=== PATIENT | female | born 1950 | race Caucasian/White ===

== ENCOUNTER 2019-04-14 12:19 | Outpatient (CLI) | payer MEDICARE, OTHER, SELFPAY ==
--- NOTE | 2019-04-14 12:49 | US_ITS ---
WS: [id number] ULTRASOUND-GUIDED LEFT BREAST BIOPSY HISTORY: ABNORMAL MAMMOGRAM LT BREAST COMPARISON: 03/17/2019 and 02/15/2019 Procedure, risks and complications are explained to the patient. Medications are reviewed. Consent is obtained. The mass in the LEFT breast is localized with ultrasound. Mass localized at 9:00, 3 cm from the nippl e. Skin is cleansed with ChloraPrep and anesthetized with 1% buffered lidocaine. Small dermatome is m katja. Under sterile conditions mass is biopsied with a 14-gauge Achieve needle. Multiple core biopsies are performed. Material placed in formalin and sent to pathology for review. No complications encoun tered. Breast tissue marker (Bard ultrasound enhanced ribbon): Yes, single. Patient left the radiology suite with no complications. Patient is instructed to return to [facility] or [facility] with any concerns. 1. Uncomplicated core needle biopsy LEFT breast mass at 9:00, 3 cm from the nipple. US/[place] [id number] IMPRESSION: PATHOLOGY: Invasive ductal carcinoma with mucinous features. Maximum diameter 7 mm. Breast tumor markers are pending. RECOMMENDATION: Follow-up with Dr. Morrell, oncology and breast surgeon.
[2019-04-25 11:55] LABS: Miscellaneous Test See Scanned Lab Rpt
== END 2019-04-14 12:20 | disposition home or self-care (01) ==
LOC: RAD 12:26
PROVIDERS: Radiology Diagnostic Radiology; Family Provider Family Medicine; PCP Family Medicine; Visit Provider Family Medicine
DX: R92.8 Other abnormal and inconclusive findings on diagnostic imaging of breast (principal)
CPT/HCPCS: 19083; 76942; 88305; 88361; 88367; 88374; J2001

== ENCOUNTER 2019-05-19 08:00 | Outpatient (CLI) | payer MEDICARE, OTHER, SELFPAY ==
--- NOTE | 2019-05-19 12:04 | ONC CON_ITS ---
Dr. Cyr New Patient Note Patient: Josephine Barriga Unit #: [id number]: 1950 Dicatated By: El Cyr M.D.Date of Visit: May 19, 2019 Onc MED New Patient/Consult Referring Physician: Dr. Dave Holland M.D. Chief Complaint: Breast cancer. 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 She has been in good general health. She had presented with an abnormal yearly screening mammogram. That study, from 02/15/2019, was BI-RADS 0, incomplete. Findings included a new 7 mm nodular density in the lower inner quadrant of the left breast. Her additional mammographic views and left breast ultrasound on 03/17/2019 was BI-RADS 4B, suspicious. There was again noted to be a 6 mm lesion along the posterior nipple line of the inner lower quadrant left breast. By ultrasound the lesion measured 7.5 x 5.3 x 4.4 mm. It was noted to have a thick-walled rim and a hypoechoic center. Biopsy was recommended. Ultrasound-guided core needle biopsy on 04/14/2019 showed invasive ductal carcinoma with mucinous features, favoring grade 1/3. The tumor was noted to measure 7 mm in greatest dimension. The breast prognostic profile showed ER positive at 94% and MA positive at 93%. HER-2/brandee was negative by IHC (0) and by FISH, amplification ratio 1.1 with 2.8 HER-2 copies per cell. The Ki-67 was slightly elevated at 20%. She was referred to Dr. Holland in [place]. On 05/04/2019 she underwent left breast lumpectomy with axillary sentinel lymph node biopsy. Pathology on the lumpectomy showed residual invasive mucinous carcinoma measuring 9 mm in maximum diameter, grade 2. There was a minor component of DCIS, less than 1 mm. The margins were free. The closest margin to invasive carcinoma was the superior margin at 1.5 mm. There was DCIS within 4 mm of the inferior and medial margins. There was no involvement in 2 sentinel lymph nodes. She is seen for further management of the breast cancer. She has been feeling good generally. She has good energy and activity tolerance. ECOG score is 0. Her appetite is good. She has no fever, night sweats, or hot flashes. She has no shortness of breath, cough, or chest pain. Her acid reflux is adequately managed with Nexium. She currently has no GI or complaints. She has no significant joint or bone pain. She has no focal neurologic symptoms. She underwent natural menopause at age 57. She had only 2 months of hormone replacement therapy. She did have a 25-year history of oral contraceptive use. A sister has been treated for breast cancer and a maternal aunt also had breast cancer. Past Medical History: Her only other medical illness is gastroesophageal reflux disease. Past Surgical History: She underwent ultrasound-guided core needle biopsy of the left breast on 04/14/2019. She underwent left breast lumpectomy with axillary sentinel lymph node biopsy on 05/04/2019. Her other surgical/procedural history includes vein stripping on the right leg in 2018 and bunionectomy on the right foot in 2011. Medications: NexIUM 1 (20 mg) Capsule Delayed Release Oral daily, Tums 1 (500 mg) Tablet, chewable Oral PRN Allergies: No Known Allergies. Social History: Ms. Barriga is and she is an unknown. Ms. Barriga has never smoked. She has no history of drinking. She had smoked in the past but she had quit by her early 20s. She has occasional alcohol use. Family History: Ms. Barriga's father is alive. Ms. Barriga has 1 sister who is alive: breast cancer. Father still living at age 97. Mother at age 78 with complications of dementia. A sister has been treated for breast cancer, and a maternal aunt had breast cancer. Another maternal aunt had lung cancer and another had kidney cancer. Review Of Symptoms: Constitutional - Her energy is good. She has normal activity. Her appetite is good and her weight is stable. No fever, chills, hot flashes, or night sweats. ECOG score is 0, Eyes - No recent change in vision, ENMT - No hearing loss or tinnitus. No sinus congestion/drainage. No mouth sores. No sore throat or difficulty swallowing, Hematologic/Lymphatic - No abnormal bruising or bleeding, Respiratory - No shortness of breath. No cough. No pleuritic pain or hemoptysis, Cardiovascular - No angina pain. No palpitations, Gastrointestinal - No nausea or vomiting. Her heartburn and acid reflux is under control with the Nexium. No diarrhea or constipation. No blood in the stool or black stools. She had a screening colonoscopy 3 years ago, Genitourinary (F) - No dysuria or hematuria. No urinary frequency. No urgency or incontinence, Musculoskeletal - She has occasional aches and pains attirbutable to age. She has no other joint or bone pain, Integumentary - No skin complications, Neurologic - No headache or dizziness. No numbness/paresthesias or other focal neurologic symptoms, Psychiatric - No anxiety or depression. No insomnia. Vital Signs: Performed on May 19, 2019 10:24: 65.00 in, 173.8 lbs, 98.2 F, 71, 22, 153/86 mm(hg) (HIGH), 98 %, 0, 0, Performed on May 19, 2019 10:24: 28.922 kg/m2 (HIGH), and Performed on May 19, 2019 08:40: 1.86 sq.m. Physical Examination: Constitutional - She appears to be in good general health, Eyes - Sclerae nonicteric. Conjunctivae clear, ENMT - No lesions noted in the oral cavity, Neck - No mass or thyromegaly, Hematologic/Lymphatic - No cervical or clavicular axillary adenopathy, Respiratory - Lungs are clear with good air movement bilaterally, Cardiovascular - Heart rhythm is regular. There is no no murmur, gallop, or rub noted, Breasts - The right breast shows no mass. There is induration/nodularity superior to the lumpectomy site in the medial aspect of the left breast. The incision appears well-healed. There is no axillary adenopathy noted, Abdomen - Soft and non-tender. Liver and spleen are not enlarged. There is no abdominal mass or ascites noted and there is no inguinal adenopathy, Back/Spine - No spine or CVA tenderness noted, Extremities - No edema. Dorsalis pedis pulses are palpable bilaterally, Integumentary - No rashes. No suspicious skin lesions noted, Neurologic - No focal neurologic deficits noted. Impression: 1. 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 2. She underwent left breast lumpectomy with axillary sentinel lymph node biopsy on 05/04/2019. Pathology showed uninvolved surgical margins. 3. She has a positive family history for breast cancer, including a sister and a maternal aunt. 4. She has GERD which is well controlled with Nexium. Plan: The pathology results, including the breast prognostic profile, were reviewed with the patient and her . We discussed the clinical implications. She has early stage breast cancer which is hormone receptor positive and HER-2/brandee negative. She is aware that she will need to complete radiation to the left breast, and she is scheduled to see Dr. Richards today for further discussion about the radiation. She is also recommended to take adjuvant hormonal therapy for 5 years, preferably with an aromatase inhibitor. I would ordinarily not be inclined to recommend adjuvant chemotherapy in this situation, but she indicated an interest in having further evaluation with Oncotype DX. As such, that study will be requested on the initial biopsy. Assuming her disease is low risk, she will proceed with radiation and she will begin her adjuvant hormonal therapy when her treatment is completed. If Oncotype DX comes back high risk, I will have further discussion regarding adjuvant chemotherapy. We also discussed the issue of genetic testing. Her sister apparently has already been tested, and if she is confirmed to be BRCA negative I do not feel that any additional genetic testing is indicated. Signed By: El Cyr M.D. <<Signature on File>>
--- NOTE | 2019-05-20 11:29 | N.ONRAD NP_ITS ---
Radiation Oncology New Patient Visit Patient: Josephine Barriga MR#: [id number] : 1950> Age: 69> Sex: Female> Dictated by: Dr. Vito Richards Date of Service: 05/19/2019 Referring Physician(s): El Cyr M.D. Primary Diagnosis: Z17.0 - estrogen receptor positive status [er+], Diagnosed 05/19/2019 (active) and C50.312 - malignant neoplasm of lower-inner quadrant of left female breast, Diagnosed 05/19/2019 (active), stage ia, t1b, pn0, m0, g2, her2 neg, er pos, pr p. Previous Treatment: left breast lumpectomy with sentinel lymph node dissection on 05/04/2019 Radiotherapy to date: Summary > No prior radiation therapy. History of Present Illness: This is a 69 y/o female who had an abnormal mammogram, BI-RADS 4B, which showed a 6 mm lesion along the posterior nipple line of the inner lower quadrant left breast. Ultrasound revealed a 7.5 x 5.3 x 4.4 mm hypoechoic nodule. She underwent an Ultrasound-guided core needle biopsy of this lesion which revealed infiltrating ductal carcinoma, favoring grade 1, ER+, AK+, Her 2-, Ki-67 at 20%. She denies any symptoms associated with the diagnosis. Specifically, she denies feeling a nodule/mass, skin changes, and nipple retraction/discharge. The patient underwent left breast lumpectomy with sentinel lymph node dissection on 05/04/2019. Surgical pathology showed invasive mucinous carcinoma measuring 9 mm in maximum diameter, grade 2. There was a minor component of DCIS < 1 mm. Surgical margins were negative. The closest margin to invasive carcinoma was the superior margin at 1.5 mm. There was DCIS within 4 mm of the inferior and medial margins. Two sentinel lymph nodes were negative for cancer. She has recovered well from the surgery with no complications. Oncotype Dx test was ordered and the result is pending. She comes in today to discuss about adjuvant radiation therapy. Current Medications: NexIUM, tums. Allergies: No Known Allergies Medical History: - Gastroesophageal reflux disease. No history of collagen vascular disease. No previous radiation therapy. Surgical History: Bunionectomy on the right foot in 2011, left breast lumpectomy with axillary sentinel lymph node biopsy on 05/04/2019, ultrasound-guided core needle biopsy of the left breast on 04/14/2019 and vein stripping on the right leg in 2019. Family History: Father still living at age 97. Mother at age 78 with complications of dementia. A sister has been treated for breast cancer, and a maternal aunt had breast cancer. Another maternal aunt had lung cancer and another had kidney cancer. Social History: Last screened on 05/19/2019 - Never smoked. - Never drank. Obstetrics/Gynecology History: G3, P2. Age of menarche at 13 years old. Went through natural menopause around age 56. H/O using BCP intermittently for about 25 years. Received HRT for about 2 months. Current Complaints / Review of Systems: Constitutional - Denies lack of appetite, fatigue, fever, night sweats and change in weight. Eyes - Denies blurred vision. ENMT - Denies dysphagia, ear pain, problems with hearing, mouth dryness, stomatitis, altered taste and tinnitus. Neck - Denies neck pain. Integumentary - Denies rash. Breasts - Denies pain. Cardiovascular - Denies arrhythmias and chest pain. Respiratory - Denies cough, dyspnea and wheezing. Gastrointestinal - Complains of heartburn / dyspepsia. Denies abdominal pain, constipation, diarrhea, melena / GI bleeding, nausea and vomiting. Genitourinary (F) - Complains of nocturia 1-3 time/night. Denies dysuria, frequency, urgency, vaginal discharge / bleeding and vaginal spotting. Musculoskeletal - Denies bone pain, joint pain and muscle weakness. Neurologic - Denies dizziness, abnormal gait and headaches. Endocrine - Denies diabetes, hot flashes and thyroid disease. Hematologic/Lymphatic - Denies tender or enlarged lymph nodes. Vital Signs: Performed on 05/19/2019 10:24 AM BMI - 28.922 kg/m2 (high), Height - 65.00 in, Weight - 173.8 lbs, Temperature - 98.2 f, Pulse - 71, Respiration - 22, O2 Sat - 98 %, Pain - 0, Fatigue - 0 and BP - 153/ 86 mm(hg)(high/). Physical Exam: General: Alert and oriented x 3. No acute distress. HEENT: Normocephalic, atraumatic. Extraocular Movements Intact: Pupils Equal, Round, Reactive to Light and Accommodation: Sclerae anicteric. Oral cavity is clear without lesions, masses or ulcers. NECK: Supple without supraclavicular or jugular lymphadenopathy. LUNGS: Clear to auscultation bilaterally without rales, rhonchi or wheeze. HEART: Regular rate and rhythm, normal S1 and S2 without murmur, gallop or rub. BREASTS: There is no mass/nodule palpated of the left breast except a seroma at the incision site. No skin change, nipple discharge or retraction. The surgical incision is healing well with no signs of bleeding or infection. No enlarged lymph nodes in the axilla. Exam of the contralateral breast is unremarkable. MUSCULOSKELETAL: No tenderness or percussion pain over the axial skeleton, scapulae or pelvis. ABDOMEN: Soft, nontender, nondistended without masses or organomegaly. Bowel sounds are present. EXTREMITIES: No peripheral edema is identified. Limited motor and sensory examination are grossly intact and symmetric bilaterally. NEUROLOGIC: Cranial nerves II ???XII are grossly intact. Normal sensation, strength 5/5 in all extremities, normal gait, no ataxia. Performance Status: 0 - Fully active, able to carry on all predisease activities without restrictions. (ECOG) Pathology: invasive mucinous carcinoma grade 2, her2 -, er +, pr + Lab: none pending Imaging: See HPI Impression: The patient is a 69 year old female recently diagnosed with pT1b, pN0, M0 infiltrating mucinous carcinoma of the left breast, grade 2, ER+, AK+, Her2-, s/p left breast lumpectomy with SLN dissection. Surgical margins are negative but close at 1.5mm of the superior margin. Plan: I recommend adjuvant whole breast irradiation to 42.5Gy in 16 fractions followed by a boost of 10Gy to the tumor bed. The procedure, benefit, risks and potential side effects of radiation therapy were explained to the patient and her family in detail. The potential side effects include but are not limited to fatigue, skin reaction, breast swelling/tenderness, fibrosis, slightly increased risk of rib fracture, damage to the lung and heart, lymphedema and secondary malignancy. Ms Barriga has expressed good understanding and decided to proceed with the radiotherapy. We will wait for the result of Oncotype Dx test. If chemotherapy is not indicated, she will come back for CT simulation on 06/05/2019. Signed by: 05/20/2019 11:28:09 AM <<Signature on File>> CPT Code: CPT Code: Signed By: Dr. Vito Richards, 05/20/2019 11:28:10 AM <<Signature on File>>
== END 2019-05-19 08:01 | disposition home or self-care (01) ==
PROVIDERS: Family Provider Family Medicine; PCP Family Medicine; Referring Provider Surgery; Visit Provider Internal Medicine Medical Oncology
DX: C50.312 Malignant neoplasm of lower-inner quadrant of left female breast (principal); Z17.0 Estrogen receptor positive status [ER+]; K21.9 Gastro-esophageal reflux disease without esophagitis; Z98.890 Other specified postprocedural states; Z78.0 Asymptomatic menopausal state; Z80.3 Family history of malignant neoplasm of breast; Z80.51 Family history of malignant neoplasm of kidney; Z80.1 Family history of malignant neoplasm of trachea, bronchus and lung
CPT/HCPCS: 99205

== ENCOUNTER 2019-06-20 06:45 | Outpatient (RCR) | payer MEDICARE, OTHER, SELFPAY ==
--- NOTE | 2019-06-05 | CT_ITS ---
Radiation Therapy Planning CT images; total exam DLP: 919.43 mGy-cm MTDD
--- NOTE | 2019-06-13 09:24 | ONCRAD TMN_ITS ---
Radiation Oncology Weekly Treatment Management Patient: Josephine Barriga MR#: [id number] : 1950> Age: 69> Sex: Female Dictated by: Dr. Ervin Schroeder Date of Service: 06/13/2019 Referring Physician(s) : El Cyr M.D. Primary Diagnosis: Z17.0 - Estrogen receptor positive status [ER+], Diagnosed 05/19/2019 (Active) C50.312 - Malignant neoplasm of lower-inner quadrant of left female breast, Diagnosed 05/19/2019 (Active) Stage IA, T1b, pN0, M0, G2, HER2 Neg, ER Pos, [place] P Radiotherapy to date: Course: LT ProneBreast, Treatment Site: LT Prone Brst, Ref. ID: LT ProneBreast, Energy: 15X/6X, Dose/Fx (cGy): 266, #Fx: , Dose Correction (cGy): 0, Total Dose (cGy): 532, Start Date: 06/12/2019, Elapsed Days: 1 Current Complaints/Interval History: Mrs. Barriga had her second treatment today. She is tolerating the set up well. She has no complaints at this time related to her breast. No questions about the treatment process. I discussed the timing of side effects. She was encouraged to speak up if problems develop. Continue treatment according to plan. Current Medications: NexIUM, tums. Allergies: No Known Allergies Vital Signs: Physical Exam: Appears stable, no skin erythema or desquamation. Performance Status: 0 - Fully active, able to carry on all predisease activities without restrictions. (ECOG) Lab: None pending in Radiation Oncology. Imaging: No new diagnostic imaging was performed since the last weekly treatment visit. All radiation therapy related imaging (including but not limited to kV, MV, and CBCT generated images) was reviewed. Appropriate changes, if any, were made to assure accurate target localization. Impression/Plan: Tolerating treatment well with expected side effects. Continue treatment as planned. CPT: 84985 Signed by: Dr. Ervin Schroeder>06/13/2019 9:22:42 AM <<Signature on File>>
== END 2019-06-20 23:59 | disposition home or self-care (01) ==
LOC: ONCMED 06:45
PROVIDERS: Family Provider Family Medicine; PCP Family Medicine
DX: Z51.0 Encounter for antineoplastic radiation therapy (principal); C50.312 Malignant neoplasm of lower-inner quadrant of left female breast; Z17.0 Estrogen receptor positive status [ER+]
CPT/HCPCS: 77280; 77290; 77295; 77300; 77307; 77332; 77334; 77412; 77417

== ENCOUNTER 2019-06-21 07:43 | Outpatient (RCR) | payer MEDICARE, OTHER, SELFPAY | END 2019-07-20 23:59 | disposition home or self-care (01) | LOC: SPT 07:43 | PROVIDERS: Family Provider Family Medicine; PCP Family Medicine; Referring Provider Specialist; Visit Provider Specialist | DX: I89.0 Lymphedema, not elsewhere classified (principal) | CPT/HCPCS: 97161 ==

== ENCOUNTER 2019-07-07 06:51 | Outpatient (RCR) | payer MEDICARE, OTHER, SELFPAY ==
--- NOTE | 2019-06-27 10:09 | ONCRAD TMN_ITS ---
Radiation Oncology Weekly Treatment Management Patient: Josephine Barriga MR#: [id number] : 1950> Age: 69> Sex: Female Dictated by: Dr. Armani Quesada Date of Service: 06/27/2019 Referring Physician(s) : El Cyr M.D. Primary Diagnosis: Z17.0 - Estrogen receptor positive status [ER+], Diagnosed 05/19/2019 (Active) C50.312 - Malignant neoplasm of lower-inner quadrant of left female breast, Diagnosed 05/19/2019 (Active) Stage IA, T1b, pN0, M0, G2, HER2 Neg, ER Pos, [place] P Radiotherapy to date: Course: LT ProneBreast, Treatment Site: LT Prone Brst, Ref. ID: LT ProneBreast, Energy: 15X/6X, Dose/Fx (cGy): 266, #Fx: , Dose Correction (cGy): 0, Total Dose (cGy): 3,192, Start Date: 06/12/2019, Elapsed Days: 15 Current Complaints/Interval History: Asymptomatic Current Medications: NexIUM, tums. Allergies: No Known Allergies Vital Signs: Physical Exam: Appears stable, no skin erythema or desquamation. Performance Status: 0 - Fully active, able to carry on all predisease activities without restrictions. (ECOG) Lab: None pending in Radiation Oncology. Imaging: No new diagnostic imaging was performed since the last weekly treatment visit. All radiation therapy related imaging (including but not limited to kV, MV, and CBCT generated images) was reviewed. Appropriate changes, if any, were made to assure accurate target localization. Impression/Plan: Tolerating treatment well with expected side effects. Continue treatment as planned. CPT: 52323 Signed by: Dr. Armani Quesada>06/27/2019 10:07:37 AM <<Signature on File>>
== END 2019-07-20 23:59 | disposition home or self-care (01) ==
LOC: ONCMED 06:51
PROVIDERS: Family Provider Family Medicine; PCP Family Medicine; Visit Provider Radiology Radiation Oncology
DX: Z51.0 Encounter for antineoplastic radiation therapy (principal); C50.312 Malignant neoplasm of lower-inner quadrant of left female breast; Z17.0 Estrogen receptor positive status [ER+]
CPT/HCPCS: 77336; 77412; 77417

== ENCOUNTER 2019-08-11 06:46 | Outpatient (RCR) | payer MEDICARE, OTHER, SELFPAY ==
--- NOTE | 2019-08-03 13:01 | ONCRAD EPV_ITS ---
Radiation Oncology Established Patient Visit Patient: Amy MR#: [id number] : 1950> Age: 69> Sex: Female> Account #: Dictated by: Ilda Wilson Date of Service: 08/03/2019 Referring Physician(s) : El Cyr M.D. Diagnosis: Z17.0 - Estrogen receptor positive status [ER+], Diagnosed 05/19/2019 (Active) C50.312 - Malignant neoplasm of lower-inner quadrant of left female breast, Diagnosed 05/19/2019 (Active) Stage IA, T1b, pN0, M0, G2, HER2 Neg, ER Pos, [place] P Radiotherapy to Date: Course: LT ProneBreast, Treatment Site: Boost 10Gy, Ref. ID: LT ProneBreast, Energy: 15X/6X, Dose/Fx (cGy): 250, #Fx: 4 / 4, Dose Correction (cGy): 0, Total Dose (cGy): 1,000, Start Date: 07/04/2019, End Date: 07/07/2019, Elapsed Days: 3 Treatment Site: LT Prone Brst, Ref. ID: LT ProneBreast, Energy: 15X/6X, Dose/Fx (cGy): 266, , Fx: 16 / 16, Dose Correction (cGy): 0, Total Dose (cGy): 4,256, Start Date: 06/12/2019, End Date: 07/03/2019, Elapsed Days: 21 Chief Complaint / History of Present Illness: She completed adjuvant breast radiation therapy 1 month ago. She is doing well following treatment she notes improved erythema and itch over the breast. She has no significant complaints and feels well. She is scheduled to see Dr. Cyr on August 10, 2000 he to address antiestrogen therapy. She is scheduled to have follow-up mammography in October 2019. Current Medications: NexIUM, tums. Allergies: No Known Allergies Current Complaints / Review of Systems: Constitutional - Denies fatigue, fever, night sweats and change in weight. Cardiovascular - Denies chest pain and palpitations. Respiratory - Denies cough and dyspnea. Gastrointestinal - Denies constipation, diarrhea, heartburn / dyspepsia, nausea and vomiting. Genitourinary (F) - Denies dysuria, frequency and hematuria. Musculoskeletal - Denies bone pain and joint pain. Neurologic - Denies headaches and insomnia. Psychiatric - Denies depression.. Vital Signs: Performed on 08/03/2019 10:26 AM Weight - 174.4 lbs, Temperature - 98.1 f, Pulse - 67, Respiration - 17, O2 Sat - 97 %, Pain - 0 and BP - 139/ 69 mm(hg). Physical Exam: Examination revealed minimal erythema over the left breast subtle fullness in the lateral aspect of the left breast into the axilla consistent with post surgical change she had no palpable cervical supraclavicular axillary adenopathy. Arm had full range of motion with no arm edema. Performance Status: 100 Lab: None pending. Pathology: Primary, z17.0 - estrogen receptor positive status [er+], Diagnosed 05/19/2019 (active) and Primary, c50.312 - malignant neoplasm of lower-inner quadrant of left female breast, Diagnosed 05/19/2019 (active) stage IA, t1b, pn0, m0, g2, her2 neg, er pos, pr pos. Imaging: See HPI Impression: Favorable stage I adenocarcinoma of the left breast she has done well following surgery and adjuvant radiation treatment. Her acute skin toxicities have nearly resolved. She has scheduled follow-up with Dr. Cyr in mammography as summarized above. She will return here in 1 year. Signed by: 08/03/2019 1:00:08 PM <<Signature on File>> Time spent with patient: CPT Code: CPT Code:
[2019-08-11 11:51] LABS: Basophils # 0.1 10^3/uL (0.0-0.1); Basophils % 1.6 %; Eosinophils # 0.3 10^3/uL (0.0-0.8); Eosinophils % 6.2 %; Hematocrit 43.3 % (37.0-47.0); Hemoglobin 13.8 g/dL (11.5-15.3); Lymphocytes # 1.5 10^3/uL (0.8-4.8); Lymphocytes % 29.2 %; Mean Corpuscular HGB Conc 31.9 g/dL (30.0-36.0); Mean Corpuscular Hemoglobin 30.2 pg (28.0-34.0); Mean Corpuscular Volume 94.7 fL (81-99); Mean Platelet Volume 9.7 fL (7.4-10.4); Monocytes # 0.3 10^3/uL (0.2-0.9); Monocytes % 6.4 %; Neutrophils # 2.8 10^3/uL (1.8-7.7); Neutrophils % 56.6 %; Nucleated Red Blood Cells % 0 %; Platelet Count 286 10^3/cmm (130-400); Red Blood Count 4.57 10^6/uL (4.1-5.3); Red Cell Distribution Width 12.3 % (12.1-15.1)
[2019-08-11 12:32] LABS: 25 Hydroxy Vitamin D 11 ng/mL (30-100); Alanine Aminotransferase 14 U/L (0-33); Albumin Level 4.2 g/dL (3.5-5.2); Alkaline Phosphatase 86 IU/L (35-105); Anion Gap 15.9 (5-19); Aspartate Amino Transferase 16 U/L (0-32); Blood Urea Nitrogen 12 mg/dL (8-23); Calcium 9.7 mg/dL (8.5-10.5); Carbon Dioxide 24 mmol/L (22-29); Chloride 102 mmol/L (98-107); Glomerular Filtration Rate 99.4 mL/min (90-130); Glucose 100 mg/dL (65-115); Osmolality Calculated 282 mOsm/kg (285-295); Potassium 3.9 mmol/L (3.5-5.1); Sodium 138 mmol/L (136-145); Total Bilirubin 0.4 mg/dL (0.15-1.2); Total Protein 7.2 g/dL (6.6-8.7)
--- NOTE | 2019-08-14 18:30 | ONC FU_ITS ---
Dr. Cyr Patient Follow-Up Note Patient: Josephine Barriga Unit #: [id number]: 1950 Dicatated By: El Cyr M.D.Date of Visit:August 11, 2019 Onc Med Follow-up/Prog Note Chief Complaint: Breast cancer. 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 She had presented with an abnormal yearly screening mammogram. That study, from 02/15/2019, was BI-RADS 0, incomplete. Findings included a new 7 mm nodular density in the lower inner quadrant of the left breast. Her additional mammographic views and left breast ultrasound on 03/17/2019 was BI-RADS 4B, suspicious. There was again noted to be a 6 mm lesion along the posterior nipple line of the inner lower quadrant left breast. By ultrasound the lesion measured 7.5 x 5.3 x 4.4 mm. It was noted to have a thick-walled rim and a hypoechoic center. Biopsy was recommended. Ultrasound-guided core needle biopsy on 04/14/2019 showed invasive ductal carcinoma with mucinous features, favoring grade 1/3. The tumor was noted to measure 7 mm in greatest dimension. The breast prognostic profile showed ER positive at 94% and SC positive at 93%. HER-2/brandee was negative by IHC (0) and by FISH, amplification ratio 1.1 with 2.8 HER-2 copies per cell. The Ki-67 was slightly elevated at 20%. She was referred to Dr. Holland in [place]. On 05/04/2019 she underwent left breast lumpectomy with axillary sentinel lymph node biopsy. Pathology on the lumpectomy showed residual invasive mucinous carcinoma measuring 9 mm in maximum diameter, grade 2. There was a minor component of DCIS, less than 1 mm. The margins were free. The closest margin to invasive carcinoma was the superior margin at 1.5 mm. There was DCIS within 4 mm of the inferior and medial margins. There was no involvement in 2 sentinel lymph nodes. I had seen her initially on 05/19/2019. Based on the clinical findings, I felt that it was unlikely that she would require adjuvant chemotherapy. However, as a precaution, I did request an Oncotype DX study. It showed a recurrence score of 3, corresponding to a 3% risk of distant recurrence at 9 years with adjuvant hormonal therapy. The predictive benefit of adjuvant chemotherapy was less than 1%. As such, adjuvant chemotherapy was not recommended. She then underwent radiation to the left breast. She completed treatment on 07/07/2019, total dose 5256 cGy. She tolerated the treatment well. She has been in very good general health. Her medical history is otherwise significant for GERD. She has had no other ongoing medical illnesses. She has a very minimal smoking history in the past. She had quit by her early 20s. A baseline bone density study on 04/08/2017 showed evidence of osteopenia with T score -2.4 in the lumbar spine. She is seen for a follow-up visit. She has been feeling good generally. She has good energy and she has normal activity. ECOG score is 0. Her appetite is good. She has no fever, night sweats, or hot flashes. She has no shortness of breath, cough, or chest pain. Her acid reflux symptoms have been controlled very well with Nexium. She currently has no GI or complaints. She has no significant joint or bone pain. She has no focal neurologic symptoms. Medications: NexIUM 1 (20 mg) Capsule Delayed Release Oral daily, Tums 1 (500 mg) Tablet, chewable Oral PRN Allergies: No Known Allergies. Review of Systems: Constitutional - Her energy is good. She has normal activity. Her appetite is good and her weight is stable. No fever, chills, hot flashes, or night sweats. ECOG score is 0, ENMT - No sinus congestion/drainage. No mouth sores. No sore throat or difficulty swallowing, Hematologic/Lymphatic - No abnormal bruising or bleeding, Respiratory - No shortness of breath. No cough. No pleuritic pain or hemoptysis, Cardiovascular - No angina pain. No palpitations, Gastrointestinal - No nausea or vomiting. Her acid reflux is managed adequately with Nexium. No diarrhea or constipation. No blood in the stool or black stools, Genitourinary (F) - No dysuria or hematuria. No urinary frequency. No urgency or incontinence, Musculoskeletal - She has no significant joint or bone pain, Neurologic - No headache or dizziness. No numbness/paresthesias or other focal neurologic symptoms, Psychiatric - No anxiety or depression. No insomnia. Vital Signs: Performed on August 11, 2019 10:33 Height - 65.00 in Weight - 175.8 lbs (HIGH) BSA - 1.87 sq.m BMI - 29.25 Temperature - 99.0 F (HIGH) Pulse - 72 /min Respiration - 18 /min BP - 141/71 mm(hg) (HIGH) O2 Sat - 95 % (LOW) Pain - 0 Physical Examination: Constitutional - She looks good generally, Eyes - Sclerae nonicteric. Conjunctivae clear, ENMT - No lesions noted in the oral cavity, Hematologic/Lymphatic - No cervical or clavicular adenopathy, Respiratory - Lungs are clear with good air movement bilaterally, Cardiovascular - Heart rhythm is regular. There is no murmur, gallop, or rub noted, Breasts - There is residual induration at the lumpectomy site in the medial aspect of the left breast. There are no breast masses noted. There is no axillary adenopathy noted, Abdomen - Soft. Liver and spleen are not enlarged. There is no abdominal mass or ascites noted and there is no inguinal adenopathy, Extremities - No edema. Dorsalis pedis pulses are palpable bilaterally, Neurologic - No focal neurologic deficits noted. Impression: 1. 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 Her Oncotype DX was low risk, recurrence score 3. 2. She underwent left breast lumpectomy with axillary sentinel lymph node biopsy on 05/04/2019. Pathology showed uninvolved surgical margins. 3. She underwent radiation to the left breast, completed on 07/07/2019 to a total dose of 5256 cGy. 4. She has a positive family history for breast cancer, including a sister and a maternal aunt. Her other medical illnesses include: 5. She has GERD which is well controlled with Nexium. 6. She had evidence of osteopenia by DEXA scan in March 2017, T score -2.4 in the lumbar spine. Plan: She has now completed radiation to the left breast. She will now begin adjuvant hormonal therapy with anastrozole 1 mg daily. The recommended duration of treatment will be 5 years. She is advised that this may cause/worsen the osteopenia, and she will need to start treatment for bone health, either with a bisphosphonate or with Prolia. She has advised that it also may cause joint pain as a side effect. She will have baseline laboratory studies today to include CBC, comprehensive metabolic profile, and a 25-hydroxy vitamin D level. She will be scheduled for an updated DEXA scan, as it has been more than 2 years since her last study. She will then start treatment for bone health. She will be scheduled for a follow-up visit in 3 months. Signed By: El Cyr M.D. <<Signature on File>>
== END 2019-08-20 23:59 | disposition home or self-care (01) ==
LOC: ONCMED 06:46
PROVIDERS: PCP Family Medicine; Visit Provider Internal Medicine Medical Oncology
DX: C50.312 Malignant neoplasm of lower-inner quadrant of left female breast (principal); Z17.0 Estrogen receptor positive status [ER+]; E55.9 Vitamin D deficiency, unspecified; M85.80 Other specified disorders of bone density and structure, unspecified site
CPT/HCPCS: 80053; 82306; 85025; 99214

== ENCOUNTER 2019-09-21 13:55 | Outpatient (RCR) | payer MEDICARE, OTHER, SELFPAY ==
--- NOTE | 2019-09-21 14:15 | XR_ITS ---
WS: [id number] DEXA (DUAL ENERGY X-RAY ABSORPTIOMETRY) Bone mineral density was performed using a [employer] machine. HISTORY: ESTROGEN receptor POSITIVE STATUS COMPARISON: 04/08/2017 Lumbar spine BMD (L1-L4): 0.878 g/cm2 T score: -2.5 Z score: -1.3 Total hip BMD: Left: 0.948 g/cm2. T score: -0.5 Z score: 0.6 Right: 0.974 g/cm2. T score: -0.3 Z score: 0.8 10 year probability of a major osteoporotic fracture is 9%. Compared to the prior study from 04/08/2017. Lumbar spine bone mineral density has decrease by 1.2%. Bilateral hips bone mineral density has decreased by 1.6%. XR/XR DEXA axial skeleton* [id number] IMPRESSION: OSTEOPOROSIS based upon the WHO classification for females. Slight decrease but no significant change in bone mineral density since the camila or study.
== END 2019-10-20 23:59 | disposition home or self-care (01) ==
LOC: RADWPI 13:55
PROVIDERS: Family Provider Family Medicine; PCP Family Medicine; Visit Provider Internal Medicine Medical Oncology
DX: M81.0 Age-related osteoporosis without current pathological fracture (principal)
CPT/HCPCS: 77080

== ENCOUNTER 2019-12-06 15:18 | Outpatient (CLI) | payer MEDICARE, OTHER, SELFPAY ==
[2019-12-06] MEDS: denosumab 60 mg SDV SUBCUT (15:55)
--- NOTE | 2019-12-09 14:22 | ONC FU_ITS ---
Dr. Cyr Patient Follow-Up Note Patient: Josephine Barriga Unit #: [id number]: 1950 Dicatated By: El Cyr M.D.Date of Visit:Dec 06, 2019 Onc Med Follow-up/Prog Note Chief Complaint: Breast cancer. 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 She had presented with an abnormal yearly screening mammogram. That study, from 02/15/2019, was BI-RADS 0, incomplete. Findings included a new 7 mm nodular density in the lower inner quadrant of the left breast. Her additional mammographic views and left breast ultrasound on 03/17/2019 was BI-RADS 4B, suspicious. There was again noted to be a 6 mm lesion along the posterior nipple line of the inner lower quadrant left breast. By ultrasound the lesion measured 7.5 x 5.3 x 4.4 mm. It was noted to have a thick-walled rim and a hypoechoic center. Biopsy was recommended. Ultrasound-guided core needle biopsy on 04/14/2019 showed invasive ductal carcinoma with mucinous features, favoring grade 1/3. The tumor was noted to measure 7 mm in greatest dimension. The breast prognostic profile showed ER positive at 94% and W[place] positive at 93%. HER-2/brandee was negative by IHC (0) and by FISH, amplification ratio 1.1 with 2.8 HER-2 copies per cell. The Ki-67 was slightly elevated at 20%. She was referred to Dr. Holland in [place]. On 05/04/2019 she underwent left breast lumpectomy with axillary sentinel lymph node biopsy. Pathology on the lumpectomy showed residual invasive mucinous carcinoma measuring 9 mm in maximum diameter, grade 2. There was a minor component of DCIS, less than 1 mm. The margins were free. The closest margin to invasive carcinoma was the superior margin at 1.5 mm. There was DCIS within 4 mm of the inferior and medial margins. There was no involvement in 2 sentinel lymph nodes. I had seen her initially on 05/19/2019. Based on the clinical findings, I felt that it was unlikely that she would require adjuvant chemotherapy. However, as a precaution, I did request an Oncotype DX study. It showed a recurrence score of 3, corresponding to a 3% risk of distant recurrence at 9 years with adjuvant hormonal therapy. The predictive benefit of adjuvant chemotherapy was less than 1%. As such, adjuvant chemotherapy was not recommended. She then underwent radiation to the left breast. She completed treatment on 07/07/2019, total dose 5256 cGy. She tolerated the treatment well. She began adjuvant hormonal therapy with anastrozole 1 mg daily on 08/11/2019. She has been in very good general health. Her medical history is otherwise significant for GERD. She has had no other ongoing medical illnesses. She has a very minimal smoking history in the past. She had quit by her early 20s. A baseline bone density study on 04/08/2017 showed evidence of osteopenia with T score -2.4 in the lumbar spine. She is seen for a follow-up visit. She has been feeling good generally. She has had some mild nausea with the anastrozole, but it has been tolerable taking the medication in the evening. She has good energy and activity tolerance. ECOG score is 0. Her appetite is good. She has no fever, night sweats, or hot flashes. She has no shortness of breath, cough, or chest pain. She has no other GI or complaints. She has her normal joint soreness. She does not complain of headache or dizziness. She has no focal neurologic symptoms. Medications: Anastrozole 1 Tablet (of 1 mg) Oral daily, NexIUM 1 (20 mg) Capsule Delayed Release Oral daily, Tums 1 (500 mg) Tablet, chewable Oral PRN Allergies: No Known Allergies. Review of Systems: Constitutional - She has good energy and activity tolerance. Appetite is good and weight is stable. No fever, night sweats, or hot flashes. ECOG score is 0, ENMT - No sinus congestion/drainage. No mouth sores. No sore throat or difficulty swallowing, Hematologic/Lymphatic - No abnormal bruising or bleeding, Respiratory - No shortness of breath. No cough. No pleuritic pain or hemoptysis, Cardiovascular - No angina pain. No palpitations, Gastrointestinal - She has had mild nausea with the anastrozole. Her acid reflux is adequately managed with Nexium. No diarrhea or constipation. No blood in the stool or black stools, Genitourinary (F) - No dysuria or hematuria. No urinary frequency. No urgency or incontinence, Musculoskeletal - She has normal joint soreness, Integumentary - No skin rash, Neurologic - No headache or dizziness. No numbness or tingling. No other focal neurologic symptoms, Psychiatric - No anxiety or depression. No insomnia. Vital Signs: Performed on Dec 06, 2019 15:25 Height - 65.00 in Weight - 175.4 lbs (LOW) BSA - 1.87 sq.m BMI - 29.19 Temperature - 99.2 F (HIGH) Pulse - 77 /min Respiration - 16 /min BP - 151/64 mm(hg) (HIGH) O2 Sat - 96 % Pain - 0 Physical Examination: Constitutional - She looks good generally, Eyes - Sclerae nonicteric. Conjunctivae clear, ENMT - No lesions noted in the oral cavity, Hematologic/Lymphatic - No cervical, clavicular, or axillary adenopathy, Respiratory - Lungs are clear with good air movement bilaterally, Cardiovascular - Heart rhythm is regular. There is no murmur, gallop, or rub noted, Abdomen - Soft. Liver and spleen are not enlarged. There is no abdominal mass or ascites noted and there is no inguinal adenopathy, Extremities - No edema. Dorsalis pedis pulses are palpable bilaterally, Neurologic - No focal neurologic deficits noted. Impression: 1. 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 Her Oncotype DX was low risk, recurrence score 3. 2. She underwent left breast lumpectomy with axillary sentinel lymph node biopsy on 05/04/2019. Pathology showed uninvolved surgical margins. 3. She underwent radiation to the left breast, completed on 07/07/2019 to a total dose of 5256 cGy. 4. She has a positive family history for breast cancer, including a sister and a maternal aunt. Her other medical illnesses include: 5. She has GERD which is well controlled with Nexium. 6. She had evidence of osteopenia by DEXA scan in March 2017, T score -2.4 in the lumbar spine. 7. She was found to have vitamin D deficiency. She began adjuvant hormonal therapy with anastrozole 1 mg daily on 08/11/2019. She has had some mild nausea with it, but it has been tolerable taking it in the evening. She has had no other adverse effects. Overall, she is doing well clinically. Plan: She continues adjuvant hormonal therapy with anastrozole 1 mg daily. Given the results of her bone density study, I have recommended that she start taking Prolia for bone health. She will start today with 60 mg of Prolia by subcutaneous injection, and she also will start vitamin D3 supplementation. She returns in 6 months. Signed By: El Cyr M.D. <<Signature on File>>
== END 2019-12-06 15:19 | disposition home or self-care (01) ==
LOC: ONCMED 15:22
PROVIDERS: PCP Family Medicine; Visit Provider Internal Medicine Medical Oncology
DX: C50.312 Malignant neoplasm of lower-inner quadrant of left female breast (principal); Z17.0 Estrogen receptor positive status [ER+]; M81.0 Age-related osteoporosis without current pathological fracture; K21.9 Gastro-esophageal reflux disease without esophagitis; E55.9 Vitamin D deficiency, unspecified; Z79.818 Long term (current) use of other agents affecting estrogen receptors and estrogen levels
CPT/HCPCS: 96372; 99214; J0897

== ENCOUNTER 2020-06-03 10:00 | Outpatient (CLI) | payer MEDICARE, OTHER, SELFPAY ==
[2020-06-03 10:36] LABS: Basophils # 0.1 10^3/uL (0.0-0.1); Basophils % 1.5 %; Eosinophils # 0.3 10^3/uL (0.0-0.8); Eosinophils % 6.6 %; Hematocrit 42.9 % (37.0-47.0); Hemoglobin 13.5 g/dL (11.5-15.3); Lymphocytes # 1.6 10^3/uL (0.8-4.8); Lymphocytes % 30.3 %; Mean Corpuscular HGB Conc 31.5 g/dL (30.0-36.0); Mean Corpuscular Hemoglobin 29.5 pg (28.0-34.0); Mean Corpuscular Volume 93.9 fL (81-99); Mean Platelet Volume 9.7 fL (7.4-10.4); Monocytes # 0.4 10^3/uL (0.2-0.9); Monocytes % 6.7 %; Neutrophils # 2.84 10^3/uL (1.8-7.7); Neutrophils % 54.7 %; Nucleated Red Blood Cells % 0 %; Platelet Count 305 10^3/cmm (130-400); Red Blood Count 4.57 10^6/uL (4.1-5.3); Red Cell Distribution Width 12.5 % (12.1-15.1); White Blood Count 5.2 10^3/uL (4.0-10.0)
[2020-06-03 11:29] LABS: 25 Hydroxy Vitamin D 32 ng/mL (30-100); Alanine Aminotransferase 13 U/L (0-33); Alkaline Phosphatase 73 IU/L (35-105); Anion Gap 9.9 (5-19); Aspartate Amino Transferase 14 U/L (0-32); Blood Urea Nitrogen 11 mg/dL (8-23); Calcium 9.1 mg/dL (8.5-10.5); Carbon Dioxide 29 mmol/L (22-29); Chloride 101 mmol/L (98-107); Globulin 2.8 g/dL (1.3-4.6); Glucose 102 mg/dL (65-115); Osmolality Calculated 282 mOsm/kg (285-295); Potassium 3.9 mmol/L (3.5-5.1); Sodium 136 mmol/L (136-145); Total Bilirubin 0.3 mg/dL (0.15-1.2); Total Protein 6.8 g/dL (6.6-8.7)
== END 2020-06-03 10:01 | disposition home or self-care (01) ==
PROVIDERS: PCP Family Medicine; Visit Provider Internal Medicine Medical Oncology
DX: C50.312 Malignant neoplasm of lower-inner quadrant of left female breast (principal); Z17.0 Estrogen receptor positive status [ER+]; M81.0 Age-related osteoporosis without current pathological fracture; E55.9 Vitamin D deficiency, unspecified
CPT/HCPCS: 80053; 82306; 85025

== ENCOUNTER 2020-06-05 14:25 | Outpatient (CLI) | payer MEDICARE, OTHER, SELFPAY ==
[2020-06-05] MEDS: denosumab 60 mg SDV SUBCUT (15:07)
--- NOTE | 2020-06-05 15:36 | ONC FU_ITS ---
Dr. Cyr Patient Follow-Up Note Patient: Josephine Barriga Unit #: [id number]: 1950 Dicatated By: El Cyr M.D.Date of Visit:Jun 05, 2020 Onc Med Follow-up/Prog Note Chief Complaint: Breast cancer. 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 She had presented with an abnormal yearly screening mammogram. That study, from 02/15/2019, was BI-RADS 0, incomplete. Findings included a new 7 mm nodular density in the lower inner quadrant of the left breast. Her additional mammographic views and left breast ultrasound on 03/17/2019 was BI-RADS 4B, suspicious. There was again noted to be a 6 mm lesion along the posterior nipple line of the inner lower quadrant left breast. By ultrasound the lesion measured 7.5 x 5.3 x 4.4 mm. It was noted to have a thick-walled rim and a hypoechoic center. Biopsy was recommended. Ultrasound-guided core needle biopsy on 04/14/2019 showed invasive ductal carcinoma with mucinous features, favoring grade 1/3. The tumor was noted to measure 7 mm in greatest dimension. The breast prognostic profile showed ER positive at 94% and [place] positive at 93%. HER-2/brandee was negative by IHC (0) and by FISH, amplification ratio 1.1 with 2.8 HER-2 copies per cell. The Ki-67 was slightly elevated at 20%. She was referred to Dr. Holland in [place]. On 05/04/2019 she underwent left breast lumpectomy with axillary sentinel lymph node biopsy. Pathology on the lumpectomy showed residual invasive mucinous carcinoma measuring 9 mm in maximum diameter, grade 2. There was a minor component of DCIS, less than 1 mm. The margins were free. The closest margin to invasive carcinoma was the superior margin at 1.5 mm. There was DCIS within 4 mm of the inferior and medial margins. There was no involvement in 2 sentinel lymph nodes. I had seen her initially on 05/19/2019. Based on the clinical findings, I felt that it was unlikely that she would require adjuvant chemotherapy. However, as a precaution, I did request an Oncotype DX study. It showed a recurrence score of 3, corresponding to a 3% risk of distant recurrence at 9 years with adjuvant hormonal therapy. The predictive benefit of adjuvant chemotherapy was less than 1%. As such, adjuvant chemotherapy was not recommended. She then underwent radiation to the left breast. She completed treatment on 07/07/2019, total dose 5256 cGy. She tolerated the treatment well. She began adjuvant hormonal therapy with anastrozole 1 mg daily on 08/11/2019. Her baseline bone density study on 09/21/2019 showed T score -2.5 in the lumbar spine, consistent with osteoporosis. She began treatment with Prolia in November 2019. She has been in very good general health. Her medical history is otherwise significant for GERD. She has had no other ongoing medical illnesses. She has a very minimal smoking history in the past. She had quit by her early 20s. She is seen for a follow-up visit. She has been feeling good generally. She says she does get tired, but she remains very active. Her ECOG score is 0. She has good appetite. She has no fever, night sweats, or hot flashes. She has no shortness of breath, cough, or chest pain. Her acid reflux is adequately managed with Nexium. She has no other GI or complaints. She currently is not having any significant joint or bone pain. She does not complain of headache or dizziness. She has no focal neurologic symptoms. Medications: Anastrozole 1 Tablet (of 1 mg) Oral daily, NexIUM 1 (20 mg) Capsule Delayed Release Oral daily, Tums 1 (500 mg) Tablet, chewable Oral PRN Allergies: No Known Allergies. Vital Signs: Performed on Jun 05, 2020 14:36 Height - 65.00 in Weight - 174.6 lbs (LOW) BSA - 1.87 sq.m BMI - 29.06 Temperature - 97.2 F (LOW) Pulse - 80 /min Respiration - 18 /min BP - 155/80 mm(hg) (HIGH) O2 Sat - 98 % Pain - 0 Fatigue - 0 Physical Examination: Constitutional - She looks good generally, Eyes - Sclerae nonicteric. Conjunctivae clear, ENMT - No lesions noted in the oral cavity, Hematologic/Lymphatic - No cervical, clavicular, or axillary adenopathy, Respiratory - Lungs are clear with good air movement bilaterally, Cardiovascular - Heart rhythm is regular. There is no murmur, gallop, or rub noted, Abdomen - Soft. Liver and spleen are not enlarged. There is no abdominal mass or ascites noted and there is no inguinal adenopathy, Extremities - No edema, Neurologic - No focal neurologic deficits noted. Lab/Imaging: CBC shows hemoglobin 13.5 g, white blood cell count 5200, and platelet count 305,000. Comprehensive metabolic profile shows normal renal function with BUN 11 and creatinine 0.7 mg/dL. The bilirubin and liver enzymes are normal. The 25-hydroxy vitamin D level is low normal at 32 ng/mL. Problem List: 1. Grade 2 invasive mucinous carcinoma of the left breast, stage IA (pT1b, pN0, M0), ER/OK positive and HER-2/brandee negative. Her Oncotype DX was low risk, recurrence score 3. 2. She has a positive family history for breast cancer, including a sister and a maternal aunt. 3. GERD. 4. Osteoporosis with T score -2.5 in the lumbar spine on her baseline Dexa scan in September 2019. 5. She was found to have vitamin D deficiency. Problems Addressed with this Encounter and Plan: 1. 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 Her Oncotype DX was low risk, recurrence score 3. She underwent left breast lumpectomy with axillary sentinel lymph node biopsy on 05/04/2019. Pathology showed uninvolved surgical margins. She underwent radiation to the left breast, completed on 07/07/2019 to a total dose of 5256 cGy. She began adjuvant hormonal therapy with anastrozole 1 mg daily on 08/11/2019. During follow-up she has tolerated it with no significant adverse effects. Overall, she appears to be doing well clinically with no evidence of recurrence of the breast cancer. She continues adjuvant hormonal therapy with anastrozole 1 mg daily. She will be scheduled for a follow-up visit in 6 months. 2. She has osteoporosis with T score -2.5 in the lumbar spine on her baseline DEXA scan in September 2019. She also was found to have vitamin D deficiency. She began vitamin D supplementation and she started treatment with Prolia in November 2019. She tolerated the initial injection with no adverse effects. She will continue the Prolia 60 mg by subcutaneous injection every 6 months and she continues her vitamin D supplement. Signed By: El Cyr M.D. <<Signature on File>>
== END 2020-06-05 14:26 | disposition home or self-care (01) ==
PROVIDERS: PCP Family Medicine; Visit Provider Internal Medicine Medical Oncology
DX: C50.312 Malignant neoplasm of lower-inner quadrant of left female breast (principal); M81.0 Age-related osteoporosis without current pathological fracture; K21.9 Gastro-esophageal reflux disease without esophagitis; Z79.811 Long term (current) use of aromatase inhibitors; Z80.3 Family history of malignant neoplasm of breast; Z92.3 Personal history of irradiation; Z79.899 Other long term (current) drug therapy; Z17.0 Estrogen receptor positive status [ER+]
CPT/HCPCS: 96372; 99214; J0897

== ENCOUNTER 2020-12-09 09:14 | Outpatient (CLI) | payer MEDICARE, OTHER, SELFPAY ==
[2020-12-09 09:53] LABS: Basophils # 0.1 10^3/uL (0.0-0.1); Basophils % 1.4 %; Eosinophils # 0.3 10^3/uL (0.0-0.8); Hematocrit 44.3 % (37.0-47.0); Lymphocytes # 1.5 10^3/uL (0.8-4.8); Lymphocytes % 27.2 %; Mean Corpuscular HGB Conc 31.6 g/dL (30.0-36.0); Mean Corpuscular Hemoglobin 29.9 pg (28.0-34.0); Mean Corpuscular Volume 94.7 fl (81-99); Mean Platelet Volume 9.6 fL (7.4-10.4); Monocytes # 0.4 10^3/uL (0.2-0.9); Monocytes % 7.2 %; Neutrophils # 3.27 10^3/uL (1.8-7.7); Neutrophils % 58.8 %; Nucleated Red Blood Cells % 0 %; Platelet Count 322 10^3/cmm (130-400); Red Blood Count 4.68 10^6/uL (4.1-5.3); Red Cell Distribution Width 12.8 % (12.1-15.1); White Blood Count 5.6 10^3/uL (4.0-10.0)
[2020-12-09 10:10] LABS: Alanine Aminotransferase 13 U/L (0-33); Alkaline Phosphatase 85 IU/L (35-105); Anion Gap 12.1 (5-19); Aspartate Amino Transferase 14 U/L (0-32); Blood Urea Nitrogen 8 mg/dL (8-23); Calcium 9.1 mg/dL (8.5-10.5); Carbon Dioxide 27 mmol/L (22-29); Chloride 101 mmol/L (98-107); Glucose 102 mg/dL (65-115); Osmolality Calculated 281 mOsm/kg (285-295); Potassium 4.1 mmol/L (3.5-5.1); Sodium 136 mmol/L (136-145); Total Bilirubin 0.3 mg/dL (0.15-1.2)
[2020-12-09] MEDS: denosumab 60 mg SDV SUBCUT (11:23)
--- NOTE | 2020-12-09 19:23 | ONC FU_ITS ---
Dr. Cyr Patient Follow-Up Note Patient: Josephine Barriga Unit #: [id number]: 1950 Dicatated By: El Cyr M.D.Date of Visit:Dec 09, 2020 Onc Med Follow-up/Prog Note Chief Complaint: Breast cancer. 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 She had presented with an abnormal yearly screening mammogram. That study, from 02/15/2019, was BI-RADS 0, incomplete. Findings included a new 7 mm nodular density in the lower inner quadrant of the left breast. Her additional mammographic views and left breast ultrasound on 03/17/2019 was BI-RADS 4B, suspicious. There was again noted to be a 6 mm lesion along the posterior nipple line of the inner lower quadrant left breast. By ultrasound the lesion measured 7.5 x 5.3 x 4.4 mm. It was noted to have a thick-walled rim and a hypoechoic center. Biopsy was recommended. Ultrasound-guided core needle biopsy on 04/14/2019 showed invasive ductal carcinoma with mucinous features, favoring grade 1/3. The tumor was noted to measure 7 mm in greatest dimension. The breast prognostic profile showed ER positive at 94% and OH positive at 93%. HER-2/brandee was negative by IHC (0) and by FISH, amplification ratio 1.1 with 2.8 HER-2 copies per cell. The Ki-67 was slightly elevated at 20%. She was referred to Dr. Holland in [place]. On 05/04/2019 she underwent left breast lumpectomy with axillary sentinel lymph node biopsy. Pathology on the lumpectomy showed residual invasive mucinous carcinoma measuring 9 mm in maximum diameter, grade 2. There was a minor component of DCIS, less than 1 mm. The margins were free. The closest margin to invasive carcinoma was the superior margin at 1.5 mm. There was DCIS within 4 mm of the inferior and medial margins. There was no involvement in 2 sentinel lymph nodes. I had seen her initially on 05/19/2019. Based on the clinical findings, I felt that it was unlikely that she would require adjuvant chemotherapy. However, as a precaution, I did request an Oncotype DX study. It showed a recurrence score of 3, corresponding to a 3% risk of distant recurrence at 9 years with adjuvant hormonal therapy. The predictive benefit of adjuvant chemotherapy was less than 1%. As such, adjuvant chemotherapy was not recommended. She then underwent radiation to the left breast. She completed treatment on 07/07/2019, total a dose 5256 cGy. She tolerated the treatment well. She began adjuvant hormonal therapy with anastrozole 1 mg daily on 08/11/2019. Her baseline bone density study on 09/21/2019 showed T score -2.5 in the lumbar spine, consistent with osteoporosis. She began treatment with Prolia in November 2019. She has been in very good general health. Her medical history is otherwise significant for GERD. She has had no other ongoing medical illnesses. She has a very minimal smoking history in the past. She had quit by her early 20s. She is seen for a follow-up visit. She has been continuing her regular follow-up with Dr. Holland every 6 months. Her genetic screening from May 2020 was negative for a BRCA mutation. 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 She has been feeling good generally. She has good energy and activity tolerance. ECOG score is 0. Her appetite is good. She has no fever, night sweats, or hot flashes. She has no shortness of breath, cough, or chest pain. Her acid reflux symptoms have been adequately managed with Nexium. She has no other GI or complaints. She has no significant joint or bone pain. She does not complain of headache or dizziness, and she has no focal neurologic symptoms. Medications: Anastrozole 1 Tablet (of 1 mg) Oral daily, NexIUM 1 (20 mg) Capsule Delayed Release Oral daily, Tums 1 (500 mg) Tablet, chewable Oral PRN Allergies: No Known Allergies. Vital Signs: Performed on Dec 09, 2020 11:24 Height - 65.00 in Weight - 174 lbs (LOW) BSA - 1.86 sq.m BMI - 28.96 Temperature - 97.9 F (LOW) Pulse - 69 /min Respiration - 18 /min BP - 146/80 mm(hg) (HIGH) O2 Sat - 98 % Pain - 0 Fatigue - 0 Physical Examination: Constitutional - She looks good generally, Eyes - Sclerae nonicteric. Conjunctivae clear, ENMT - No lesions noted in the oral cavity, Hematologic/Lymphatic - No cervical, clavicular, or axillary adenopathy, Respiratory - Lungs are clear with good air movement bilaterally, Cardiovascular - Heart rhythm is regular. There is no murmur, gallop, or rub noted, Abdomen - Soft. Liver and spleen are not enlarged. There is no abdominal mass or ascites noted and there is no inguinal adenopathy, Extremities - No edema, Neurologic - No focal neurologic deficits noted. Lab/Imaging: Test performed on Dec 09, 2020 09:30 Sodium 136 mmol/L Potassium 4.1 mmol/L Chloride 101 mmol/L CO2 27 mmol/L Anion Gap 12.1 BUN 8 mg/dL Creatinine 0.7 mg/dL Cr Clearance (Est) 94.51 mL/min eGFR 83.0 mL/min Glucose 102 mg/dL Osmolality - Calculated 281 mOsm/kg Calcium 9.1 mg/dL Protein, Total 7.0 g/dL Albumin 4.0 g/dL Globulin 3.0 g/dL Bilirubin, Total 0.3 mg/dL ALT (SGPT) 13 U/L AST (SGOT) 14 U/L Alkaline Phosphatase 85 IU/L WBC 5.6 10 3/uL RBC 4.68 10 6/uL HGB 14.0 g/dL HCT 44.3 % MCV 94.7 fl MCH 29.9 pg MCHC 31.6 g/dL RDW 12.8 % Platelet Count 322 10 3/cmm MPV 9.6 fL Neutrophils 3.27 10 3/uL Lymphocytes 1.5 10 3/uL Monocytes 0.4 10 3/uL Eosinophils 0.3 10 3/uL Basophils 0.1 10 3/uL Neutrophil % 58.8 % Lymphocyte % 27.2 % Monocyte % 7.2 % Eosinophil % 5.0 % Basophils % 1.4 % NRBC % 0 % Problem List: 1. Grade 2 invasive mucinous carcinoma of the left breast, stage IA (pT1b, pN0, M0), ER/OH positive and HER-2/brandee negative. Her Oncotype DX was low risk, recurrence score 3. 2. She has a positive family history for breast cancer, including a sister and a maternal aunt. 3. GERD. 4. Osteoporosis with T score -2.5 in the lumbar spine on her baseline Dexa scan in September 2019. 5. She was found to have vitamin D deficiency. Problems Addressed with this Encounter and Plan: 1. 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 Her Oncotype DX was low risk, recurrence score 3. She underwent left breast lumpectomy with axillary sentinel lymph node biopsy on 05/04/2019. Pathology showed uninvolved surgical margins. She underwent radiation to the left breast, completed on 07/07/2019 to a total dose of 5256 cGy. She began adjuvant hormonal therapy with anastrozole 1 mg daily on 08/11/2019. During follow-up she has tolerated it with no significant adverse effects. Overall, she appears to be doing well clinically with no evidence of recurrence of the breast cancer. She continues adjuvant hormonal therapy with anastrozole 1 mg daily. She will be scheduled for a follow-up visit in 6 months. 2. On her her genetic screening she was found to be heterozygous for a mutation involving the HERB gene. This does put her at increased risk for some cancers, and also would potentially confer some risk to her children, each of whom would have a 50% chance of harboring the mutation. For her daughter, it would potentially have implications for her breast cancer screening and for her sons, it would be an indication to have screening for prostate cancer. 3. She has osteoporosis with T score -2.5 in the lumbar spine on her baseline DEXA scan in September 2019. She also was found to have vitamin D deficiency. She began vitamin D supplementation and she started treatment with Prolia in November 2019. She tolerated the initial injection with no adverse effects. She will continue the Prolia 60 mg by subcutaneous injection every 6 months and she continues her vitamin D supplement. Signed By: El Cyr M.D. <<Signature on File>>
== END 2020-12-09 09:15 | disposition home or self-care (01) ==
LOC: ONCMED 09:18
PROVIDERS: PCP Family Medicine; Visit Provider Internal Medicine Medical Oncology
DX: C50.812 Malignant neoplasm of overlapping sites of left female breast (principal); Z17.0 Estrogen receptor positive status [ER+]; Z80.3 Family history of malignant neoplasm of breast; K21.9 Gastro-esophageal reflux disease without esophagitis; M81.0 Age-related osteoporosis without current pathological fracture; E55.9 Vitamin D deficiency, unspecified; Z79.811 Long term (current) use of aromatase inhibitors; Z79.899 Other long term (current) drug therapy; Z92.21 Personal history of antineoplastic chemotherapy
CPT/HCPCS: 36415; 80053; 85025; 96372; 99215; J0897

== ENCOUNTER 2021-06-10 10:54 | Outpatient (CLI) | payer MEDICARE, OTHER, SELFPAY ==
[2021-06-10 11:24] LABS: Basophils # 0.1 10^3/uL (0.0-0.1); Eosinophils # 0.3 10^3/uL (0.0-0.8); Eosinophils % 4.6 %; Hematocrit 41.8 % (37.0-47.0); Hemoglobin 13.7 g/dL (11.5-15.3); Lymphocytes # 1.9 10^3/uL (0.8-4.8); Lymphocytes % 27.9 %; Mean Corpuscular HGB Conc 32.8 g/dL (30.0-36.0); Mean Corpuscular Hemoglobin 29.8 pg (28.0-34.0); Mean Corpuscular Volume 90.9 fl (81-99); Mean Platelet Volume 9.4 fL (7.4-10.4); Monocytes # 0.5 10^3/uL (0.2-0.9); Monocytes % 6.7 %; Neutrophils # 4.01 10^3/uL (1.8-7.7); Neutrophils % 59.7 %; Nucleated Red Blood Cells % 0 %; Platelet Count 294 10^3/cmm (130-400); Red Cell Distribution Width 12.6 % (12.1-15.1); White Blood Count 6.7 10^3/uL (4.0-10.0)
[2021-06-10 11:56] LABS: Alanine Aminotransferase 14 U/L (0-33); Albumin Level 4.3 g/dL (3.5-5.2); Alkaline Phosphatase 87 IU/L (35-105); Aspartate Amino Transferase 13 U/L (0-32); Blood Urea Nitrogen 15 mg/dL (8-23); Calcium 9.8 mg/dL (8.5-10.5); Carbon Dioxide 26 mmol/L (22-29); Chloride 102 mmol/L (98-107); Globulin 2.6 g/dL (1.3-4.6); Glomerular Filtration Rate 82.7 mL/min (90-130); Glucose 91 mg/dL (65-115); Osmolality Calculated 290 mOsm/kg (285-295); Sodium 140 mmol/L (136-145); Total Bilirubin 0.3 mg/dL (0.15-1.2); Total Protein 6.9 g/dL (6.6-8.7)
[2021-06-10] MEDS: denosumab 60 mg SDV SUBCUT (12:55)
[2021-06-10 12:58] LABS: 25 Hydroxy Vitamin D 31 ng/mL (30-100)
--- NOTE | 2021-06-14 09:32 | ONC FU_ITS ---
Dr. Cyr Patient Follow-Up Note Patient: Josephine Barriga Unit #: [id number]: 1950 Dicatated By: El Cyr M.D.Date of Visit:Jun 10, 2021 Onc Med Follow-up/Prog Note Chief Complaint: Breast cancer. 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 She had presented with an abnormal yearly screening mammogram. That study, from 02/15/2019, was BI-RADS 0, incomplete. Findings included a new 7 mm nodular density in the lower inner quadrant of the left breast. Her additional mammographic views and left breast ultrasound on 03/17/2019 was BI-RADS 4B, suspicious. There was again noted to be a 6 mm lesion along the posterior nipple line of the inner lower quadrant left breast. By ultrasound the lesion measured 7.5 x 5.3 x 4.4 mm. It was noted to have a thick-walled rim and a hypoechoic center. Biopsy was recommended. Ultrasound-guided core needle biopsy on 04/14/2019 showed invasive ductal carcinoma with mucinous features, favoring grade 1/3. The tumor was noted to measure 7 mm in greatest dimension. The breast prognostic profile showed ER positive at 94% and CT positive at 93%. HER-2/brandee was negative by IHC (0) and by FISH, amplification ratio 1.1 with 2.8 HER-2 copies per cell. The Ki-67 was slightly elevated at 20%. She was referred to Dr. Holland in [place]. On 05/04/2019 she underwent left breast lumpectomy with axillary sentinel lymph node biopsy. Pathology on the lumpectomy showed residual invasive mucinous carcinoma measuring 9 mm in maximum diameter, grade 2. There was a minor component of DCIS, less than 1 mm. The margins were free. The closest margin to invasive carcinoma was the superior margin at 1.5 mm. There was DCIS within 4 mm of the inferior and medial margins. There was no involvement in 2 sentinel lymph nodes. I had seen her initially on 05/19/2019. Based on the clinical findings, I felt that it was unlikely that she would require adjuvant chemotherapy. However, as a precaution, I did request an Oncotype DX study. It showed a recurrence score of 3, corresponding to a 3% risk of distant recurrence at 9 years with adjuvant hormonal therapy. The predictive benefit of adjuvant chemotherapy was less than 1%. As such, adjuvant chemotherapy was not recommended. She then underwent radiation to the left breast. She completed treatment on 07/07/2019, total a dose 5256 cGy. She tolerated the treatment well. She began adjuvant hormonal therapy with anastrozole 1 mg daily on 08/11/2019. Her baseline bone density study on 09/21/2019 showed T score -2.5 in the lumbar spine, consistent with osteoporosis. She began treatment with Prolia in November 2019. She has been in very good general health. Her medical history is otherwise significant for GERD. She has had no other ongoing medical illnesses. She has a very minimal smoking history in the past. She had quit by her early 20s. She is seen for a follow-up visit. She has been feeling good generally. She has good energy and activity tolerance. ECOG score 0. Her appetite is good. She has no fever, night sweats, or hot flashes. She has not had sore mouth or throat. She does not complain of cough, and she has not been having shortness of breath or chest pain. Her acid reflux is adequately managed with Nexium. She has no other GI or complaints. She does have some joint pain, but it is tolerable. She does not complain of headache or dizziness, and she has no focal neurologic symptoms. Medications: Anastrozole 1 Tablet (of 1 mg) Oral daily, NexIUM 1 (20 mg) Capsule Delayed Release Oral daily, Tums 1 (500 mg) Tablet, chewable Oral PRN, Vitamin D3 1 Tablet (of 10 mcg ) Oral daily Allergies: No Known Allergies. Vital Signs: Performed on Jun 10, 2021 12:34 Height - 65.00 in Weight - 175.2 lbs (HIGH) BSA - 1.87 sq.m BMI - 29.15 Temperature - 98.0 F (LOW) Pulse - 76 /min Respiration - 16 /min BP - 147/70 mm(hg) (HIGH) O2 Sat - 96 % Pain - 0 Fatigue - 0 Physical Examination: Constitutional - She looks good generally, Eyes - Sclerae nonicteric. Conjunctivae clear, ENMT - No lesions noted in the oral cavity, Hematologic/Lymphatic - No cervical or clavicular adenopathy, Respiratory - Lungs are clear with good air movement bilaterally, Cardiovascular - Heart rhythm is regular. There is a II/ systolic murmur. There is no gallop or rub noted, Breasts - There are no breast masses noted. There is no axillary adenopathy noted, Abdomen - Soft. Liver and spleen are not enlarged. There is no abdominal mass or ascites noted and there is no inguinal adenopathy, Extremities - No edema, Neurologic - No focal neurologic deficits noted. Lab/Imaging: Test performed on Jun 10, 2021 11:16 Sodium 140 mmol/L Vitamin D (25-Hydroxy), Total 31 ng/mL Potassium 4.0 mmol/L Chloride 102 mmol/L CO2 26 mmol/L Anion Gap 16.0 BUN 15 mg/dL Creatinine 0.7 mg/dL Cr Clearance (Est) 93.82 mL/min eGFR 82.7 mL/min Glucose 91 mg/dL Osmolality - Calculated 290 mOsm/kg Calcium 9.8 mg/dL Protein, Total 6.9 g/dL Albumin 4.3 g/dL Globulin 2.6 g/dL Bilirubin, Total 0.3 mg/dL ALT (SGPT) 14 U/L AST (SGOT) 13 U/L Alkaline Phosphatase 87 IU/L WBC 6.7 10 3/uL RBC 4.60 10 6/uL HGB 13.7 g/dL HCT 41.8 % MCV 90.9 fl MCH 29.8 pg MCHC 32.8 g/dL RDW 12.6 % Platelet Count 294 10 3/cmm MPV 9.4 fL Neutrophils 4.01 10 3/uL Lymphocytes 1.9 10 3/uL Monocytes 0.5 10 3/uL Eosinophils 0.3 10 3/uL Basophils 0.1 10 3/uL Neutrophil % 59.7 % Lymphocyte % 27.9 % Monocyte % 6.7 % Eosinophil % 4.6 % Basophils % 1.0 % NRBC % 0 % Problem List: 1. Grade 2 invasive mucinous carcinoma of the left breast, stage IA (pT1b, pN0, M0), ER/CT positive and HER-2/brandee negative. Her Oncotype DX was low risk, recurrence score 3. 2. GERD. 3. Osteoporosis with T score -2.5 in the lumbar spine on her baseline Dexa scan in September 2019. 4. She was found to have vitamin D deficiency. 5. She has a positive family history for breast cancer, including a sister and a maternal aunt. On her her genetic screening she was found to be heterozygous for a mutation involving the HERB gene. Problems Addressed with this Encounter and Plan: 1. 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 Her Oncotype DX was low risk, recurrence score 3. She underwent left breast lumpectomy with axillary sentinel lymph node biopsy on 05/04/2019. Pathology showed uninvolved surgical margins. She underwent radiation to the left breast, completed on 07/07/2019 to a total dose of 5256 cGy. She began adjuvant hormonal therapy with anastrozole 1 mg daily on 08/11/2019. During follow-up she has tolerated it with no significant adverse effects. Overall, she has been doing well clinically. She has been tolerating her the anastrozole with no significant adverse effects, and thus far there has been no evidence of recurrence of the breast cancer. She continues adjuvant hormonal therapy with anastrozole 1 mg daily. She will be scheduled for a follow-up visit in 6 months. 2. She has osteoporosis with T score -2.5 in the lumbar spine on her baseline DEXA scan in September 2019. She also was found to have vitamin D deficiency. She began vitamin D supplementation and she started treatment with Prolia in November 2019. She tolerated the initial injection with no adverse effects. She will continue the Prolia 60 mg by subcutaneous injection every 6 months and she continues her vitamin D supplement. Signed By: El Cyr M.D. <<Signature on File>>
== END 2021-06-10 10:55 | disposition home or self-care (01) ==
PROVIDERS: PCP Family Medicine; Visit Provider Internal Medicine Medical Oncology
DX: M81.0 Age-related osteoporosis without current pathological fracture (principal); C50.812 Malignant neoplasm of overlapping sites of left female breast; K21.9 Gastro-esophageal reflux disease without esophagitis; E55.9 Vitamin D deficiency, unspecified; Z79.899 Other long term (current) drug therapy; Z92.21 Personal history of antineoplastic chemotherapy; Z80.3 Family history of malignant neoplasm of breast
CPT/HCPCS: 36415; 80053; 82306; 85025; 96372; 99214; J0897

== ENCOUNTER 2021-12-09 15:06 | Outpatient (CLI) | payer MEDICARE, OTHER, SELFPAY ==
--- NOTE | 2021-12-09 15:00 | XR_ITS ---
WS: [id number] DEXA (DUAL ENERGY X-RAY ABSORPTIOMETRY) Bone mineral density was performed using a [employer] machine. HISTORY: breast cancer ERPR positive COMPARISON: 09/21/2019 Lumbar spine BMD (L1-L4): 0.996 g/cm2 T score: -1.5 Z score: -0.3 Total hip BMD: Left: 1.000 g/cm2. T score: -0.1 Z score: 1.1 Right: 0.995 g/cm2. T score: -0.1 Z score: 1.1 10 year probability of a major osteoporotic fracture is 8.4%. Compared to the prior study from 09/21/2019. Lumbar spine bone mineral density has increased by 13.4%. Bilateral hips bone mineral density has increased by 3.7%. XR/XR DEXA axial skeleton* [id number] IMPRESSION: OSTEOPENIA based upon the WHO classification for females. Significant increase in bone mineral density within the lumbar spine and since the prior study.
== END 2021-12-09 15:07 | disposition home or self-care (01) ==
LOC: RAD 15:07
PROVIDERS: PCP Family Medicine; Visit Provider Internal Medicine Medical Oncology
DX: C50.912 Malignant neoplasm of unspecified site of left female breast (principal); E28.39 Other primary ovarian failure; M85.80 Other specified disorders of bone density and structure, unspecified site
CPT/HCPCS: 77080

== ENCOUNTER 2021-12-10 10:08 | Oncology outpatient (recurring) (ONCR) | payer MEDICARE, OTHER, SELFPAY ==
[2021-12-10] MEDS: denosumab 60 mg SDV SUBCUT (12:12)
== END 2021-12-19 23:59 | disposition home or self-care (01) ==
PROVIDERS: PCP Family Medicine; Visit Provider Internal Medicine Medical Oncology
DX: C50.812 Malignant neoplasm of overlapping sites of left female breast (principal); Z17.0 Estrogen receptor positive status [ER+]; M81.0 Age-related osteoporosis without current pathological fracture; Z79.818 Long term (current) use of other agents affecting estrogen receptors and estrogen levels; Z79.899 Other long term (current) drug therapy; Z92.21 Personal history of antineoplastic chemotherapy; Z92.3 Personal history of irradiation; Z87.891 Personal history of nicotine dependence
CPT/HCPCS: 96372; 99214; J0897

== ENCOUNTER 2022-05-07 10:30 | Outpatient (CLI) | payer OTHER, MEDICARE, SELFPAY ==
--- NOTE | 2022-05-07 10:47 | MM_ITS ---
WS: [email or web address] BILATERAL 3D TOMOSYNTHESIS DIGITAL DIAGNOSTIC MAMMOGRAPHY WITH CAD CLINICAL INFORMATION: HX OF BREAST CA HISTORY: LEFT breast lumpectomy. COMPARISON: April 21, 2021 TECHNIQUE: Bilateral CC, MLO, and ML views. FINDINGS: Scattered fibroglandular densities bilaterally. Postoperative changes LEFT breast lumpectomy with anderson gical clips. Surgical clip LEFT axilla. Nodularity upper outer RIGHT breast is unchanged since 2020. No suspicious focal mass, asymmetry, calcifications, or architectural distortion. No evidence of cale gnancy. MM/[place] [id number] IMPRESSION: BI-RADS: 2-Benign FOLLOW UP: 1 Year Follow-up Recommend return to annual diagnostic mammography.
== END 2022-05-07 10:31 | disposition home or self-care (01) ==
PROVIDERS: PCP Family Medicine; Visit Provider Internal Medicine Medical Oncology
DX: Z85.3 Personal history of malignant neoplasm of breast (principal)
CPT/HCPCS: 77062; G0279

== ENCOUNTER 2022-06-11 11:18 | Oncology outpatient (recurring) (ONCR) | payer MEDICARE, SELFPAY ==
[2022-06-11 11:52] LABS: Basophils # 0.1 10^3/uL (0.0-0.1); Basophils % 0.8 %; Eosinophils # 0.3 10^3/uL (0.0-0.8); Eosinophils % 4.5 %; Hematocrit 40.5 % (37.0-47.0); Hemoglobin 12.9 g/dL (11.5-15.3); Lymphocytes % 32.5 %; Mean Corpuscular HGB Conc 31.9 g/dL (30.0-36.0); Mean Corpuscular Hemoglobin 29.4 pg (28.0-34.0); Mean Corpuscular Volume 92.3 fl (81-99); Mean Platelet Volume 9.4 fL (7.4-10.4); Monocytes # 0.4 10^3/uL (0.2-0.9); Neutrophils # 3.45 10^3/uL (1.8-7.7); Nucleated Red Blood Cells % 0 %; Platelet Count 273 10^3/cmm (130-400); Red Blood Count 4.39 10^6/uL (4.1-5.3); Red Cell Distribution Width 12.3 % (12.1-15.1); White Blood Count 6.3 10^3/uL (4.0-10.0)
[2022-06-11 12:36] LABS: 25 Hydroxy Vitamin D 35 ng/mL (30-100); Alanine Aminotransferase 11 U/L (0-33); Albumin Level 4.1 g/dL (3.5-5.2); Alkaline Phosphatase 67 U/L (35-105); Aspartate Amino Transferase 14 U/L (0-32); Blood Urea Nitrogen 18 mg/dL (8-23); Calcium 8.8 mg/dL (8.5-10.5); Carbon Dioxide 24 mmol/L (22-29); Chloride 105 mmol/L (98-107); Globulin 2.6 g/dL (1.3-4.6); Glucose 82 mg/dL (65-115); Osmolality Calculated 289 mOsm/kg (285-295); Sodium 139 mmol/L (136-145); Total Bilirubin 0.4 mg/dL (0.15-1.2); Total Protein 6.7 g/dL (6.6-8.7)
[2022-06-11] MEDS: denosumab 60 mg SDV SUBCUT (13:56)
== END 2022-06-19 23:59 | disposition home or self-care (01) ==
PROVIDERS: Nurse Practitioner Family; PCP Family Medicine; Visit Provider Internal Medicine Medical Oncology
DX: C50.812 Malignant neoplasm of overlapping sites of left female breast (principal); Z17.0 Estrogen receptor positive status [ER+]; M81.0 Age-related osteoporosis without current pathological fracture; Z79.818 Long term (current) use of other agents affecting estrogen receptors and estrogen levels; Z79.899 Other long term (current) drug therapy; Z92.21 Personal history of antineoplastic chemotherapy; Z92.3 Personal history of irradiation; Z87.891 Personal history of nicotine dependence
CPT/HCPCS: 80053; 82306; 85025; 96372; 99214; J0897

== ENCOUNTER 2022-12-15 11:45 | Oncology outpatient (recurring) (ONCR) | payer MEDICARE, SELFPAY ==
[2022-12-15 11:51] VITALS: BP 136/77; PULSE 67; RESP 16; TEMP 36.7; O2SAT 98
[2022-12-15 12:08] LABS: Basophils # 0.1 10^3/uL (0.0-0.1); Basophils % 1.1 %; Eosinophils # 0.2 10^3/uL (0.0-0.8); Eosinophils % 2.7 %; Hematocrit 42.1 % (36-47); Lymphocytes # 2.6 10^3/uL (0.8-4.8); Lymphocytes % 45.4 %; Mean Corpuscular HGB Conc 31.6 g/dL (30-55); Mean Corpuscular Hemoglobin 26.9 pg (27-33); Mean Corpuscular Volume 85.2 fl (85-98); Mean Platelet Volume 8.8 fL (7.4-10.4); Monocytes # 0.5 10^3/uL (0.2-0.9); Neutrophils # 2.42 10^3/uL (1.8-7.7); Neutrophils % 42.6 %; Nucleated Red Blood Cells % 0 %; Platelet Count 292 10^3/cmm (157-399); Red Blood Count 4.94 10^6/uL (3.85-5.65); White Blood Count 5.66 10^3/uL (3.29-11.43)
[2022-12-15 12:22] LABS: Alanine Aminotransferase 14 U/L (0-33); Albumin Level 4.2 g/dL (3.5-5.2); Alkaline Phosphatase 102 U/L (35-105); Anion Gap 14.2 (5-19); Aspartate Amino Transferase 17 U/L (0-32); Blood Urea Nitrogen 14 mg/dL (8-23); Calcium 9.2 mg/dL (8.5-10.5); Carbon Dioxide 27 mmol/L (22-29); Chloride 103 mmol/L (98-107); Glucose 84 mg/dL (65-115); Osmolality Calculated 290 mOsm/kg (285-295); Potassium 4.2 mmol/L (3.5-5.1); Sodium 140 mmol/L (136-145); Total Bilirubin 0.2 mg/dL (0.15-1.2); Total Protein 7.2 g/dL (6.6-8.7)
[2022-12-15] MEDS: denosumab 60 mg SDV SUBCUT (13:52)
[2022-12-15 13:55] VITALS: BP 127/78; PULSE 74; RESP 18; TEMP 36.9; O2SAT 98
== END 2022-12-19 23:59 | disposition home or self-care (01) ==
PROVIDERS: Nurse Practitioner Family; PCP Family Medicine; Visit Provider Internal Medicine Medical Oncology
DX: Z17.0 Estrogen receptor positive status [ER+]; M81.0 Age-related osteoporosis without current pathological fracture; C50.312 Malignant neoplasm of lower-inner quadrant of left female breast; E55.9 Vitamin D deficiency, unspecified
CPT/HCPCS: 36415; 80053; 85025; 96372; 96401; 99213; J0897

== ENCOUNTER 2023-05-20 09:14 | Outpatient (CLI) | payer MEDICARE, SELFPAY ==
--- NOTE | 2023-05-20 09:21 | MM_ITS ---
WS: [id number] DIAGNOSTIC BILATERAL DIGITAL BREAST TOMOSYNTHESIS MAMMOGRAPHY WITH CAD HISTORY: history of breast cancer COMPARISON: 05/07/2022, 04/21/2021, 04/16/2020, 10/31/2019 and 02/15/2019 TECHNIQUE: Bilateral craniocaudad, mediolateral oblique, and mediolateral views are submitted with to mosbillie and MADHAV. Computer aided detection utilized. Breast composition: There are scattered areas of fibroglandular density. Post biopsy and radiation th erapy changes noted in the LEFT breast at the site of the lumpectomy. Coalescence of the markers at t he lumpectomy site. There has been no adverse change in appearance of the lumpectomy site. No new mas s is identified. There is mild trabecular thickening throughout the LEFT breast from prior radiation therapy treatment. RIGHT breast is negative. Additional biopsy clip in the LEFT axilla. IMPRESSION: MM/[place] [id number] BI-RADS: 2-Benign FOLLOW UP: 1 Year Follow-up
== END 2023-05-20 09:15 | disposition home or self-care (01) ==
LOC: RAD 09:15
PROVIDERS: PCP Family Medicine; Visit Provider Internal Medicine Medical Oncology
DX: C50.312 Malignant neoplasm of lower-inner quadrant of left female breast (principal)
CPT/HCPCS: 77062; G0279

== ENCOUNTER 2023-06-17 12:52 | Oncology outpatient (recurring) (ONCR) | payer MEDICARE, SELFPAY ==
[2023-06-17 13:13] LABS: Basophils # 0.1 10^3/uL (0.0-0.1); Basophils % 1.3 %; Eosinophils # 0.2 10^3/uL (0.0-0.8); Eosinophils % 3.3 %; Hematocrit 44.5 % (36-47); Lymphocytes # 2.6 10^3/uL (0.8-4.8); Lymphocytes % 39.2 %; Mean Corpuscular HGB Conc 31.7 g/dL (30-55); Mean Corpuscular Hemoglobin 28.8 pg (27-33); Mean Corpuscular Volume 90.8 fl (85-98); Mean Platelet Volume 9.2 fL (7.4-10.4); Monocytes # 0.4 10^3/uL (0.2-0.9); Monocytes % 6.2 %; Neutrophils # 3.36 10^3/uL (1.8-7.7); Neutrophils % 49.9 %; Nucleated Red Blood Cells % 0 %; Platelet Count 293 10^3/cmm (157-399); Red Cell Distribution Width 13.4 % (12.1-15.1); White Blood Count 6.74 10^3/uL (3.29-11.43)
[2023-06-17 13:29] LABS: Alanine Aminotransferase 14 U/L (0-33); Albumin Level 4.1 g/dL (3.5-5.2); Alkaline Phosphatase 102 U/L (35-105); Anion Gap 14.1 (5-19); Aspartate Amino Transferase 16 U/L (0-32); Blood Urea Nitrogen 15 mg/dL (8-23); Calcium 9.3 mg/dL (8.5-10.5); Carbon Dioxide 26 mmol/L (22-29); Chloride 105 mmol/L (98-107); Globulin 3.2 g/dL (1.3-4.6); Glucose 92 mg/dL (65-115); Osmolality Calculated 292 mOsm/kg (285-295); Potassium 4.1 mmol/L (3.5-5.1); Sodium 141 mmol/L (136-145); Total Bilirubin 0.3 mg/dL (0.15-1.2); Total Protein 7.3 g/dL (6.6-8.7)
== END 2023-06-20 23:59 | disposition home or self-care (01) ==
PROVIDERS: Nurse Practitioner Family; PCP Family Medicine; Visit Provider Internal Medicine Medical Oncology
DX: C50.312 Malignant neoplasm of lower-inner quadrant of left female breast; M85.80 Other specified disorders of bone density and structure, unspecified site
CPT/HCPCS: 36415; 80053; 85025

== ENCOUNTER 2023-06-23 13:39 | Oncology outpatient (recurring) (ONCR) | payer MEDICARE, SELFPAY ==
[2023-06-23] MEDS: denosumab 60 mg SDV SUBCUT (14:29)
== END 2023-07-20 23:59 | disposition home or self-care (01) ==
PROVIDERS: PCP Family Medicine; Visit Provider Internal Medicine Medical Oncology
DX: C50.812 Malignant neoplasm of overlapping sites of left female breast (principal); Z17.0 Estrogen receptor positive status [ER+]; M81.0 Age-related osteoporosis without current pathological fracture; Z79.818 Long term (current) use of other agents affecting estrogen receptors and estrogen levels; Z79.899 Other long term (current) drug therapy; Z92.21 Personal history of antineoplastic chemotherapy; Z92.3 Personal history of irradiation; Z87.891 Personal history of nicotine dependence; C50.312 Malignant neoplasm of lower-inner quadrant of left female breast
CPT/HCPCS: 96401; 99214; J0897

== ENCOUNTER 2023-12-13 13:09 | Oncology outpatient (recurring) (ONCR) | payer MEDICARE, SELFPAY ==
--- NOTE | 2023-12-13 13:30 | XR_ITS ---
WS: [email or web address] DEXA (DUAL ENERGY X-RAY ABSORPTIOMETRY) Bone mineral density was performed using a [employer] machine. HISTORY: history of osteoporosis COMPARISON: 12/09/2021 Lumbar spine BMD (L1-L4): 1.033 g/cm2 T score: -1.2 Z score: 0.1 Total hip BMD: Left: 1.011 g/cm2. T score: 0.0 Z score: 1.4 Right: 1.013 g/cm2. T score: 0.0 Z score: 1.4 10 year probability of a major osteoporotic fracture is 8.9%. Compared to the prior study from 12/09/2021. Lumbar spine bone mineral density has increased by 3.7%. Bilateral hips bone mineral density has increased by 1.5%. XR/XR DEXA axial skeleton* [id number] IMPRESSION: OSTEOPENIA based upon the WHO classification for females. Significant increase in bone mineral density within the lumbar spine since the prior study. No significant increase in bone mineral density within the hips since the prior study.
== END 2023-12-20 23:59 | disposition home or self-care (01) ==
LOC: RAD 13:09 → ONCMED 12-16 09:36
PROVIDERS: PCP Family Medicine; Visit Provider Nurse Practitioner Family
DX: M81.0 Age-related osteoporosis without current pathological fracture; M85.9 Disorder of bone density and structure, unspecified
CPT/HCPCS: 77080

== ENCOUNTER 2023-12-31 10:10 | Outpatient (CLI) | payer MEDICARE, SELFPAY ==
--- NOTE | 2023-12-31 10:30 | CT_ITS ---
WS: [email or web address] CT CHEST, ABDOMEN, AND PELVIS TECHNIQUE: Contrast-enhanced CT of the chest, abdomen, and pelvis with coronal and sagittal reformatt ed images. CLINICAL INFORMATION: Abnormal chest X-ray COMPARISON: Chest radiograph 12/30/2023 DLP: 774.[address] scans at [facility] use at least one of these dose optimization techniques: automated e xposure control; mA and/or kV adjustment per patient size (includes targeted exams where dose is matc hed to clinical indication); or iterative reconstruction. CT CHEST: Innumerable metastatic pulmonary nodules throughout both lungs. This corresponds to the recent radiog raph findings. Small LEFT pleural effusion. Dominant LEFT upper lobe nodule near the LEFT lung apex m easuring 3.1 x 2.1 cm. Tree-in-bud type opacities in the RIGHT upper lobe posteriorly. No focal consolidation. Normal calibe r thoracic aorta. Aortic calcification. Proximal main pulmonary arteries appear normal. Enlarged ante rior mediastinal lymph nodes. RIGHT hilar lymphadenopathy. Mild thoracic curve. Surgical clips LEFT a xilla. Postoperative changes LEFT breast. CT ABDOMEN AND PELVIS: Mild diffuse fatty infiltration of the liver. Tiny low-attenuation lesion in the RIGHT hepatic lobe m easuring 10 mm too small to characterize but suspicious for metastatic disease. Normal portal vein an d splenic vein. Normal spleen. Large esophageal hiatal hernia. Hydropic fluid distended gallbladder. No gallbladder wall thickening or pericholecystic fluid. Adrenal glands are normal. Normal renal pare nchymal enhancement. No hydronephrosis. Small bilateral renal cysts. Normal caliber abdominal aorta. Aortic calcification. Small fat-containing umbilical hernia. Nodular lesions in the ventral abdominal mesentery in the midline and eccentric to the LEFT suspiciou s for peritoneal carcinomatosis. No significant periaortic or retroperitoneal lymphadenopathy. No pel og or inguinal lymphadenopathy. Sigmoid diverticulosis. CT/CT chest abdpel w/*[id number] IMPRESSION: 1. Innumerable metastatic nodules throughout both lungs. 2. Dominant nodule LEFT upper lobe measuring 3.1 x 2.1 cm. 3. Small LEFT pleural effusion. 4. Anteromediastinal and RIGHT hilar lymphadenopathy. 5. Nodular soft tissue implants in the ventral abdominal mesentery most compat ible with peritoneal carcinomatosis. 6. Tiny low-attenuation lesion in the RIGHT hepatic lobe too small to characte rimarlen but considering other findings suspicious for metastatic disease. 7. Large esophageal hiatal hernia.
[2023-12-31] MEDS: iohexol 350 mg/mL 500 mL Btl (per mL) PO (10:52)
[2023-12-31] MEDS: iohexol 350 mg/mL 500 mL Btl (per mL) IV (10:52)
== END 2023-12-31 10:11 | disposition home or self-care (01) ==
LOC: RAD 10:10
PROVIDERS: PCP Family Medicine; Visit Provider Internal Medicine Hematology & Oncology
DX: C50.312 Malignant neoplasm of lower-inner quadrant of left female breast (principal); R91.8 Other nonspecific abnormal finding of lung field; Z17.0 Estrogen receptor positive status [ER+]; R59.0 Localized enlarged lymph nodes; R93.89 Abnormal findings on diagnostic imaging of other specified body structures; K76.89 Other specified diseases of liver; K44.9 Diaphragmatic hernia without obstruction or gangrene; R05.3 Chronic cough
CPT/HCPCS: 71260; 74177

== ENCOUNTER 2024-01-06 13:48 | Oncology outpatient (recurring) (ONCR) | payer MEDICARE, SELFPAY ==
[2023-12-30 13:03] LABS: Basophils # 0.1 10^3/uL (0.0-0.1); Basophils % 0.9 %; Eosinophils # 0.1 10^3/uL (0.0-0.8); Eosinophils % 2.4 %; Hematocrit 42.8 % (36-47); Lymphocytes # 1.4 10^3/uL (0.8-4.8); Lymphocytes % 26.2 %; Mean Corpuscular HGB Conc 31.1 g/dL (30-55); Mean Corpuscular Hemoglobin 27.9 pg (27-33); Mean Corpuscular Volume 89.9 fl (85-98); Mean Platelet Volume 9.4 fL (7.4-10.4); Monocytes # 0.4 10^3/uL (0.2-0.9); Monocytes % 6.8 %; Neutrophils # 3.46 10^3/uL (1.8-7.7); Neutrophils % 63.5 %; Nucleated Red Blood Cells % 0 %; Platelet Count 312 10^3/cmm (157-399); Red Blood Count 4.76 10^6/uL (3.85-5.65); White Blood Count 5.45 10^3/uL (3.29-11.43)
[2023-12-30 13:27] LABS: Alanine Aminotransferase 19 U/L (0-33); Albumin Level 3.6 g/dL (3.5-5.2); Alkaline Phosphatase 110 U/L (35-105); Aspartate Amino Transferase 22 U/L (0-32); Blood Urea Nitrogen 11 mg/dL (8-23); Calcium 8.6 mg/dL (8.5-10.5); Carbon Dioxide 24 mmol/L (22-29); Chloride 104 mmol/L (98-107); Creatinine Clr Calc Pharmacy 63.9958; Globulin 3.3 g/dL (1.3-4.6); Glucose 136 mg/dL (65-115); Osmolality Calculated 287 mOsm/kg (285-295); Sodium 138 mmol/L (136-145); Total Bilirubin 0.3 mg/dL (0.15-1.2); Total Protein 6.9 g/dL (6.6-8.7)
[2023-12-30 13:29] LABS: Anion Gap 13.9 (5-19); Potassium 3.9 mmol/L (3.5-5.1)
[2023-12-30] MEDS: denosumab 60 mg SDV SUBCUT (15:13)
== END 2024-01-20 23:59 | disposition home or self-care (01) ==
PROVIDERS: Internal Medicine Hematology & Oncology; PCP Family Medicine; Visit Provider Nurse Practitioner Family
DX: C50.312 Malignant neoplasm of lower-inner quadrant of left female breast (principal); Z17.0 Estrogen receptor positive status [ER+]; M81.0 Age-related osteoporosis without current pathological fracture; M85.80 Other specified disorders of bone density and structure, unspecified site; R91.8 Other nonspecific abnormal finding of lung field; Z79.811 Long term (current) use of aromatase inhibitors; Z92.3 Personal history of irradiation; Z79.891 Long term (current) use of opiate analgesic
CPT/HCPCS: 36415; 71046; 80053; 85025; 96372; 99214; J0897

== ENCOUNTER 2024-02-04 14:39 | Outpatient (CLI) | payer MEDICARE, SELFPAY ==
--- NOTE | 2024-02-04 16:06 | PETR_ITS ---
PROCEDURE INFORMATION: Exam: PET/CT Skull Base to Mid-thigh Exam date and time: 02/04/2024 3:46 PM Age: 73 years old Clinical indication: Pain; Pain: Malignant neoplasm of lung jeff LABS AND CLINICAL REPORTS: Glucose: 96 mg/dl Treatment strategy for malignancy (PET staging): Initial Staging (PI) TECHNIQUE: Imaging protocol: Following at least four-hour fasting and following the injection of radiopharmaceutical, low dose CT images were obtained. Then, PET images were obtained. Attenuation corrected images were constructed using the CT scan. Fused images of PET and CT were reviewed. The standardized uptake values (SUV) reported below are maximum values within a region of interest, expressed in gm/ml. Exam includes orbital meatal line to mid-thigh. Radiopharmaceutical: 11.51 mCi F-18 FDG (Fluorodeoxyglucose), IV. Time of imaging post radiopharmaceutical administration: 1 hour Injection site: RIGHT WRIST COMPARISON: CT chest abd pel 12/31/2023 FINDINGS: Brain: Normal physiologic uptake. Pharynx: No abnormal uptake. Larynx: No abnormal uptake. Lungs, pleura and trachea: 3.5 x 2.5 cm left upper lobe mass with maximum uptake of 16.8 SUV is compatible with primary malignancy. Innumerable bilateral lung nodules with the highest uptake of 17.4 SUV are compatible with metastases. Individual lung metastases measure up to 1.5 cm with larger elongated confluent lesions in the lower lobes particularly on the right side. There is mild left pleural effusion. No right pleural effusion. Heart: Unremarkable. There is no cardiomegaly. Mild coronary artery calcification is present. There is no pericardial effusion. Mediastinal space: No abnormal uptake. Moderate size hiatal hernia. Liver: About 1 cm subcapsular focus in the right lobe between segments 5 and 6 measures 16.4 SUV compatible with metastasis. Maximum uptake within normal liver parenchyma is 3.5 SUV. Gallbladder and biliary ducts: No abnormal uptake. No calcified gallstones. pancreas: No abnormal uptake. Spleen: No abnormal uptake. No splenomegaly. Punctate calcified granulomas. adrenal glands: No abnormal uptake. No nodules. Kidneys and ureters: Normal physiologic uptake. No hydronephrosis. Stomach and bowel: No abnormal uptake. Mild diverticulosis of the sigmoid colon. Intraperitoneal and retroperitoneal spaces: Multiple omental metastasis confluent into the omental cake with maximal thickness of 2 cm with the highest uptake of 17.9 SUV. No ascites. Bladder: Normal physiologic uptake. Reproductive: No abnormal uptake. Vasculature: No abnormal uptake. No aortic aneurysm. Lymph nodes: There is abnormal intense uptake within multiple normal size lymph nodes suggestive of malignancy including a couple of left supraclavicular lymph nodes with uptake of 15 SUV, a few left axillary lymph nodes with uptake of 12.6 SUV, and multiple mediastinal lymph node with the highest uptake of 12 SUV within right paratracheal lymph nodes, 12 SUV in the right hilum, 8.8 SUV in the aortopulmonary window lymph node,, 8.6 SUV in the subcarinal lymph node. A few subcentimeter retroperitoneal lymph nodes in the left para-aortic location between L2 and L5 levels measure up to 10.8 SUV. No FDG avid lymphadenopathy in the pelvis, and extremities. Skeleton: No abnormal uptake in the visualized axial and appendicular skeleton. Soft tissues: No abnormal uptake in the visualized head, neck, chest, abdomen, pelvis, and extremities. There are surgical clips in the left axilla. A couple of coarse calcifications in the medial aspect of the left breast possibly representing postsurgical findings for correlation with patient's history. PET/PET skull to thigh INIT [id number] IMPRESSION: There is disseminated malignancy with dominant 3.5 cm left upper lobe mass suggestive of primary malignancy, innumerable bilateral lung metastases, multiple omental metastases with omental cake and no ascites, a single small metastasis in the right lobe of the liver, small volume metastatic lymphadenopathy in the left supraclavicular area, left axilla, mediastinum and the retroperitoneum. There is mild nonspecific left pleural effusion without abnormal uptake in the pleura.
== END 2024-02-04 14:40 | disposition home or self-care (01) ==
PROVIDERS: PCP Family Medicine; Visit Provider Internal Medicine Gastroenterology
DX: C34.92 Malignant neoplasm of unspecified part of left bronchus or lung (principal); C34.12 Malignant neoplasm of upper lobe, left bronchus or lung; K44.9 Diaphragmatic hernia without obstruction or gangrene; R16.0 Hepatomegaly, not elsewhere classified; D73.89 Other diseases of spleen; C78.6 Secondary malignant neoplasm of retroperitoneum and peritoneum; R93.89 Abnormal findings on diagnostic imaging of other specified body structures
CPT/HCPCS: 78815; A9552

== ENCOUNTER 2024-02-16 12:45 | Oncology outpatient (recurring) (ONCR) | payer MEDICARE, SELFPAY ==
--- NOTE | 2024-01-31 08:45 | MR_ITS ---
WS: [email or web address] MRI HEAD WITH CONTRAST TECHNIQUE: Sagittal T1, T2 axial, T2 axial FLAIR, axial susceptibility weighted imaging, axial diffus ion weighted images, and coronal T2 images were obtained. Pre and post-T1 axial and post T1 coronal i mages. ADC and FSPGR images. CLINICAL INFORMATION: Evaluate for brain lesions COMPARISON: None. FINDINGS: No evidence of restricted diffusion to suggest acute ischemia. Ventricular system and basal cisterns are patent. Mild small vessel changes. Moderate parenchymal volume loss worse in the parietal lobes. No hemosiderin on susceptibility-weighted images. Normal optic chiasm and pituitary infundibulum. Tem poral lobes and hippocampal formations are normal in appearance. Tiny chronic lacunar infarct RIGHT c erebellum. No abnormal gadolinium enhancement. No evidence of enhancing intracranial metastatic disease. Dural v enous sinuses appear normal. No other acute findings. MR/MR head wo/w con [id number] IMPRESSION: 1. No evidence of enhancing intracranial metastatic disease. 2. No evidence of restricted diffusion to suggest acute ischemia. 3. Mild small vessel changes with moderate parenchymal volume loss worse in th e parietal lobes. 4. Small amount of fluid in the maxillary sinuses. Mastoid air cells well aera tahira. 5. No other acute findings.
[2024-01-31] MEDS: gadobenate dimeglumine 20 mL vial IV (09:01)
[2024-02-03 13:32] LABS: Basophils # 0.1 10^3/uL (0.0-0.1); Basophils % 1.2 %; Eosinophils # 0.1 10^3/uL (0.0-0.8); Eosinophils % 2.2 %; Hematocrit 42.3 % (36-47); Lymphocytes # 1.6 10^3/uL (0.8-4.8); Lymphocytes % 31.3 %; Mean Corpuscular HGB Conc 31.7 g/dL (30-55); Mean Corpuscular Hemoglobin 27.9 pg (27-33); Mean Corpuscular Volume 88.1 fl (85-98); Monocytes # 0.4 10^3/uL (0.2-0.9); Monocytes % 8.1 %; Neutrophils # 2.87 10^3/uL (1.8-7.7); Neutrophils % 56.8 %; Nucleated Red Blood Cells % 0 %; Platelet Count 302 10^3/cmm (157-399); Red Cell Distribution Width 13.2 % (12.1-15.1); White Blood Count 5.05 10^3/uL (3.29-11.43)
[2024-02-03 13:58] LABS: Alanine Aminotransferase 15 U/L (0-33); Albumin Level 3.6 g/dL (3.5-5.2); Alkaline Phosphatase 102 U/L (35-105); Aspartate Amino Transferase 20 U/L (0-32); Blood Urea Nitrogen 12 mg/dL (8-23); Calcium 8.3 mg/dL (8.5-10.5); Carbon Dioxide 24 mmol/L (22-29); Chloride 104 mmol/L (98-107); Glucose 95 mg/dL (65-115); Osmolality Calculated 286 mOsm/kg (285-295); Sodium 138 mmol/L (136-145); Total Bilirubin 0.3 mg/dL (0.15-1.2); Total Protein 6.6 g/dL (6.6-8.7)
[2024-02-03 14:03] LABS: Anion Gap 14.2 (5-19); Lactate Dehydrogenase 339 U/L (135-214); Potassium 4.2 mmol/L (3.5-5.1)
[2024-02-16 13:13] LABS: Basophils % 0.6 %; Eosinophils # 0.1 10^3/uL (0.0-0.8); Eosinophils % 2.9 %; Hematocrit 42.9 % (36-47); Lymphocytes # 1.3 10^3/uL (0.8-4.8); Lymphocytes % 27.6 %; Mean Corpuscular HGB Conc 31.2 g/dL (30-55); Mean Corpuscular Hemoglobin 27.6 pg (27-33); Mean Corpuscular Volume 88.5 fl (85-98); Mean Platelet Volume 9.3 fL (7.4-10.4); Monocytes # 0.4 10^3/uL (0.2-0.9); Monocytes % 7.5 %; Neutrophils # 2.95 10^3/uL (1.8-7.7); Neutrophils % 61.2 %; Nucleated Red Blood Cells % 0 %; Platelet Count 325 10^3/cmm (157-399); Red Blood Count 4.85 10^6/uL (3.85-5.65); Red Cell Distribution Width 13.4 % (12.1-15.1); White Blood Count 4.82 10^3/uL (3.29-11.43)
[2024-02-16 13:25] LABS: Alanine Aminotransferase 13 U/L (0-33); Albumin Level 3.6 g/dL (3.5-5.2); Alkaline Phosphatase 98 U/L (35-105); Anion Gap 16.1 (5-19); Aspartate Amino Transferase 20 U/L (0-32); Blood Urea Nitrogen 19 mg/dL (8-23); Calcium 8.9 mg/dL (8.5-10.5); Carbon Dioxide 24 mmol/L (22-29); Chloride 103 mmol/L (98-107); Globulin 3.4 g/dL (1.3-4.6); Glucose 125 mg/dL (65-115); Lactate Dehydrogenase 345 U/L (135-214); Osmolality Calculated 292 mOsm/kg (285-295); Potassium 4.1 mmol/L (3.5-5.1); Sodium 139 mmol/L (136-145); Total Bilirubin 0.4 mg/dL (0.15-1.2)
[2024-02-16 14:19] LABS: CA 15-3 43.9 U/mL (0-25)
== END 2024-02-19 23:59 | disposition home or self-care (01) ==
PROVIDERS: Internal Medicine; PCP Family Medicine; Visit Provider Internal Medicine Hematology & Oncology
DX: C50.312 Malignant neoplasm of lower-inner quadrant of left female breast (principal); Z53.9 Procedure and treatment not carried out, unspecified reason; C34.92 Malignant neoplasm of unspecified part of left bronchus or lung; M85.80 Other specified disorders of bone density and structure, unspecified site; R05.3 Chronic cough; Z17.0 Estrogen receptor positive status [ER+]
CPT/HCPCS: 36415; 70553; 80053; 83615; 85025; 86300; 99214

== ENCOUNTER 2024-03-20 10:00 | Oncology outpatient (recurring) (ONCR) | payer MEDICARE, SELFPAY ==
[2024-02-22 11:40] LABS: Basophils % 0.3 %; Hematocrit 43.3 % (36-47); Lymphocytes # 0.5 10^3/uL (0.8-4.8); Lymphocytes % 5.7 %; Mean Corpuscular HGB Conc 31.4 g/dL (30-55); Mean Corpuscular Hemoglobin 27.3 pg (27-33); Mean Corpuscular Volume 86.8 fl (85-98); Mean Platelet Volume 9.1 fL (7.4-10.4); Monocytes # 0.1 10^3/uL (0.2-0.9); Monocytes % 1.1 %; Neutrophils # 7.37 10^3/uL (1.8-7.7); Neutrophils % 92.6 %; Nucleated Red Blood Cells % 0 %; Platelet Count 343 10^3/cmm (157-399); Red Blood Count 4.99 10^6/uL (3.85-5.65); Red Cell Distribution Width 13.2 % (12.1-15.1); White Blood Count 7.95 10^3/uL (3.29-11.43)
[2024-02-22 12:11] LABS: Alanine Aminotransferase 17 U/L (0-33); Albumin Level 4.1 g/dL (3.5-5.2); Alkaline Phosphatase 98 U/L (35-105); Anion Gap 18.3 (5-19); Aspartate Amino Transferase 18 U/L (0-32); Blood Urea Nitrogen 17 mg/dL (8-23); Calcium 9.3 mg/dL (8.5-10.5); Carbon Dioxide 20 mmol/L (22-29); Chloride 103 mmol/L (98-107); Cortisol Random 1.04 ug/dL (2.47-19.5); Creatinine Clr Calc Pharmacy 62.5392; Globulin 3.7 g/dL (1.3-4.6); Glucose 135 mg/dL (65-115); Osmolality Calculated 288 mOsm/kg (285-295); Potassium 4.3 mmol/L (3.5-5.1); Sodium 137 mmol/L (136-145); Thyroid Stimulating Hormone 0.46 uIU/mL (0.27-4.20); Total Bilirubin 0.3 mg/dL (0.15-1.2); Total Protein 7.8 g/dL (6.6-8.7)
[2024-02-22] MEDS: sodium chloride 0.9% 250 ML 75 ML IV (14:47)
[2024-02-22] MEDS: acetaminophen 325 mg Tablet 650 MG PO (14:47)
[2024-02-22] MEDS: OLANZapine 5 mg TABLET PO (14:48)
[2024-02-22] MEDS: aprepitant 130 mg/18 ml SDV IVP (14:49)
[2024-02-22] MEDS: famotidine 20 mg/2 mL INJ IVP (14:53)
[2024-02-22] MEDS: palonosetron 0.25 mg/5 mL SDV IVP (14:57)
[2024-02-22] MEDS: dexamethasone 4 mg/mL INJ 12 MG IVP (15:01)
[2024-02-22] MEDS: diphenhydrAMINE 50 mg/mL SDV 1mL 25 MG IVP (15:04)
[2024-02-22] MEDS: cyanocobalamin 1,000 mcg/mL SDV 1000 MCG IM (15:09)
[2024-02-22] MEDS: PEMETREXED DISODIUM IV (15:38)
[2024-02-22] MEDS: SODIUM CHLORIDE 0.9% IV (15:38)
[2024-02-22 17:11] VITALS: BP 135/72; PULSE 73; RESP 16; TEMP 36.3; O2SAT 94
[2024-02-28 10:37] LABS: Basophils % 0.2 %; Eosinophils % 0.4 %; Hematocrit 42.6 % (36-47); Lymphocytes # 1.6 10^3/uL (0.8-4.8); Lymphocytes % 34.4 %; Mean Corpuscular Hemoglobin 27.1 pg (27-33); Mean Corpuscular Volume 87.5 fl (85-98); Mean Platelet Volume 9.4 fL (7.4-10.4); Monocytes % 0.4 %; Neutrophils # 3.06 10^3/uL (1.8-7.7); Neutrophils % 64.2 %; Nucleated Red Blood Cells % 0 %; Platelet Count 230 10^3/cmm (157-399); Red Blood Count 4.87 10^6/uL (3.85-5.65); Red Cell Distribution Width 13.2 % (12.1-15.1); White Blood Count 4.77 10^3/uL (3.29-11.43)
[2024-02-28 10:54] LABS: Alanine Aminotransferase 35 U/L (0-33); Albumin Level 3.8 g/dL (3.5-5.2); Alkaline Phosphatase 83 U/L (35-105); Anion Gap 13.8 (5-19); Aspartate Amino Transferase 23 U/L (0-32); Blood Urea Nitrogen 26 mg/dL (8-23); Calcium 9.3 mg/dL (8.5-10.5); Carbon Dioxide 25 mmol/L (22-29); Chloride 100 mmol/L (98-107); Creatinine Clr Calc Pharmacy 62.5392; Globulin 3.5 g/dL (1.3-4.6); Glucose 118 mg/dL (65-115); Osmolality Calculated 286 mOsm/kg (285-295); Potassium 3.8 mmol/L (3.5-5.1); Sodium 135 mmol/L (136-145); Total Bilirubin 0.4 mg/dL (0.15-1.2); Total Protein 7.3 g/dL (6.6-8.7)
[2024-03-13 13:12] LABS: Basophils % 0.4 %; Eosinophils # 0.1 10^3/uL (0.0-0.8); Eosinophils % 2.2 %; Hematocrit 36.9 % (36-47); Lymphocytes # 0.9 10^3/uL (0.8-4.8); Lymphocytes % 32.1 %; Mean Corpuscular HGB Conc 30.4 g/dL (30-55); Mean Corpuscular Hemoglobin 27.3 pg (27-33); Mean Corpuscular Volume 89.8 fl (85-98); Mean Platelet Volume 8.8 fL (7.4-10.4); Monocytes # 0.3 10^3/uL (0.2-0.9); Neutrophils # 1.49 10^3/uL (1.8-7.7); Neutrophils % 54.9 %; Nucleated Red Blood Cells % 0 %; Platelet Count 351 10^3/cmm (157-399); Red Blood Count 4.11 10^6/uL (3.85-5.65); Red Cell Distribution Width 13.5 % (12.1-15.1); White Blood Count 2.71 10^3/uL (3.29-11.43)
[2024-03-13 13:34] LABS: Alanine Aminotransferase 13 U/L (0-33); Albumin Level 2.8 g/dL (3.5-5.2); Alkaline Phosphatase 81 U/L (35-105); Anion Gap 11.2 (5-19); Aspartate Amino Transferase 12 U/L (0-32); Blood Urea Nitrogen 17 mg/dL (8-23); Calcium 7.4 mg/dL (8.5-10.5); Carbon Dioxide 19 mmol/L (22-29); Chloride 112 mmol/L (98-107); Creatinine Clr Calc Pharmacy 60.9017; Globulin 3.1 g/dL (1.3-4.6); Glucose 113 mg/dL (65-115); Osmolality Calculated 290 mOsm/kg (285-295); Potassium 3.2 mmol/L (3.5-5.1); Sodium 139 mmol/L (136-145); Total Bilirubin 0.2 mg/dL (0.15-1.2); Total Protein 5.9 g/dL (6.6-8.7)
[2024-03-20 13:50] LABS: Basophils % 0.3 %; Lymphocytes # 1.6 10^3/uL (0.8-4.8); Lymphocytes % 21.7 %; Mean Corpuscular HGB Conc 31.3 g/dL (30-55); Mean Corpuscular Hemoglobin 27.5 pg (27-33); Mean Platelet Volume 8.5 fL (7.4-10.4); Monocytes # 0.5 10^3/uL (0.2-0.9); Monocytes % 7.3 %; Neutrophils # 5.19 10^3/uL (1.8-7.7); Neutrophils % 70.3 %; Nucleated Red Blood Cells % 0 %; Platelet Count 481 10^3/cmm (157-399); Red Blood Count 4.43 10^6/uL (3.85-5.65); Red Cell Distribution Width 15.2 % (12.1-15.1); White Blood Count 7.38 10^3/uL (3.29-11.43)
[2024-03-20 14:08] LABS: Lactate Dehydrogenase 203 U/L (135-214)
[2024-03-20] MEDS: sodium chloride 0.9% 250 ML 75 ML IV (16:06)
[2024-03-20] MEDS: acetaminophen 325 mg Tablet 650 MG PO (16:10)
[2024-03-20] MEDS: OLANZapine 5 mg TABLET PO (16:11)
[2024-03-20] MEDS: diphenhydrAMINE 50 mg/mL SDV 1mL 25 MG IVP (16:12)
[2024-03-20] MEDS: palonosetron 0.25 mg/5 mL SDV IVP (16:15)
[2024-03-20] MEDS: famotidine 20 mg/2 mL INJ IVP (16:19)
[2024-03-20] MEDS: dexamethasone 4 mg/mL INJ 12 MG IVP (16:22)
[2024-03-20] MEDS: aprepitant 130 mg/18 ml SDV IVP (16:26)
[2024-03-20] MEDS: cyanocobalamin 1,000 mcg/mL SDV 1000 MCG IM (16:35)
[2024-03-20] MEDS: PEMETREXED DISODIUM IV (17:08)
[2024-03-20] MEDS: [UNRECOGNIZED DRUG - OTHER] IV (17:08)
[2024-03-20] MEDS: CARBOplatin 530 MG in sodium chloride 0.9% 500 ML 553 MG IV (17:29)
[2024-03-20] MEDS: pegfilgrastim 6 mg/0.6 mL Kit (onpro) SUBCUT (18:41)
[2024-03-20 18:50] VITALS: BP 116/70; PULSE 70; RESP 17; TEMP 35.9; O2SAT 94
== END 2024-03-20 23:59 | disposition home or self-care (01) ==
PROVIDERS: Nurse Practitioner; PCP Family Medicine; Visit Provider Internal Medicine Medical Oncology
DX: C50.312 Malignant neoplasm of lower-inner quadrant of left female breast (principal); Z53.9 Procedure and treatment not carried out, unspecified reason; Z17.0 Estrogen receptor positive status [ER+]; C78.02 Secondary malignant neoplasm of left lung; R05.3 Chronic cough; M85.80 Other specified disorders of bone density and structure, unspecified site; Z87.891 Personal history of nicotine dependence; Z92.3 Personal history of irradiation; Z79.811 Long term (current) use of aromatase inhibitors; Z79.899 Other long term (current) drug therapy; J34.89 Other specified disorders of nose and nasal sinuses
CPT/HCPCS: 36415; 80053; 82533; 83615; 84443; 85025; 96372; 96375; 96377; 96413; 96417; 99214; 99215; J0185; J1100; J1200; J2469; J2506; J3420; J3490; J7040; J7050; J9045; J9305

== ENCOUNTER → 2024-03-24 10:33 | Outpatient (BNVA) | payer MEDICARE, SELFPAY | PROVIDERS: PCP Family Medicine; Referring Provider Internal Medicine Medical Oncology; Visit Provider Student in an Organized Health Care Education/Training Program | DX: Z95.828 Presence of other vascular implants and grafts (principal); C34.92 Malignant neoplasm of unspecified part of left bronchus or lung | CPT/HCPCS: 99204 ==

== ENCOUNTER 2024-03-27 07:18 | Day surgery (SDC) | payer MEDICARE, SELFPAY ==
[2024-03-27] VITALS (9 sets, daily range): BP systolic 119–136; BP diastolic 54–83; PULSE 67–96; RESP 16–20; TEMP 36.1–36.7; O2SAT 95–98; BMI 24.4
--- NOTE | 2024-03-27 07:26 | SC_ITS ---
WS: [id number] INTRAOPERATIVE TECHNIQUE: 2 Spot fluoroscopic images for intraoperative purposes. FLUOROSCOPY TIME: 9.9 seconds CLINICAL INFORMATION: port placement FINDINGS: RIGHT Port-A-Cath with tip in the distal SVC. No visualized pneumothorax. SC/C-arm FL for CVA [id number] IMPRESSION: Images obtained for intraoperative purposes.
[2024-03-27] MEDS: sodium chloride 0.9% 1,000 ML 30 ML IV (08:33)
--- NOTE | 2024-03-27 09:49 | ANES.PREANE2 ---
Pre-Anesthetic Assessment Height/Weight: Height 1.65 m Weight 66.678 kg Temp Pulse Resp BP Pulse Ox O2 Del Method 98.1 F 68 16 129/58 98 Room Air 03/27/24 07:47 03/27/24 07:47 03/27/24 07:47 03/27/24 07:47 03/27/24 07:47 03/27/24 07:51 Operation Date: 03/27/24 08:00 Proposed Procedures p Portacath Placement 31937, Z86.828, C34.92, C34.90(Not Applicable) - Manuel Diehl MD Familial anesthetic complications: none Last intake: Intake Last Liquid Date 03/26/24 Last Liquid Time 19:00 Last Solid Date 03/26/24 Last Solid Time :00 Social No alcohol and No tobacco (h/o smoking) Exam alert, oriented x 3, clear to auscultation bilaterally and regular rate & rhythm Airway Submandibular: within normal limits Cervical ROM: within normal limits Mallampati: Class II Dentition: full Pulmonary Lung CA GI Gastroesophageal Reflux Disease Anesthetic Plan ASA status: 3 Anesthesia: MAC Medications/Allergies Home Medications Medication Instructions Recorded Confirmed Last Taken Type calcium carbonate 500 mg PO DAILY PRN Heartburn 12/10/21 03/24/24 03/24/24 History cholecalciferol (vitamin D3) 75 75 mcg PO DAILY 12/10/21 03/24/24 03/26/24 History mcg (3,000 unit) tablet esomeprazole magnesium 20 mg 20 mg PO DAILY 12/10/21 03/24/24 03/26/24 History capsule,delayed release (Nexium) promethazine-DM 6.25 mg-15 mg/5 mL 5 ml PO Q4H PRN cough #118 mL 01/21/24 03/24/24 Unknown Rx oral syrup albuterol sulfate 2.5 mg/3 mL 2.5 mg (3 mL) inhalation QID PRN 02/18/24 03/24/24 03/24/24 Rx (0.083 %) solution for nebulization shortness of breath or wheezing #1,080 mL albuterol sulfate 90 mcg/actuation 2 puff inhalation QID PRN 02/18/24 03/24/24 03/23/24 Rx aerosol inhaler shortness of breath or wheezing #8.5 grams denosumab 60 mg/mL subcutaneous 60 mg SUBCUT .[id number] 02/18/24 03/24/24 Unknown History syringe (Prolia) dexamethasone 4 mg tablet 4 mg PO BID 02/22/24 03/24/24 03/24/24 History folic acid 1 mg tablet 1 mg PO DAILY 02/22/24 03/24/24 03/26/24 History lorazepam 0.5 mg tablet 0.5 mg PO TID PRN severe nausea 02/22/24 03/24/24 Unknown Rx #30 tabs ondansetron 8 mg disintegrating 8 mg PO Q8H PRN Nausea And Vomiting 02/22/24 03/24/24 Unknown History tablet prochlorperazine maleate 10 mg 10 mg PO Q6H PRN nausea and 02/22/24 03/24/24 Unknown Rx tablet (Compazine) vomiting #60 tabs triamcinolone acetonide 0.1 % 1 applic topical TID PRN itching 03/13/24 03/24/24 03/24/24 Rx topical cream #15 grams anastrozole 1 mg tablet 1 mg PO DAILY 03/24/24 03/24/24 03/26/24 History Allergies Allergy/AdvReac Type Severity Reaction Status Date / Time No Known Allergies Allergy Verified 03/24/24 11:51 Current Medications Generic Name Dose Route Start Last Admin Trade Name Freq PRN Reason Stop Dose Admin Sodium Chloride 1,000 mls @ 30 mls/hr 03/27/24 07:30 03/27/24 08:33 Sodium Chloride 0.9% IV 03/28/24 07:29 30 mls/hr .Q24H JAYMIE Administration PFSH Anesthesia Medical History Osteoporosis osteoporosis on DEXA in past, treated w/ Prolia Metastatic primary lung cancer adenocarcinoma; mets to liver, omentum, supraclavicular lymph nodes; Dr. Arnold at for onc and Dr. Brown for local onc--to be starting chemo Osteopenia Breast cancer L breast--just had radiation and anastrazole GERD (gastroesophageal reflux disease) Vitamin D deficiency Surgical History History of lung biopsy bronchoscopy bx IDRIS 11.6.24 H/O vein stripping bilateral History of lumpectomy of left breast (05/04/19) Left breast lumpectomy with axillary sentinel lymph node biopsy History of bunionectomy of right great toe Family History Sister Cancer breast Family/Other Cancer Breast, brain Mother Dementia Hypertension Other Diabetes Suicide Denies family history of CAD (coronary artery disease) Clotting disorder Hyperlipidemia Psychiatric illness Chronic kidney disease (CKD) Anesthesia complication Bleeding disorder Lung disease Stroke Social History Smoking and tobacco/nicotine status: former use of tobacco/nicotine Quit status (tobacco/nicotine): has quit using Year quit tobacco: 1976 Former quit date comment: approx. 7 years Alcohol intake: current Alcohol intake frequency: holidays/special occasions only Substance/Drug Use: never Household members: spouse Marital status: Number of children: 3 Highest education level completed: Master's Degree Current occupational status: retired Previous occupational history: teacher and still teaches Data Anesthesia Cardiac Studies: No Data to Display
--- NOTE | 2024-03-27 10:09 | W.PM.OPSUD ---
Surgery/Procedure H&P Update DATE OF PROCEDURE: March 27, 2024 DATE H&P PERFORMED: 03/24/24 H&P UPDATE INFORMATION: I have reviewed H&P completed within last 30 days, I have examined patient prior to procedure and No changes to prior documentation PLANNED PROCEDURE: Operation Date: 03/27/24 08:00 Proposed Procedures p Portacath Placement 68046, Z86.828, C34.92, C34.90(Not Applicable) - Manuel Diehl MD
[2024-03-27] MEDS: ceFAZolin 2,000 mg SDV 2000 MG IVP (10:40)
[2024-03-27] MEDS: lidocaine-epi 1% PF 1:200,000 30 mL SDV INJECTION (11:01)
[2024-03-27] MEDS: BUPivacaine 0.25% INJ 30 mL INJECTION (11:01)
[2024-03-27] MEDS: heparin, porcine 1,000 unit/mL INJ 10 mL 10000 UNIT IRRIGATION (11:10)
--- NOTE | 2024-03-27 11:23 | PM.OP ---
Operative Report Date of procedure: March 27, 2024 Pre-op diagnosis: lung cancer Post-op diagnosis: same Post-op findings: Port in place. Right internal jugular accessed. Tip at atriocaval junction confirmed with intraoperative fluoroscopy. Procedure done: Port placement (right internal jugular vein) Implants: Port-a-cath Specimens removed/disposition: NA Pathology: none sent Surgeon: Manuel Diehl MD Photo Machine Operator: [email or web address] Anesthesia: MAC Estimated blood loss (mL): 5 Complications: NA Findings: Tip of port-a-cath at atriocaval junction - intraoperative fluoroscopy Condition: stable Disposition: same day Brief History: 74yo female with history of lung cancer. Discussed risks and benefits of port placement and patient agreed to proceed. Procedure: Patient was brought into the operating room and a timeout was carried out. Procedure was done under MAC. Patient was placed supine with the arms tucked and in Trendelenburg. Patient was prepped and draped in the usual sterile fashion. Using ultrasound guidance the right internal jugular vein was accessed. A guidewire was then placed down to the atriocaval junction using fluoroscopy. The finder needle was removed and the guidewire was secured. I then turned my attention to creating a pocket over the right chest. Make sure to locally infiltrated using plain lidocaine and bupivacaine at the site of the pocket and throughout the tunnel site. I confirmed adequate hemostasis at the pocket. I then proceeded to place the port that was already preassembled and flushed with heparinized saline and the chest pocket. I tunneled the catheter from the chest to the neck at the site where I accessed the internal jugular vein. I measured and adjusted the length of the catheter so it would reach the atrial caval junction. At this point, I used a dilator to dilate the tract into the internal jugular vein using fluoroscopy. I removed the guidewire and proceeded to thread the central venous catheter through the introducer. In the process, I removed the sheath as a completely pushed the catheter into the internal jugular vein. I then confirmed adequate placement of the catheter by performing intraoperative interpretation of fluoroscopy. The tip of the catheter was confirmed to be placed in the atriocaval junction. There were no kinks noted throughout the trajectory of the catheter. I then proceeded to test the port and was satisfied with its functionality. I proceeded to flushed the catheter without any issues. I then hep-locked the port. Skin was closed using deep dermal 3-0 Vicryl, subcuticular 4-0 Monocryl, and Dermabond. Patient was then transferred to PACU without any complications.
--- NOTE | 2024-03-27 12:15 | ANE.PACU2 ---
Inpatient post-anesthesia follow up: Airway intact: Yes Vital signs: Temperature 97.2 F Pulse Rate 69 Respiratory Rate 16 Blood Pressure 127/69 Pulse Oximetry 95 Oxygen Delivery Me thod Room Air Oxygen Flow Rate Fraction of Inspir ed Oxygen Hydration adequate: Yes Nausea and vomiting: No Pain level: 1 Mental status: Baseline
== END 2024-03-27 12:55 | disposition home or self-care (01) ==
PROVIDERS: PCP Family Medicine; Visit Provider Student in an Organized Health Care Education/Training Program
PROC: (CPT 36561; principal; 2024-03-27 08:00)
DX: C34.90 Malignant neoplasm of unspecified part of unspecified bronchus or lung (principal); K21.9 Gastro-esophageal reflux disease without esophagitis; M81.0 Age-related osteoporosis without current pathological fracture; Z85.3 Personal history of malignant neoplasm of breast; Z87.891 Personal history of nicotine dependence
CPT/HCPCS: 36561; 77001; C1788; J0690; J1644; J2250; J3010; J3490; J7030

== ENCOUNTER 2024-04-03 07:44 | Outpatient (CLI) | payer MEDICARE, SELFPAY ==
--- NOTE | 2024-04-03 09:00 | CT_ITS ---
WS: [id number] CT CHEST, ABDOMEN AND PELVIS WITH CONTRAST HISTORY: cancer left lung TECHNIQUE: Contiguous 5 mm axial imaging performed through the chest, abdomen and pelvis with IV cont rast, oral contrast has been provided. Coronal and sagittal reformats chest. Coronal and sagittal ref ormats through the abdomen and pelvis. All CT scans at [facility] use at least one of these d ose optimization techniques: automated exposure control; mA and/or kV adjustment per patient size (in cludes targeted exams where dose is matched to clinical indication); or iterative reconstruction. CONTRAST: Omnipaque 350; 100 mL IV. DLP: 716.19 mGy.cm COMPARISON: 12/31/2023, PET/CT 02/04/[address]: Interval response to treatment. Dominant irregular solid mass in the LEFT upper lobe measur es 2.3 x 2.4 x 2.5 cm. Prior measurement 2.2 x 3.1 x 3.0 cm. Innumerable pulmonary nodules are reiden tified. These nodules have decreased in size. Majority of these nodules are still present but some sutton ve resolved. Significant decrease in size. Small layering LEFT pleural effusion is unchanged. Hilar lymph nodes have decreased in size and number since 12/31/2023. Lymph nodes are less necrotic. Largest lymph node LEFT hilum is 10 mm. No identifiable enlarged supraclavicular or axillary nodes. Mild atherosclerosis aorta. Normal size pulmonary artery. Normal size heart. Coarse LEFT breast calci fications. LEFT breast skin thickening from prior breast cancer treatment. Right-sided Mediport. Larg e hiatal hernia. Abdomen CT: Previously described metastatic site in the RIGHT lobe of the liver is not identified tod ay. Normal liver. Normal spleen and gallbladder. No adrenal mass. Normal pancreas. Kidneys are enhanc ing normally with a few cortical hypodensities. Moderate calcified plaque abdominal aorta. Nodular omental carcinomatosis is noted along the anterior mid and LEFT abdomen. Carcinomatosis has s ignificantly improved. There is still a nodular component. No suspicious mesenteric or retroperitonea l lymph nodes. Pelvic CT: No ascites. No adenopathy. Normal urinary bladder. No destructive bone lesions. CT/CT chest abdpel w/*[id number] IMPRESSION: 1. Dominant solid mass LEFT upper lobe measures 2.3 x 2.4 x 2.5 cm. Has decrea sed slightly in size from 2.2 x 3.1 x 3.0 cm. 2. Previously described innumerable metastatic pulmonary nodules have all decr eased in size and number. 3. Small LEFT pleural effusion, unchanged. 4. Decrease in size of the hilar lymph nodes. Largest lymph node is 10 mm on t he LEFT. 5. No identifiable supraclavicular or axillary lymph nodes. 6. Nodular omental carcinomatosis has moderately improved along the mid and LE FT omentum. 7. No ascites. 8. No identifiable lymphadenopathy in the abdomen and pelvis.
[2024-04-03] MEDS: iohexol 350 mg/mL 500 mL Btl (per mL) PO (09:01)
[2024-04-03] MEDS: iohexol 350 mg/mL 500 mL Btl (per mL) IV (09:10)
== END 2024-04-03 07:45 | disposition home or self-care (01) ==
LOC: RAD 07:45 → ONCMED 09:02
PROVIDERS: PCP Family Medicine; Visit Provider Internal Medicine Medical Oncology
DX: D70.9 Neutropenia, unspecified (principal); C50.312 Malignant neoplasm of lower-inner quadrant of left female breast; Z17.0 Estrogen receptor positive status [ER+]; R05.3 Chronic cough; C34.12 Malignant neoplasm of upper lobe, left bronchus or lung; J90 Pleural effusion, not elsewhere classified
CPT/HCPCS: 71260; 74177

== ENCOUNTER 2024-04-10 08:03 | Oncology outpatient (recurring) (ONCR) | payer MEDICARE, SELFPAY ==
[2024-04-10 08:40] LABS: Basophils # 0.1 10^3/uL (0.0-0.1); Basophils % 0.9 %; Eosinophils % 0.5 %; Hematocrit 36.4 % (36-47); Lymphocytes # 1.7 10^3/uL (0.8-4.8); Lymphocytes % 29.3 %; Mean Corpuscular Hemoglobin 27.8 pg (27-33); Mean Corpuscular Volume 89.4 fl (85-98); Mean Platelet Volume 8.6 fL (7.4-10.4); Monocytes # 0.6 10^3/uL (0.2-0.9); Monocytes % 10.4 %; Neutrophils # 3.36 10^3/uL (1.8-7.7); Neutrophils % 58.2 %; Nucleated Red Blood Cells % 0 %; Platelet Count 349 10^3/cmm (157-399); Red Blood Count 4.07 10^6/uL (3.85-5.65); White Blood Count 5.77 10^3/uL (3.29-11.43)
[2024-04-10 08:55] LABS: Alanine Aminotransferase 23 U/L (0-33); Albumin Level 3.7 g/dL (3.5-5.2); Alkaline Phosphatase 92 U/L (35-105); Anion Gap 18.3 (5-19); Aspartate Amino Transferase 21 U/L (0-32); Blood Urea Nitrogen 17 mg/dL (8-23); Calcium 9.1 mg/dL (8.5-10.5); Carbon Dioxide 24 mmol/L (22-29); Chloride 107 mmol/L (98-107); Globulin 3.4 g/dL (1.3-4.6); Glucose 102 mg/dL (65-115); Osmolality Calculated 300 mOsm/kg (285-295); Potassium 5.3 mmol/L (3.5-5.1); Sodium 144 mmol/L (136-145); Total Bilirubin 0.2 mg/dL (0.15-1.2); Total Protein 7.1 g/dL (6.6-8.7)
[2024-04-10] MEDS: sodium chloride 0.9% 250 ML 75 ML IV (10:57)
[2024-04-10] MEDS: OLANZapine 5 mg TABLET PO (11:00)
[2024-04-10] MEDS: acetaminophen 325 mg Tablet 650 MG PO (11:00)
[2024-04-10] MEDS: aprepitant 130 mg/18 ml SDV IVP (11:01)
[2024-04-10] MEDS: dexamethasone 4 mg/mL INJ 12 MG IVP (11:06)
[2024-04-10] MEDS: famotidine 20 mg/2 mL INJ IVP (11:11)
[2024-04-10] MEDS: palonosetron 0.25 mg/5 mL SDV IVP (11:14)
[2024-04-10] MEDS: diphenhydrAMINE 50 mg/mL SDV 1mL 25 MG IVP (11:17)
[2024-04-10] MEDS: cyanocobalamin 1,000 mcg/mL SDV 1000 MCG IM (11:33)
[2024-04-10] MEDS: [UNRECOGNIZED DRUG - OTHER] IV (12:08)
[2024-04-10] MEDS: PEMETREXED DISODIUM IV (12:08)
[2024-04-10] MEDS: CARBOPLATIN IV (12:33)
[2024-04-10] MEDS: SODIUM CHLORIDE 0.9% IV (12:33)
[2024-04-10 14:32] VITALS: BP 123/59; PULSE 79; TEMP 36.9; O2SAT 93
[2024-04-10] MEDS: pegfilgrastim 6 mg/0.6 mL Kit (onpro) SUBCUT (14:38)
== END 2024-04-21 23:59 | disposition home or self-care (01) ==
PROVIDERS: PCP Family Medicine; Visit Provider Internal Medicine Medical Oncology
DX: Z51.11 Encounter for antineoplastic chemotherapy (principal); C34.92 Malignant neoplasm of unspecified part of left bronchus or lung; C50.312 Malignant neoplasm of lower-inner quadrant of left female breast; Z17.0 Estrogen receptor positive status [ER+]; R21 Rash and other nonspecific skin eruption; T45.1X5A Adverse effect of antineoplastic and immunosuppressive drugs, initial encounter; Z79.52 Long term (current) use of systemic steroids; Z79.899 Other long term (current) drug therapy; Z87.891 Personal history of nicotine dependence; Z95.828 Presence of other vascular implants and grafts; Z79.811 Long term (current) use of aromatase inhibitors; Z92.3 Personal history of irradiation
CPT/HCPCS: 80053; 85025; 96375; 96377; 96401; 96413; 96417; 96523; 99213; 99214; J0185; J1100; J1200; J2469; J2506; J3420; J3490; J7040; J7050; J9045; J9305

== ENCOUNTER 2024-05-12 08:30 | Oncology outpatient (recurring) (ONCR) | payer MEDICARE, SELFPAY ==
[2024-05-01 08:13] LABS: Basophils % 0.7 %; Eosinophils # 0.1 10^3/uL (0.0-0.8); Eosinophils % 1.9 %; Hematocrit 33.3 % (36-47); Lymphocytes # 1.1 10^3/uL (0.8-4.8); Lymphocytes % 18.1 %; Mean Corpuscular HGB Conc 31.5 g/dL (30-55); Mean Corpuscular Hemoglobin 29.3 pg (27-33); Monocytes # 0.6 10^3/uL (0.2-0.9); Monocytes % 10.3 %; Neutrophils # 4.02 10^3/uL (1.8-7.7); Neutrophils % 68.7 %; Nucleated Red Blood Cells % 0 %; Platelet Count 294 10^3/cmm (157-399); Red Blood Count 3.58 10^6/uL (3.85-5.65); Red Cell Distribution Width 22.4 % (12.1-15.1); White Blood Count 5.85 10^3/uL (3.29-11.43)
[2024-05-01 08:32] LABS: Alanine Aminotransferase 23 U/L (0-33); Albumin Level 3.7 g/dL (3.5-5.2); Alkaline Phosphatase 101 U/L (35-105); Anion Gap 15.8 (5-19); Aspartate Amino Transferase 20 U/L (0-32); Blood Urea Nitrogen 19 mg/dL (8-23); Calcium 9.2 mg/dL (8.5-10.5); Carbon Dioxide 23 mmol/L (22-29); Chloride 105 mmol/L (98-107); Globulin 3.3 g/dL (1.3-4.6); Glucose 113 mg/dL (65-115); Osmolality Calculated 293 mOsm/kg (285-295); Potassium 3.8 mmol/L (3.5-5.1); Sodium 140 mmol/L (136-145); Total Bilirubin 0.2 mg/dL (0.15-1.2)
[2024-05-01] MEDS: acetaminophen 325 mg Tablet 650 MG PO (10:13)
[2024-05-01] MEDS: OLANZapine 5 mg TABLET PO (10:14)
[2024-05-01] MEDS: diphenhydrAMINE 50 mg/mL SDV 1mL 25 MG IVP (10:15)
[2024-05-01] MEDS: palonosetron 0.25 mg/5 mL SDV IVP (10:15)
[2024-05-01] MEDS: sodium chloride 0.9% 250 ML 75 ML IV (10:15)
[2024-05-01] MEDS: famotidine 20 mg/2 mL INJ IVP (10:18)
[2024-05-01] MEDS: aprepitant 130 mg/18 ml SDV IVP (10:20)
[2024-05-01] MEDS: dexamethasone 4 mg/mL INJ 12 MG IVP (10:24)
[2024-05-01] MEDS: PEMETREXED DISODIUM IV (11:03)
[2024-05-01] MEDS: [UNRECOGNIZED DRUG - OTHER] IV (11:03)
[2024-05-01] MEDS: CARBOPLATIN IV (11:34)
[2024-05-01] MEDS: SODIUM CHLORIDE 0.9% IV (11:34)
[2024-05-01] MEDS: pegfilgrastim 6 mg/0.6 mL Kit (onpro) SUBCUT (12:55)
[2024-05-01 13:02] VITALS: BP 116/60; PULSE 68; TEMP 36.6; O2SAT 95
--- NOTE | 2024-05-12 08:30 | CT_ITS ---
WS: [id number] CT CHEST, ABDOMEN, AND PELVIS TECHNIQUE: Contrast-enhanced CT of the chest, abdomen, and pelvis with coronal and sagittal reformatted images. CLINICAL INFORMATION: Restaging COMPARISON: None. DLP: 655.[address] scans at [facility] use at least one of these dose optimization techniques: automated exposure control; mA and/or kV adjustment per patient size (includes targeted exams where dose is matched to clinical indication); or iterative reconstruction. CT CHEST: Again seen is a spiculated neoplasm in the LEFT upper lobe. Today this measures approximately 2.1 x 2.6 x 2.3 cm not significantly changed compared to previous. Similar-appearing surrounding spiculation. This slightly extends to the anterior apical pleura. Stable 10 mm LEFT hilar lymph node. Small LEFT pleural effusion. Scattered fibrosis throughout both lungs. Smaller subcentimeter metastatic nodules appear stable. No evidence of disease progression. Aortic calcification. Proximal pulmonary arteries are normal. No progressed mediastinal or hilar lymphadenopathy. No axillary lymphadenopathy. Partially calcified LEFT breast nodule unchanged. Large esophageal hiatal hernia. Mild thoracic curve. CT ABDOMEN AND PELVIS: No enhancing lesions in the liver visualized today. Normal portal vein and splenic vein. Splenic granulomas. Normal pancreatic parenchymal enhancement. Hydropic gallbladder with fluid distention similar to previous. Portal vein and splenic vein are patent. Large esophageal hiatal hernia. Aortic calcification. Adrenal glands are normal. Normal renal parenchymal enhancement. No hydronephrosis. Small bilateral renal cysts. Urine distended bladder. Sigmoid diverticulosis. No evidence of acute diverticulitis. Moderate fecal retention in the transverse colon. No lymphadenopathy in the abdomen or pelvis. Tiny amount of omental carcinomatosis with slight nodularity previously described eccentric to the LEFT appears stable. No evidence of progression. This appears slightly improved in some areas. CT/CT chest abdpel w/*[id number] IMPRESSION: 1. Stable spiculated LEFT upper lobe neoplasm. This is not significantly dickens ed since 04/03/2024. 2. Small LEFT pleural effusion. 3. Additional scattered subcentimeter pulmonary nodules bilaterally are stable . 4. Stable 10 mm LEFT hilar lymph node. 5. Omental carcinomatosis appears slightly improved. 6. No evidence of disease progression in the chest abdomen pelvis.
[2024-05-12] MEDS: iohexol 350 mg/mL 500 mL Btl (per mL) IV (08:44)
[2024-05-12] MEDS: iohexol 350 mg/mL 500 mL Btl (per mL) PO (08:45)
== END 2024-05-19 23:59 | disposition home or self-care (01) ==
LOC: RAD 05-13 → ONCMED 05-15 09:12
PROVIDERS: Internal Medicine Medical Oncology; PCP Family Medicine; Visit Provider Nurse Practitioner Family
DX: C34.12 Malignant neoplasm of upper lobe, left bronchus or lung (principal)
CPT/HCPCS: 71260; 74177; 80053; 85025; 96375; 96377; 96413; 96417; 99214; J0185; J1100; J1200; J2469; J2506; J3490; J7040; J7050; J9045; J9305

== ENCOUNTER 2024-06-12 08:45 | Oncology outpatient (recurring) (ONCR) | payer MEDICARE, SELFPAY ==
[2024-05-22 08:24] LABS: Basophils % 0.3 %; Hematocrit 29.2 % (36-47); Lymphocytes % 17.6 %; Mean Corpuscular HGB Conc 31.8 g/dL (30-55); Mean Corpuscular Hemoglobin 30.9 pg (27-33); Mean Platelet Volume 9.1 fL (7.4-10.4); Monocytes # 0.6 10^3/uL (0.2-0.9); Monocytes % 9.3 %; Neutrophils # 4.22 10^3/uL (1.8-7.7); Neutrophils % 71.4 %; Nucleated Red Blood Cells % 0 %; Platelet Count 378 10^3/cmm (157-399); Red Blood Count 3.01 10^6/uL (3.85-5.65); Red Cell Distribution Width 23.9 % (12.1-15.1); White Blood Count 5.91 10^3/uL (3.29-11.43)
[2024-05-22 08:48] LABS: Alanine Aminotransferase 15 U/L (0-33); Albumin Level 3.9 g/dL (3.5-5.2); Alkaline Phosphatase 116 U/L (35-105); Anion Gap 14.6 (5-19); Aspartate Amino Transferase 20 U/L (0-32); Blood Urea Nitrogen 16 mg/dL (8-23); Calcium 9.6 mg/dL (8.5-10.5); Carbon Dioxide 23 mmol/L (22-29); Chloride 106 mmol/L (98-107); Globulin 3.4 g/dL (1.3-4.6); Glucose 111 mg/dL (65-115); Osmolality Calculated 292 mOsm/kg (285-295); Potassium 3.6 mmol/L (3.5-5.1); Sodium 140 mmol/L (136-145); Total Bilirubin 0.2 mg/dL (0.15-1.2); Total Protein 7.3 g/dL (6.6-8.7)
--- NOTE | 2024-05-22 08:51 | PC.PHAR ---
verbal order from dr. garcia for patient to start on maintenance alimta today. she had two more cycles with carbo in the system so i held that plus the associated meds for next two cycles then she will transition to alimta maintenance with the treatment plan.
[2024-05-22] MEDS: sodium chloride 0.9% 250 ML 75 ML IV (09:16)
[2024-05-22] MEDS: ondansetron 2 mg/ML SDV 2 mL 8 MG IVP (09:17)
[2024-05-22] MEDS: dexamethasone 4 mg/mL INJ 12 MG IVP (09:19)
[2024-05-22] MEDS: [UNRECOGNIZED DRUG - OTHER] IV (09:36)
[2024-05-22] MEDS: PEMETREXED DISODIUM IV (09:36)
[2024-05-22 10:01] VITALS: BP 111/73; PULSE 63; RESP 18; TEMP 36.2; O2SAT 96
--- NOTE | 2024-05-29 09:30 | MM_ITS ---
WS: [id number] DIAGNOSTIC BILATERAL DIGITAL BREAST TOMOSYNTHESIS MAMMOGRAPHY WITH CAD HISTORY: lumpectomy of left breast COMPARISON: 05/20/2023, 05/07/2022, 04/21/2021 TECHNIQUE: Bilateral craniocaudad, mediolateral oblique, and mediolateral views are submitted with tomosynthesis and SM. Computer aided detection utilized. Breast composition: There are scattered areas of fibroglandular density. Postlumpectomy changes and postradiation changes LEFT breast. There is volume loss with increase in trabecular thickening and skin thickening. Similar to prior studies. Numerous surgical clips are noted in the medial LEFT breast. No new mass or recurrent mass. No suspicious grouping of calcifications within either breast. Clip in the LEFT axilla from prior sussy dissection. MM/MM diag BI tomosynthesis [id number] IMPRESSION: BI-RADS: 2 - Benign. FOLLOW UP: 1 Year Follow-up
--- NOTE | 2024-05-30 09:30 | MR_ITS ---
WS: [id number] MRI BRAIN WITH AND WITHOUT CONTRAST HISTORY: non small cell caner of left lung COMPARISON: 01/31/2024 TECHNIQUE: Multiplanar imaging performed through the brain with MultiHance 15 ml's IV. No acute infarcts are seen. Stevens-white matter differentiation is well preserved. Moderate parenchymal volume loss as noted on the prior study. Slightly greater in the temporal lobes. Tiny chronic lacunar infarct in the RIGHT cerebellum. No significant hippocampal atrophy. Ventricles and extra-axial spaces are normal. Clivus and pituitary gland are normal. Postcontrast images are negative for masses or vascular malformations. Dural venous sinuses are normal. Paranasal sinuses: Well aerated with no significant disease. Mastoid air cells: Normal. Calvarium and scalp: Normal. MR/MR head wo/w con [id number] IMPRESSION: 1. No acute intracranial hemorrhage or edema. 2. No evidence for metastatic disease to the brain. 3. Stable moderate vessel ischemic changes and moderate parenchymal volume los s.
[2024-05-30] MEDS: gadobenate dimeglumine 20 mL vial IV (10:06)
[2024-06-12 08:42] LABS: Basophils % 0.4 %; Eosinophils # 0.2 10^3/uL (0.0-0.8); Eosinophils % 6.3 %; Hematocrit 30.7 % (36-47); Lymphocytes # 0.6 10^3/uL (0.8-4.8); Lymphocytes % 26.3 %; Mean Corpuscular HGB Conc 30.6 g/dL (30-55); Mean Corpuscular Hemoglobin 31.2 pg (27-33); Monocytes # 0.4 10^3/uL (0.2-0.9); Monocytes % 15.4 %; Neutrophils # 1.24 10^3/uL (1.8-7.7); Neutrophils % 51.6 %; Nucleated Red Blood Cells % 0 %; Platelet Count 372 10^3/cmm (157-399); Red Blood Count 3.01 10^6/uL (3.85-5.65); Red Cell Distribution Width 21.7 % (12.1-15.1)
[2024-06-12 08:57] LABS: Alanine Aminotransferase 16 U/L (0-33); Albumin Level 3.6 g/dL (3.5-5.2); Alkaline Phosphatase 105 U/L (35-105); Anion Gap 15.8 (5-19); Aspartate Amino Transferase 30 U/L (0-32); Blood Urea Nitrogen 13 mg/dL (8-23); Calcium 8.7 mg/dL (8.5-10.5); Carbon Dioxide 24 mmol/L (22-29); Chloride 111 mmol/L (98-107); Globulin 3.2 g/dL (1.3-4.6); Glucose 112 mg/dL (65-115); Osmolality Calculated 303 mOsm/kg (285-295); Potassium 4.8 mmol/L (3.5-5.1); Sodium 146 mmol/L (136-145); Total Bilirubin 0.3 mg/dL (0.15-1.2); Total Protein 6.8 g/dL (6.6-8.7)
[2024-06-12] MEDS: sodium chloride 0.9% 250 ML 75 ML IV (11:48)
[2024-06-12] MEDS: ondansetron 2 mg/ML SDV 2 mL 8 MG IVP (11:51)
[2024-06-12] MEDS: dexamethasone 4 mg/mL INJ 12 MG IVP (11:55)
[2024-06-12] MEDS: cyanocobalamin 1,000 mcg/mL SDV 1000 MCG IM (11:59)
[2024-06-12] MEDS: PEMETREXED DISODIUM IV (12:36)
[2024-06-12] MEDS: [UNRECOGNIZED DRUG - OTHER] IV (12:36)
[2024-06-12] MEDS: pegfilgrastim 6 mg/0.6 mL Kit (onpro) SUBCUT (13:06)
[2024-06-12 13:20] VITALS: PULSE 65; RESP 17
== END 2024-06-19 23:59 | disposition home or self-care (01) ==
PROVIDERS: Nurse Practitioner Family; PCP Family Medicine; Visit Provider Internal Medicine Medical Oncology
DX: Z53.9 Procedure and treatment not carried out, unspecified reason; C34.92 Malignant neoplasm of unspecified part of left bronchus or lung; C50.312 Malignant neoplasm of lower-inner quadrant of left female breast; Z17.0 Estrogen receptor positive status [ER+]; D64.9 Anemia, unspecified; D75.9 Disease of blood and blood-forming organs, unspecified; R21 Rash and other nonspecific skin eruption; T45.1X5A Adverse effect of antineoplastic and immunosuppressive drugs, initial encounter; M85.80 Other specified disorders of bone density and structure, unspecified site; Z87.891 Personal history of nicotine dependence; Z79.811 Long term (current) use of aromatase inhibitors; Z79.899 Other long term (current) drug therapy; Z79.52 Long term (current) use of systemic steroids
CPT/HCPCS: 70553; 77062; 80053; 85025; 96372; 96375; 96377; 96413; 99214; G0279; J1100; J2405; J2506; J3420; J7050; J9305

== ENCOUNTER 2024-07-17 12:00 | Oncology outpatient (recurring) (ONCR) | payer MEDICARE, SELFPAY ==
[2024-07-03 10:10] LABS: Basophils % 0.6 %; Eosinophils # 0.2 10^3/uL (0.0-0.8); Eosinophils % 3.5 %; Hematocrit 32.1 % (36-47); Lymphocytes % 15.9 %; Mean Corpuscular HGB Conc 30.8 g/dL (30-55); Mean Corpuscular Hemoglobin 32.6 pg (27-33); Mean Corpuscular Volume 105.6 fl (85-98); Mean Platelet Volume 9.2 fL (7.4-10.4); Monocytes # 0.7 10^3/uL (0.2-0.9); Neutrophils # 4.48 10^3/uL (1.8-7.7); Neutrophils % 68.2 %; Nucleated Red Blood Cells % 0 %; Platelet Count 306 10^3/cmm (157-399); Red Blood Count 3.04 10^6/uL (3.85-5.65); Red Cell Distribution Width 17.2 % (12.1-15.1); White Blood Count 6.56 10^3/uL (3.29-11.43)
[2024-07-03 10:27] LABS: Alanine Aminotransferase 15 U/L (0-33); Albumin Level 3.6 g/dL (3.5-5.2); Alkaline Phosphatase 121 U/L (35-105); Anion Gap 12.9 (5-19); Aspartate Amino Transferase 20 U/L (0-32); Blood Urea Nitrogen 15 mg/dL (8-23); Calcium 9.2 mg/dL (8.5-10.5); Carbon Dioxide 24 mmol/L (22-29); Chloride 107 mmol/L (98-107); Globulin 3.7 g/dL (1.3-4.6); Glucose 91 mg/dL (65-115); Osmolality Calculated 290 mOsm/kg (285-295); Potassium 3.9 mmol/L (3.5-5.1); Sodium 140 mmol/L (136-145); Total Bilirubin 0.2 mg/dL (0.15-1.2); Total Protein 7.3 g/dL (6.6-8.7)
[2024-07-03] MEDS: sodium chloride 0.9% 250 ML 75 ML IV (12:06)
[2024-07-03] MEDS: dexamethasone 4 mg/mL INJ 5 mL 12 MG IVP (12:07)
[2024-07-03] MEDS: PEMETREXED DISODIUM IV (12:45)
[2024-07-03] MEDS: [UNRECOGNIZED DRUG - OTHER] IV (12:45)
[2024-07-03] MEDS: pegfilgrastim 6 mg/0.6 mL Kit (onpro) SUBCUT (13:37)
[2024-07-03] MEDS: denosumab 60 mg SDV SUBCUT (13:47)
--- NOTE | 2024-07-17 12:00 | CTR_ITS ---
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 Brown would like this om 07/17/24 TECHNIQUE: Imaging protocol: Diagnostic computed tomography of the chest with contrast. Sagittal and coronal reformatted images were also reviewed. Radiation optimization: All CT scans at this facility use at least one of these dose optimization techniques: automated exposure control; mA and/or kV adjustment per patient size (includes targeted exams where dose is matched to clinical indication); or iterative reconstruction. Contrast material: OMNI 350; Contrast volume: 100 ml; Contrast route: INTRAVENOUS (IV); COMPARISON: CT chest abdpel w/*[id number] 05/12/2024 8:25 AM RADIATION DOSE METRICS: Total DLP (mGy-cm): 644.85 FINDINGS: Tubes, catheters and devices: Right internal jugular Port-A-Cath is stable in position with the tip at the cavoatrial junction. Trachea: Tracheobronchial structures are patent. Lungs: Stable linear scarring in the mid and lower lungs. Spiculated, noncalcified nodule in the left upper lobe has increased in size and now measures 3.3 x 3.4 x 2.4 cm, previously measured 2.7 x 2.4 x 2.4 cm (series 8, image 26 and series 4, image 15). Multiple additional subcentimeter nodules scattered in both lungs are stable, the largest in the left upper lobe has an average measurement of 5 mm (series 4, image 17). No focal consolidation. No pulmonary edema. No pulmonary parenchymal nodules or masses. Pleural spaces: Stable moderate left pleural effusion. Heart: Stable mild enlargement of the heart. Interval development of a small pericardial effusion. Esophagus: The esophagus is unremarkable. Mediastinal space: No mediastinal hematoma. No pneumomediastinum. Lymph nodes: No lymphadenopathy. Vasculature: Stable mild atherosclerotic calcifications in the visualized arteries. No evidence for aortic aneurysm or aortic dissection. Pulmonary arteries are unremarkable. Pulmonary veins are unremarkable. Diaphragm: Stable moderate hiatal hernia. Bones/joints: Mild degenerative changes in the visualized spine. No lytic or sclerotic bony lesions. Soft tissues: Surgical clips in the left axilla. 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 Brown would like this om 07/17/24 TECHNIQUE: Imaging protocol: Computed tomography of the abdomen and pelvis with contrast. Sagittal and coronal reformatted images were also reviewed. Radiation optimization: All CT scans at this facility use at least one of these dose optimization techniques: automated exposure control; mA and/or kV adjustment per patient size (includes targeted exams where dose is matched to clinical indication); or iterative reconstruction. Contrast material: OMNI 350; Contrast volume: 100 ml; Contrast route: INTRAVENOUS (IV); COMPARISON: CT chest abdpel w/*[id number] 05/12/2024 8:25 AM RADIATION DOSE METRICS: Total DLP (mGy-cm): 644.85 FINDINGS: Liver: The liver is unremarkable. Gallbladder and biliary ducts: The gallbladder is unremarkable. No biliary ductal dilatation. Pancreas: The pancreas is unremarkable. No pancreatic ductal dilatation. Spleen: Stable calcified granulomas in the spleen. Adrenal glands: The right and left adrenal glands are unremarkable. Kidneys and ureters: Simple cyst in the right kidney is stable in size measuring 1.7 cm. Stable subcentimeter hypodense foci in both right and left kidneys that are too small to characterize, however likely represent small cysts. The right and left ureters are unremarkable. Stomach and bowel: Stable moderate hiatal hernia. Numerous diverticula in the sigmoid colon, findings are stable. No evidence for diverticulitis. No acute abnormality in the stomach, small bowel, or colon. Appendix: The appendix is visualized and is unremarkable. No findings to suggest acute appendicitis. Intraperitoneal space: No free intraperitoneal air. No ascites. No loculated fluid collections to suggest an abscess. Stable minimal omental nodularity in the left lower quadrant. Vasculature: Stable mild atherosclerotic calcifications in the visualized arteries. No evidence for aortic aneurysm or aortic dissection. AtVeins: Hepatic veins, portal veins, splenic vein, and SMV are patent. Lymph nodes: No lymphadenopathy. Urinary bladder: The bladder is unremarkable for the degree of distension. Reproductive: Stable calcifications in the uterus that may represent small calcified intrauterine leiomyomas. The right and left ovaries are unremarkable. Bones/joints: Degenerative changes in the spine and hips. No lytic or sclerotic bony lesions. Soft tissues: Mild body wall edema. CT/CT chest abdpel w/*[id number] IMPRESSION: 1. Interval development of a small pericardial effusion. 2. Increase in size of a spiculated left upper lobe nodule. Multiple additional subcentimeter nodules scattered in both lungs are stable. Fleischner Society follow up recommendations for incidental nodules are not indicated. Follow up per the patient's medical condition. 3. Stable moderate left pleural effusion. 4. Stable moderate hiatal hernia. 5. Incidental/nonacute findings are listed in the report. IMPRESSION: 1. Mild body wall edema. 2. Stable minimal nodularity in the omentum of the left lower quadrant suggesting omental caking. 3. Stable moderate hiatal hernia. 4. Stable sigmoid diverticulosis. No evidence for diverticulitis. 5. Incidental/nonacute findings are listed in the report.
[2024-07-17] MEDS: iohexol 350 mg/mL 500 mL Btl (per mL) PO (12:09)
[2024-07-17] MEDS: iohexol 350 mg/mL 500 mL Btl (per mL) IV (12:10)
== END 2024-07-17 23:59 | disposition home or self-care (01) ==
PROVIDERS: Nurse Practitioner Family; PCP Family Medicine; Visit Provider Internal Medicine
DX: Z53.9 Procedure and treatment not carried out, unspecified reason; C34.92 Malignant neoplasm of unspecified part of left bronchus or lung; Z85.3 Personal history of malignant neoplasm of breast; K44.9 Diaphragmatic hernia without obstruction or gangrene; K57.32 Diverticulitis of large intestine without perforation or abscess without bleeding
CPT/HCPCS: 71260; 74177; 80053; 85025; 96372; 96375; 96377; 96413; 96523; 99213; J0897; J1100; J2506; J7050; J9305

== ENCOUNTER 2024-08-15 08:45 | Oncology outpatient (recurring) (ONCR) | payer MEDICARE, SELFPAY ==
[2024-07-24 09:44] LABS: Basophils # 0.1 10^3/uL (0.0-0.1); Basophils % 0.7 %; Eosinophils # 0.5 10^3/uL (0.0-0.8); Eosinophils % 5.1 %; Hematocrit 34.9 % (36-47); Lymphocytes # 1.3 10^3/uL (0.8-4.8); Lymphocytes % 14.4 %; Mean Corpuscular HGB Conc 30.9 g/dL (30-55); Mean Corpuscular Hemoglobin 33.1 pg (27-33); Mean Corpuscular Volume 107.1 fl (85-98); Mean Platelet Volume 9.6 fL (7.4-10.4); Monocytes % 10.5 %; Neutrophils % 68.6 %; Nucleated Red Blood Cells % 0 %; Platelet Count 318 10^3/cmm (157-399); Red Blood Count 3.26 10^6/uL (3.85-5.65); Red Cell Distribution Width 15.7 % (12.1-15.1); White Blood Count 9.03 10^3/uL (3.29-11.43)
[2024-07-24 10:09] LABS: Alanine Aminotransferase 14 U/L (0-33); Albumin Level 3.6 g/dL (3.5-5.2); Alkaline Phosphatase 137 U/L (35-105); Aspartate Amino Transferase 21 U/L (0-32); Blood Urea Nitrogen 15 mg/dL (8-23); Carbon Dioxide 22 mmol/L (22-29); Chloride 107 mmol/L (98-107); Creatinine Clr Calc Pharmacy 60.9017; Globulin 4.1 g/dL (1.3-4.6); Glucose 96 mg/dL (65-115); Osmolality Calculated 293 mOsm/kg (285-295); Sodium 141 mmol/L (136-145); Total Bilirubin 0.2 mg/dL (0.15-1.2); Total Protein 7.7 g/dL (6.6-8.7)
[2024-07-24] MEDS: dexamethasone 4 mg/mL INJ 5 mL 12 MG IVP (11:05)
[2024-07-24] MEDS: pemetrexed disodium 880 MG in sodium chloride 0.9% (100 ml) 100 ML 400 MG IV (11:25)
[2024-07-24] MEDS: pegfilgrastim 6 mg/0.6 mL Kit (onpro) SUBCUT (11:33)
[2024-07-24 11:51] VITALS: BP 133/80; PULSE 59; RESP 17; TEMP 36.6; O2SAT 98
--- NOTE | 2024-08-01 15:00 | USCV_ITS ---
Hannah Khoury Age: 74 Gender: F : 1950 Exam Date: 08/01/2024 15:07 Ordering Phys: Celine Yuan MD Technologist: DELVIS [place] [facility] [place]: rt leg pain HISTORY: RT leg pain PROCEDURES: Venous duplex imaging was performed in only the right lower extremity. The following venous structures were evaluated: common femoral vein, profunda vein, proximal portion of the greater saphenous vein, superficial femoral vein, and the popliteal vein. In addition, the posterior tibial and peroneal trunk were evaluated. FINDINGS: Normal 2-D Doppler and augmentation and compressibility throughout the lower extremity venous structures. Additional imaging through the proximal calf veins also reveals no thrombus. Limited evaluation of the greater saphenous vein is patent with no thrombus. CONCLUSIONS No DVT right lower extremity. Dr. Clara Brooks DO (Electronically Signed) Final Date: 01 Aug 2024 15:47 S
[2024-08-15 08:48] LABS: Basophils % 0.6 %; Eosinophils # 0.4 10^3/uL (0.0-0.8); Eosinophils % 5.3 %; Hematocrit 32.9 % (36-47); Lymphocytes # 0.9 10^3/uL (0.8-4.8); Lymphocytes % 12.7 %; Mean Corpuscular Hemoglobin 33.3 pg (27-33); Mean Corpuscular Volume 107.5 fl (85-98); Mean Platelet Volume 9.2 fL (7.4-10.4); Monocytes # 0.8 10^3/uL (0.2-0.9); Monocytes % 10.8 %; Neutrophils # 5.02 10^3/uL (1.8-7.7); Neutrophils % 70.2 %; Nucleated Red Blood Cells % 0 %; Platelet Count 321 10^3/cmm (157-399); Red Blood Count 3.06 10^6/uL (3.85-5.65); Red Cell Distribution Width 16.3 % (12.1-15.1); White Blood Count 7.15 10^3/uL (3.29-11.43)
[2024-08-15 09:04] LABS: Alanine Aminotransferase 16 U/L (0-33); Albumin Level 3.2 g/dL (3.5-5.2); Alkaline Phosphatase 125 U/L (35-105); Anion Gap 15.1 (5-19); Aspartate Amino Transferase 24 U/L (0-32); Blood Urea Nitrogen 14 mg/dL (8-23); Calcium 8.8 mg/dL (8.5-10.5); Carbon Dioxide 24 mmol/L (22-29); Chloride 105 mmol/L (98-107); Creatinine Clr Calc Pharmacy 61.2608; Globulin 3.9 g/dL (1.3-4.6); Glucose 93 mg/dL (65-115); Osmolality Calculated 290 mOsm/kg (285-295); Potassium 4.1 mmol/L (3.5-5.1); Sodium 140 mmol/L (136-145); Total Bilirubin 0.2 mg/dL (0.15-1.2); Total Protein 7.1 g/dL (6.6-8.7)
== END 2024-08-19 23:59 | disposition home or self-care (01) ==
PROVIDERS: Internal Medicine; PCP Family Medicine; Visit Provider Internal Medicine Medical Oncology
DX: Z53.9 Procedure and treatment not carried out, unspecified reason; C50.312 Malignant neoplasm of lower-inner quadrant of left female breast; Z17.0 Estrogen receptor positive status [ER+]; C34.12 Malignant neoplasm of upper lobe, left bronchus or lung; R21 Rash and other nonspecific skin eruption; R03.0 Elevated blood-pressure reading, without diagnosis of hypertension; Z87.891 Personal history of nicotine dependence; Z79.52 Long term (current) use of systemic steroids; M85.80 Other specified disorders of bone density and structure, unspecified site
CPT/HCPCS: 80053; 85025; 93971; 96375; 96377; 96413; 96416; 99214; J1100; J2506; J9305

== ENCOUNTER → 2024-08-18 09:06 | Outpatient (BNVA) | payer MEDICARE, SELFPAY | PROVIDERS: PCP Family Medicine; Visit Provider Nurse Practitioner Family | DX: L81.4 Other melanin hyperpigmentation (principal); D22.5 Melanocytic nevi of trunk; L30.9 Dermatitis, unspecified | CPT/HCPCS: 11104; 99203 ==

== ENCOUNTER → 2024-08-30 12:51 | Outpatient (BNVA) | payer MEDICARE, SELFPAY | PROVIDERS: PCP Family Medicine; Visit Provider Nurse Practitioner Family | DX: L27.0 Generalized skin eruption due to drugs and medicaments taken internally (principal) | CPT/HCPCS: 99214 ==

== ENCOUNTER 2024-09-04 13:00 | Emergency (ER) | payer MEDICARE, SELFPAY ==
--- NOTE | 2024-09-04 13:09 | XRR_ITS ---
PROCEDURE INFORMATION: Exam: XR Chest Exam date and time: 09/04/2024 1:19 PM Age: 74 years old Clinical indication: Fever TECHNIQUE: Imaging protocol: Radiologic exam of the chest. Views: 1 view. COMPARISON: CT chest abdpel w/*[id number] 07/17/2024 12:04 PM FINDINGS: Lungs: Left apical mass again noted with comparison of size limited by change in modality. Other smaller nodules and irregular opacities throughout both lungs greatest in the periphery in the mid to upper portion of the chest also again seen. Areas of coarsened reticular markings again seen. Pleural spaces: Small bilateral pleural effusions. Heart/Mediastinum: Cardiomediastinal contours accentuated by low lung volumes and AP technique. Bones/joints: Moderate degenerative change present in the spine. Features of right calcific tendinitis of the rotator cuff. Soft tissues: Surgical clips in the left chest wall region. XR/XR chest 1V portable [id number] IMPRESSION: No definite acute pathology although given complexity of pulmonary abnormalities, CT could be performed for more detailed comparison with the prior study. Small bilateral pleural effusions, nodules and irregular opacities also seen on prior CT.
[2024-09-04 13:14] VITALS: BP 155/67; PULSE 89; RESP 17; TEMP 36.9; O2SAT 95; BMI 23.9
--- NOTE | 2024-09-04 16:04 | ED_ITS ---
HPI - Fever 2 General: Chief Complaint: Fever Stated Complaint: fever, Dr Yuan sent Time Seen by Provider: 09/04/24 15:56 Source: patient Mode of arrival: ambulatory Limitations: no limitations History of Present Illness: 74-year-old female who has stage IV lung cancer she is currently on chemotherapy states that through the weekend. She states it was 101 last night she is afebrile here. States she has had some mild weakness but otherwise been feeling okay she denies any cough denies any dysuria she had no vomiting or diarrhea denies any pain anywhere. Associated symptoms: Deny abdominal pain, chills, chest pain, diarrhea, dysuria, headache(s), nausea or vomiting Related Data Home Medications ?Medication ?Instructions ?Recorded ?Confirmed calcium carbonate 500 mg PO DAILY PRN Heartbur n 12/10/21 08/22/24 cholecalciferol (vitamin D3) 75 75 mcg PO DAILY 08/22/24 mcg (3,000 unit) tablet esomeprazole magnesium 20 mg 20 mg PO DAILY 12/10/21 0 08/22/24 capsule,delayed release (Nexium) denosumab 60 mg/mL subcutaneous 60 mg SUBCUT [id number] 02/18/24 08/22/24 syringe (Prolia) folic acid 1 mg tablet 1 mg PO DAILY 02/22/2408/22 ondansetron 8 mg disintegrating 8 mg PO Q8H PRN Nausea And Vomiting 02/22/24 08/22/24 tablet anastrozole 1 mg tablet 1 mg PO DAILY 03/24/2408/22 Previous Rx's ?Medication ?Instructions ?Recorded promethazine-DM 6.25 mg-15 mg/5 mL 5 ml PO Q4H PRN cou gh #118 mL 01/21/24 oral syrup albuterol sulfate 2.5 mg/3 mL 2.5 mg (3 mL) inhalation QID PRN 02/18/24 (0.083 %) solution for nebulization shortness of breat h or wheezing #1,080 mL albuterol sulfate 90 mcg/actuation 2 puff inhalation Q ID PRN 02/18/24 aerosol inhaler shortness of breath or wheez ing #8.5 grams lorazepam 0.5 mg tablet 0.5 mg PO TID PRN severe hermelindo sea 02/22/24 #30 tabs prochlorperazine maleate 10 mg 10 mg PO Q6H PRN nausea and 02/22/24 tablet (Compazine) vomiting #60 tabs prednisone 10 mg tablet 10 mg PO DIRECTED #30 tab s 08/15/24 triamcinolone acetonide 0.1 % 1 applic topical TID PRN itching 08/22/24 topical cream #15 grams amoxicillin 500 mg-potassium 1 tab PO BID #14 tabs clavulanate 125 mg tablet (Augmentin) Allergies Allergy/AdvReac Type Severity Reaction Status Date / Time No Known Allergies Allergy Verified 08/22/24 09:16 Review of Systems 2 Const: Reports: fever(s); Denies: chills, body aches or change in appetite Eyes: Denies: blurry vision or eye discomfort ENMT: Denies: throat pain or dental pain Card: Denies: chest pain Resp: Denies: dyspnea GI: Denies: abdominal pain, nausea, vomiting or diarrhea : Denies: dysuria Musc: Denies: neck pain or back pain Skin/Breast: Denies: rash Neuro: Denies: headache(s) PFSH ED 2 PFSH: Medical History Osteoporosis osteoporosis on DEXA in past, treated w/ Prolia Metastatic primary lung cancer adenocarcinoma; mets to liver, omentum, supraclavicular lymph nodes; Dr. Arnold at for onc and Dr. Brown for local onc--to be starting chemo Osteopenia Breast cancer L breast--just had radiation and anastrazole GERD (gastroesophageal reflux disease) Vitamin D deficiency Surgical History History of lung biopsy bronchoscopy bx IDRIS 11.6.24 H/O vein stripping bilateral History of lumpectomy of left breast (05/04/19) Left breast lumpectomy with axillary sentinel lymph node biopsy History of bunionectomy of right great toe Family History Sister Cancer breast Family/Other Cancer Breast, brain Mother Dementia Hypertension Other Diabetes Suicide Denies family history of CAD (coronary artery disease) Clotting disorder Hyperlipidemia Psychiatric illness Chronic kidney disease (CKD) Anesthesia complication Bleeding disorder Lung disease Stroke Social History Smoking and tobacco/nicotine status: former use of tobacco/nicotine Quit status (tobacco/nicotine): has quit using Year quit tobacco: 1976 Former quit date comment: approx. 7 years Alcohol intake: current Alcohol intake frequency: holidays/special occasions only Substance/Drug Use: never Household members: spouse Marital status: Number of children: 3 Highest education level completed: Master's Degree Current occupational status: retired Previous occupational history: teacher and still teaches Physical Exam 2 Const: COMMON NORMALS: no acute distress, patient oriented x3 and healthy appearing HENMT: COMMON NORMALS: normocephalic and atraumatic HEAD & SCALP: n ormocephalic and atraumatic Neck/C-Spine: COMMON NORMALS: full ROM and supple Chest: COMMONS NORMALS: normal inspection of the chest Resp: COMMON NORMALS: normal respiratory effort, No retractions, No use of accessory muscles and clear to auscultation bilaterally AUSCULTATION: clear to auscultation bilaterally Cardio: COMMON NORMALS: regular rate, regular rhythm and No murmurs present (Cardio) RATE: regular rate RHYTHM: regular rhythm GI: COMMON NORMALS: Normal to inspection, nondistended, normoactive bowel sounds present, Soft to palpation, non-tender and no masses PALPATION: Yes Soft to palpation Extremity: COMMON NORMALS: normal to inspection and full ROM Neuro: COMMON NORMALS: patient oriented x3, moves all extremities and no focal motor deficits Psych: COMMON NORMALS: mental status grossly normal, Normal thought process present and cooperative THOUGHT PROCESS: Normal thought process present Skin: COMMON NORMALS: no rashes or lesions noted and no wounds GENERAL SKIN EXAM: no rashes or lesions noted Course 2 Vital Signs: Vital signs: Vital Signs Temperature 98.4 F 09/04/24 13:14 Pulse Rate 89 09/04/24 13:14 Respiratory Rate 17 09/04/24 13:14 Blood Pressure 155/67 09/04/24 13:14 Pulse Oximetry 95 09/04/24 13:14 Oxygen Delivery Me thod Room Air 09/04/24 13:14 MDM - Fever Medical Decision Making Patient presents here with fever she is afebrile here she is not neutropenic did speak to her oncologist will follow blood culture she stable for discharge will start on Augmentin return if worsening. Medical Records I reviewed the patient's medical records. Lab Data I reviewed the patient's lab results. 09/04/24 16:55 09/04/24 16:55 Radiology Impressions Chest X-Ray 09/04/24 13:09 IMPRESSION: No definite acute pathology although given complexity of pulmonary abnormalities, CT could be performed for more detailed comparison with the prior study. Small bilateral pleural effusions, nodules and irregular opacities also seen on prior CT. Laboratory Results WBC 7.29 10^3/uL (3.29-11.43) 09/04/24 16:55 RBC 2.90 10^6/uL (3.85-5.65) L 09/04/24 16:55 Hgb 9.70 g/dL (11.27-16.99) L 09/04/24 16:55 Hct 30.7 % (36-47) L 09/04/24 16:55 MCV 105.9 fl (85-98) H 09/04/24 16:55 MCH 33.4 pg (27-33) H 09/04/24 16:55 MCHC 31.6 g/dL (30-55) 09/04/24 16:55 RDW 14.8 % (12.1-15.1) 09/04/24 16:55 Plt Count 153 10^3/cmm (157-399) L 09/04/24 16:55 MPV 10.2 fL (7.4-10.4) 09/04/24 16:55 Neut % (Auto) 81.5 % 09/04/24 16:55 Lymph % (Auto) 7.5 % 09/04/24 16:55 [place] % (Auto) 7.7 % 09/04/24 16:55 Eos % (Auto) 1.9 % 09/04/24 16:55 Baso % (Auto) 0.4 % 09/04/24 16:55 Neut # (Auto) 5.94 10^3/uL (1.8-7.7) 09/04/24 16:55 Lymph # (Auto) 0.6 10^3/uL (0.8-4.8) L 09/04/24 16:55 [place] # (Auto) 0.6 10^3/uL (0.2-0.9) 09/04/24 16:55 Eos # (Auto) 0.1 10^3/uL (0.0-0.8) 09/04/24 16:55 Baso # (Auto) 0.0 10^3/uL (0.0-0.1) 09/04/24 16:55 Nucleated RBC % (auto) 0 % 09/04/24 16:55 Nucleated RBCs # 0.0 /100WBC 09/04/24 16:55 Sodium 135 mmol/L (136-145) L 09/04/24 16:55 Potassium 3.9 mmol/L (3.5-5.1) 09/04/24 16:55 Chloride 102 mmol/L (98-107) 09/04/24 16:55 Carbon Dioxide 19 mmol/L (22-29) L 09/04/24 16:55 Anion Gap 17.9 (5-19) 09/04/24 16:55 BUN 19 mg/dL (8-23) 09/04/24 16:55 Creatinine 0.8 mg/dL (0.5-0.9) 09/04/24 16:55 GFR Calculation Not Reportable 09/04/24 16:55 Glucose 87 mg/dL (65-115) 09/04/24 16:55 Calculated Osmolality 282 mOsm/kg (285-295) L 09/04/24 16:55 Calcium 8.5 mg/dL (8.5-10.5) 09/04/24 16:55 AST 26 U/L (0-32) 09/04/24 16:55 ALT 18 U/L (0-33) 09/04/24 16:55 Alkaline Phosphatase 112 U/L (35-105) H 09/04/24 16:55 Total Protein 7.5 g/dL (6.6-8.7) 09/04/24 16:55 Albumin 3.1 g/dL (3.5-5.2) L 09/04/24 16:55 Globulin 4.4 g/dL (1.3-4.6) 09/04/24 16:55 Urine Color Yellow (Yellow) 09/04/24 16:18 Urine Appearance Clear (CLEAR) 09/04/24 16:18 Urine pH 6.0 (5-7) 09/04/24 16:18 Ur Specific Milo 1.018 (1.005-1.030) 09/04/24 16:18 Urine Protein Trace (Negative) A 09/04/24 16:18 Urine Glucose (UA) Negative (Normal) 09/04/24 16:18 Urine Ketones Trace (Negative) 09/04/24 16:18 Urine Blood Negative (Negative) 09/04/24 16:18 Urine Nitrate Negative (Negative) 09/04/24 16:18 Urine Bilirubin Negative (Negative) 09/04/24 16:18 Urine Urobilinogen 0.2 mg/dL (Negative) 09/04/24 16:18 Ur Leukocyte Esterase Negative (Negative) 09/04/24 16:18 Urine RBC 0-2 /hpf (0-2) 09/04/24 16:18 Urine WBC 6-10 /hpf (0-5) 09/04/24 16:18 Ur Squamous Epith Cells 0-5 /hpf (0-5) 09/04/24 16:18 Amorphous Sediment Not Reportable 09/04/24 16:18 Urine Bacteria None seen /hpf (NONE) 09/04/24 16:18 Hyaline Casts 2.87 /lpf 09/04/24 16:18 All radiology interpretation(s) finalized by discharge Discharge Plan Discharge Patient Disposition: Home Clinical Impression: Fever of unknown origin Condition: Stable Prescriptions: New amoxicillin-pot clavulanate [Augmentin] 500-125 mg tablet 1 tab PO BID Qty: 14 0RF No Action cholecalciferol (vitamin D3) 75 mcg (3,000 unit) tablet 75 mcg PO DAILY esomeprazole magnesium [Nexium] 20 mg capsule,delayed release(DR/EC) 20 mg PO DAILY calcium carbonate 500 mg calcium (1,250 mg) tablet,chewable 500 mg PO DAILY PRN (Reason: Heartburn) albuterol sulfate 2.5 mg /3 mL (0.083 %) solution for nebulization 2.5 mg inhalation QID PRN (Reason: shortness of breath or wheezing) Qty: 1080 3RF albuterol sulfate 90 mcg/actuation HFA aerosol inhaler 2 puff inhalation QID PRN (Reason: shortness of breath or wheezing) Qty: 8.5 5RF Prolia 60 mg/mL syringe 60 mg SUBCUT .[id number] promethazine-DM 6.25-15 mg/5 mL syrup 5 ml PO Q4H PRN (Reason: cough) Qty: 118 0RF Rx Instructions: Do not exceed more than 30ml/24hour period (6 doses) prednisone 10 mg tablet 10 mg PO DIRECTED Qty: 30 0RF Rx Instructions: see taper instructions ondansetron 8 mg tablet,disintegrating 8 mg PO Q8H PRN (Reason: Nausea And Vomiting) folic acid 1 mg tablet 1 mg PO DAILY prochlorperazine maleate [Compazine] 10 mg tablet 10 mg PO Q6H PRN (Reason: nausea and vomiting) Qty: 60 2RF lorazepam 0.5 mg tablet 0.5 mg PO TID PRN (Reason: severe nausea) Qty: 30 3RF Rx Instructions: 1/2 to 1 tablet as needed for severe nausea. triamcinolone acetonide 0.1 % cream 1 applic topical TID PRN (Reason: itching) Qty: 15 0RF anastrozole 1 mg tablet 1 mg PO DAILY Rx Instructions: TAKE 1 TABLET BY MOUTH EVERY DAY Discharge Orders: Discharge ED (Routine); Ordered 09/04/24 Ordered By: Soila Urbina Referrals: Angelina Neely MD [Primary Care Provider, Family Practice] - 1-3 days Discharge Diet: Advance as tolerated Discharge Activity: Resume usual activity Patient Instructions: Fever in Adults (ED) Print Language: Kyrgyz Coding Level of Care Code ED Liquor Commissioner for Yamila Rodríguez
[2024-09-04 17:12] LABS: Bilirubin Urine Negative (Negative); Blood Urine Negative (Negative); Glucose Urine UA Negative (Normal); Ketones Urine Trace (Negative); Leukocyte Esterase Urine Negative (Negative); Nitrate Urine Negative (Negative); Protein Urine Trace (Negative); Specific Gravity, Urine 1.018 (1.005-1.030); Urine Appearance Clear (CLEAR); Urine Color Yellow (Yellow); Urobilinogen Urine 0.2 mg/dL (Negative)
[2024-09-04 17:14] LABS: Basophils % 0.4 %; Eosinophils # 0.1 10^3/uL (0.0-0.8); Eosinophils % 1.9 %; Hematocrit 30.7 % (36-47); Lymphocytes # 0.6 10^3/uL (0.8-4.8); Lymphocytes % 7.5 %; Mean Corpuscular HGB Conc 31.6 g/dL (30-55); Mean Corpuscular Hemoglobin 33.4 pg (27-33); Mean Corpuscular Volume 105.9 fl (85-98); Mean Platelet Volume 10.2 fL (7.4-10.4); Monocytes # 0.6 10^3/uL (0.2-0.9); Monocytes % 7.7 %; Neutrophils # 5.94 10^3/uL (1.8-7.7); Neutrophils % 81.5 %; Nucleated Red Blood Cells % 0 %; Platelet Count 153 10^3/cmm (157-399); Red Cell Distribution Width 14.8 % (12.1-15.1); White Blood Count 7.29 10^3/uL (3.29-11.43)
[2024-09-04 17:35] LABS: Add Urine Microscopic? YES; Bacteria Urine None Seen /hpf; Hyaline Casts Urine 2.87 /lpf; RBC Urine 0-2 /hpf (0-2); Squamous Epithelial Cell Urine 0-5 /hpf (0-5)
[2024-09-04 17:36] LABS: Alanine Aminotransferase 18 U/L (0-33); Albumin Level 3.1 g/dL (3.5-5.2); Alkaline Phosphatase 112 U/L (35-105); Anion Gap 17.9 (5-19); Aspartate Amino Transferase 26 U/L (0-32); Blood Urea Nitrogen 19 mg/dL (8-23); Calcium 8.5 mg/dL (8.5-10.5); Carbon Dioxide 19 mmol/L (22-29); Chloride 102 mmol/L (98-107); Globulin 4.4 g/dL (1.3-4.6); Glucose 87 mg/dL (65-115); Osmolality Calculated 282 mOsm/kg (285-295); Potassium 3.9 mmol/L (3.5-5.1); Sodium 135 mmol/L (136-145); Total Protein 7.5 g/dL (6.6-8.7)
[2024-09-04] MEDS: amoxicillin-clav 875-125 mg Tablet 1 TAB PO (17:54)
[2024-09-04 18:14] LABS: Total Bilirubin 0.2 mg/dL (0.15-1.2)
[2024-09-04 18:22] VITALS: BP 135/61; PULSE 79; RESP 16; O2SAT 98
== END 2024-09-04 18:08 | disposition home or self-care (01) ==
PROVIDERS: Emergency Provider Emergency Medicine; PCP Family Medicine
DX: R50.9 Fever, unspecified (principal); Z87.891 Personal history of nicotine dependence; Z85.3 Personal history of malignant neoplasm of breast
CPT/HCPCS: 36415; 71045; 80053; 81001; 85025; 87040; 96374; 99284; J1642; J9999

== ENCOUNTER 2024-09-14 15:30 | Oncology outpatient (recurring) (ONCR) | payer MEDICARE, SELFPAY ==
[2024-08-22 09:12] LABS: Basophils % 0.5 %; Eosinophils # 0.2 10^3/uL (0.0-0.8); Eosinophils % 2.6 %; Hematocrit 34.1 % (36-47); Lymphocytes # 1.5 10^3/uL (0.8-4.8); Mean Corpuscular HGB Conc 31.4 g/dL (30-55); Mean Corpuscular Hemoglobin 33.4 pg (27-33); Mean Corpuscular Volume 106.6 fl (85-98); Mean Platelet Volume 9.5 fL (7.4-10.4); Monocytes % 11.9 %; Neutrophils % 66.6 %; Nucleated Red Blood Cells % 0 %; Platelet Count 240 10^3/cmm (157-399); Red Cell Distribution Width 15.9 % (12.1-15.1)
[2024-08-22 09:35] LABS: Alanine Aminotransferase 16 U/L (0-33); Albumin Level 3.6 g/dL (3.5-5.2); Alkaline Phosphatase 96 U/L (35-105); Anion Gap 12.8 (5-19); Aspartate Amino Transferase 17 U/L (0-32); Blood Urea Nitrogen 16 mg/dL (8-23); Calcium 9.4 mg/dL (8.5-10.5); Carbon Dioxide 26 mmol/L (22-29); Chloride 104 mmol/L (98-107); Globulin 4.2 g/dL (1.3-4.6); Glucose 85 mg/dL (65-115); Osmolality Calculated 288 mOsm/kg (285-295); Potassium 3.8 mmol/L (3.5-5.1); Sodium 139 mmol/L (136-145); Total Bilirubin 0.2 mg/dL (0.15-1.2); Total Protein 7.8 g/dL (6.6-8.7)
[2024-08-22] MEDS: sodium chloride 0.9% 250 ML 75 ML IV (11:16)
[2024-08-22] MEDS: dexamethasone 4 mg/mL INJ 5 mL 12 MG IVP (11:16)
[2024-08-22] MEDS: PEMETREXED DISODIUM IV (11:43)
[2024-08-22] MEDS: [UNRECOGNIZED DRUG - OTHER] IV (11:43)
[2024-08-22] MEDS: pegfilgrastim 6 mg/0.6 mL Kit (onpro) SUBCUT (12:08)
[2024-08-22 12:16] VITALS: BP 161/75; PULSE 61; RESP 18; TEMP 36.6; O2SAT 98
[2024-09-12 08:56] LABS: Basophils % 0.5 %; Eosinophils # 0.4 10^3/uL (0.0-0.8); Eosinophils % 4.9 %; Lymphocytes # 0.9 10^3/uL (0.8-4.8); Lymphocytes % 10.9 %; Mean Corpuscular HGB Conc 31.6 g/dL (30-55); Mean Corpuscular Hemoglobin 32.7 pg (27-33); Mean Corpuscular Volume 103.6 fl (85-98); Monocytes # 0.8 10^3/uL (0.2-0.9); Monocytes % 9.8 %; Neutrophils # 6.06 10^3/uL (1.8-7.7); Neutrophils % 73.5 %; Nucleated Red Blood Cells % 0 %; Platelet Count 383 10^3/cmm (157-399); Red Blood Count 3.09 10^6/uL (3.85-5.65); Red Cell Distribution Width 14.6 % (12.1-15.1); White Blood Count 8.24 10^3/uL (3.29-11.43)
[2024-09-12 09:13] LABS: Alanine Aminotransferase 13 U/L (0-33); Albumin Level 3.2 g/dL (3.5-5.2); Alkaline Phosphatase 107 U/L (35-105); Anion Gap 16.1 (5-19); Aspartate Amino Transferase 23 U/L (0-32); Blood Urea Nitrogen 23 mg/dL (8-23); Calcium 8.9 mg/dL (8.5-10.5); Carbon Dioxide 23 mmol/L (22-29); Chloride 103 mmol/L (98-107); Globulin 4.4 g/dL (1.3-4.6); Glucose 109 mg/dL (65-115); Osmolality Calculated 290 mOsm/kg (285-295); Potassium 4.1 mmol/L (3.5-5.1); Sodium 138 mmol/L (136-145); Total Bilirubin 0.2 mg/dL (0.15-1.2); Total Protein 7.6 g/dL (6.6-8.7)
[2024-09-12] MEDS: sodium chloride 0.9% 250 ML 75 ML IV (10:53)
[2024-09-12] MEDS: acetaminophen 325 mg Tablet 650 MG PO (10:54)
[2024-09-12] MEDS: dexamethasone 4 mg/mL INJ 5 mL 12 MG IVP (10:54)
[2024-09-12] MEDS: diphenhydrAMINE 25 mg Capsule 50 MG PO (11:04)
[2024-09-12] MEDS: SODIUM CHLORIDE 0.9% IV (11:51)
[2024-09-12] MEDS: PEMETREXED DISODIUM IV (11:51)
[2024-09-12] MEDS: pegfilgrastim 6 mg/0.6 mL Kit (onpro) SUBCUT (12:23)
[2024-09-12 12:33] VITALS: BP 122/69; PULSE 65; RESP 18; TEMP 36.6; O2SAT 96
--- NOTE | 2024-09-14 14:11 | CTR_ITS ---
PROCEDURE INFORMATION: Exam: CT Chest With Contrast; Diagnostic Exam date and time: 09/14/2024 2:57 PM Age: 74 years old Clinical indication: Condition or disease; Lung condition and disease; Cancer of the lung; Bilateral; Unspecified; Primary cancer: Lung with mets; Prior surgery; Surgery date: 6+ months; Surgery type: Port, left breast; Cancer (type)--breast, lung, liver; Additional info: Adenocarcinoma of L lung TECHNIQUE: Imaging protocol: Diagnostic computed tomography of the chest with contrast. Radiation optimization: All CT scans at this facility use at least one of these dose optimization techniques: automated exposure control; mA and/or kV adjustment per patient size (includes targeted exams where dose is matched to clinical indication); or iterative reconstruction. Contrast material: OMNI 350; Contrast volume: 100 ml; Contrast route: INTRAVENOUS (IV); COMPARISON: CT chest abdpel w/*[id number] 07/17/2024 12:04 PM RADIATION DOSE METRICS: Total DLP (mGy-cm): 669.13 FINDINGS: Tubes, catheters and devices: Right chest wall port tip terminates in the right atrium. Lungs: Lobulated and spiculated left upper lobe mass measures 3.4 x 3.2 cm, previously 2.8 x 2.7 cm. Multiple additional subcentimeter nodules are grossly stable from prior including a 5 mm satellite nodule in the left upper lobe (series 3, image 16). Pleural spaces: Moderate left and small right pleural effusions, slightly increased from prior. Heart: Stable small pericardial effusion. Coronary arteries: Mild coronary artery calcification. Lymph nodes: Status post left axillary lymph node dissection. Similar left breast calcifications. Vasculature: Unremarkable. No aortic aneurysm. Diaphragm: Moderate hiatal hernia. Bones/joints: Moderate degenerative changes of the spine. Soft tissues: See Lymph nodes finding. PROCEDURE INFORMATION: Exam: CT Abdomen And Pelvis With Contrast Exam date and time: 09/14/2024 2:57 PM Age: 74 years old Clinical indication: Condition or disease; Lung condition and disease; Cancer of the lung; Bilateral; Unspecified; Primary cancer: Lung with mets; Prior surgery; Surgery date: 6+ months; Surgery type: Port, left breast; Cancer (type)--breast, lung, liver; Additional info: Adenocarcinoma of L lung TECHNIQUE: Imaging protocol: Computed tomography of the abdomen and pelvis with contrast. Radiation optimization: All CT scans at this facility use at least one of these dose optimization techniques: automated exposure control; mA and/or kV adjustment per patient size (includes targeted exams where dose is matched to clinical indication); or iterative reconstruction. Contrast material: OMNI 350; Contrast volume: 100 ml; Contrast route: INTRAVENOUS (IV); COMPARISON: CT chest abdpel w/*[id number] 05/12/2024 8:25 AM RADIATION DOSE METRICS: Total DLP (mGy-cm): 669.13 FINDINGS: Liver: Normal appearance of the liver. Gallbladder and biliary ducts: No calcified stones or ductal dilation. Pancreas: No ductal dilation. Spleen: Unremarkable. Adrenal glands: Unremarkable. Kidneys and ureters: Scattered low density foci in the kidneys, too small to accurately characterize but statistically favored benign. No hydronephrosis Stomach and bowel: Colonic diverticulosis without diverticulitis. No mucosal thickening. No obstruction. Appendix: No evidence of appendicitis. Intraperitoneal space: Previously described nodularity in the left lower quadrant omentum is not well visualized on this exam. Vasculature: Moderate atherosclerotic calcifications. Lymph nodes: No enlarged lymph nodes. Urinary bladder: Unremarkable as visualized. Reproductive: Unremarkable as visualized. Bones/joints: Unremarkable. No acute fracture. Soft tissues: Unremarkable. CT/CT chest [facility] w/*[id number] IMPRESSION: 1. Increased size of left upper lobe mass, concerning for worsening malignancy. 2. Increased small of now moderate left and small right pleural effusions. 3. Stable small pericardial effusion. 4. Multiple additional subcentimeter nodules are grossly stable from prior. IMPRESSION: Previously described nodularity in the left lower quadrant omentum is not well visualized on this exam. No definite evidence of metastatic disease in the abdomen or pelvis.
[2024-09-14] MEDS: iohexol 350 mg/mL 500 mL Btl (per mL) IV (15:08)
--- NOTE | 2024-09-14 15:08 | MR_ITS ---
WS: [id number] MRI HEAD WITH CONTRAST TECHNIQUE: Sagittal T1, T2 axial, T2 axial FLAIR, axial susceptibility weighted imaging, axial diffusion weighted images, and coronal T2 images were obtained. Pre and post-T1 axial and post T1 coronal images. ADC and FSPGR images. CLINICAL INFORMATION: ADENOCARCINOMA OF LEFT LUNG COMPARISON: MRI 05/30/2024 FINDINGS: No evidence of enhancing intracranial metastatic disease. No evidence of mass or mass effect. No restricted diffusion to suggest acute ischemia. Mild small vessel changes. Mild parenchymal volume loss. Normal posterior fossa. Normal vascular flow voids at the skull base. No extra- axial fluid collections. No evidence of mass or mass effect. Mild mucosal thickening in the paranasal sinuses. Mastoid air cells are well aerated. No hemosiderin on the susceptibility weighted images. MR/MR head wo/w con [id number] IMPRESSION: 1. No evidence of restricted diffusion to suggest acute ischemia. 2. Mild small vessel changes with mild parenchymal volume loss. 3. No evidence of enhancing intracranial metastatic disease. 4. No hemosiderin on susceptibility-weighted images. 5. No other acute findings.
[2024-09-14] MEDS: gadobenate dimeglumine 20 mL vial 14 ML IV (15:29)
== END 2024-09-14 16:38 | disposition home or self-care (01) ==
PROVIDERS: Nurse Practitioner Family; PCP Family Medicine; Visit Provider Internal Medicine
DX: C34.12 Malignant neoplasm of upper lobe, left bronchus or lung; R93.0 Abnormal findings on diagnostic imaging of skull and head, not elsewhere classified; J34.89 Other specified disorders of nose and nasal sinuses; J90 Pleural effusion, not elsewhere classified; I31.39 Other pericardial effusion (noninflammatory); R91.8 Other nonspecific abnormal finding of lung field; Z96.89 Presence of other specified functional implants; I25.10 Atherosclerotic heart disease of native coronary artery without angina pectoris; R59.0 Localized enlarged lymph nodes; R92.1 Mammographic calcification found on diagnostic imaging of breast; K44.9 Diaphragmatic hernia without obstruction or gangrene; M47.9 Spondylosis, unspecified; N28.9 Disorder of kidney and ureter, unspecified; K57.30 Diverticulosis of large intestine without perforation or abscess without bleeding; I70.0 Atherosclerosis of aorta; Z53.9 Procedure and treatment not carried out, unspecified reason
CPT/HCPCS: 70553; 71260; 74177; 80053; 85025; 96365; 96374; 96375; 96377; 96401; 96413; 99214; A9577; J1100; J2506; J7050; J9305; J9999

== ENCOUNTER 2024-10-13 08:45 | Oncology outpatient (recurring) (ONCR) | payer MEDICARE, SELFPAY ==
--- NOTE | 2024-09-29 07:04 | USCV_ITS ---
Hannah Khoury Age: 74 Gender: F : 1950 Exam Date: 09/29/2024 07:18 Ordering Phys: Darrin Brown MD Technologist: NUBIA [place]am [place] [facility] [place]ication: Pleural Effusion BP: 120 / 70 HR: 78 Rhythm: Sinus Technical Quality: Adequate MEASUREMENTS (Male / Female) Normal Values 2D ECHO LV Diastolic Diameter PLAX 4.3 cm 4.2 - 5.9 / 3.9 - 5.3 cm IVS Diastolic Thickness 0.9 cm 0.6 - 1.0 / 0.6 - 0.9 cm IVS Systolic Thickness 1.8 cm LVPW Diastolic Thickness 1.3 cm 0.6 - 1.0 / 0.6 - 0.9 cm LVPW Systolic Thickness 1.8 cm LVOT Diameter 1.9 cm LV Ejection Fraction 2D Teich 53.8 % LV Ejection Fraction MOD 4C 60.2 % LV Ejection Fraction MOD 2C 49.4 % LV Ejection Fraction 2C AL 51.0 % LA Diameter 2.7 cm RA Systolic Volume 4C AL 26.8 ml RA Systolic Volume 4C MOD 26.1 ml LA Sys Volume AL 35.4 cm cubed LA Sys Volume Index AL 20.3 cm cubed/m squared Aorta at Sinotubular Diameter 2.5 cm IVC Diameter 2.3 cm M-MODE LA Ao Ratio MM 1.3 AV Cusp Separation MM 1.5 cm DOPPLER AV Peak Velocity 140.0 cm/s LVOT Peak Velocity 136.0 cm/s AV Area Cont Eq vti 2.9 cm squared AV Area Cont Eq pk 2.8 cm squared MV Peak Velocity 98.0 cm/s MV Area PHT 3.4 cm squared Mitral E to A Ratio 0.8 TV Peak E Velocity 69.0 cm/s PV Peak Velocity 117.0 cm/s FINDINGS Left Ventricle Technically limited quality echocardiogram because of poor ultrasonic windows. Left ventricle is normal in size. LV systolic function is normal with EF of 55-60%. No regional wall motion abnormalities are seen. Right Ventricle Normal in size and function Right Atrium Normal in size Left Atrium Normal in size Mitral Valve Grossly normal. Mild mitral regurgitation Aortic Valve Grossly normal. No significant stenosis or regurgitation. Tricuspid Valve Insufficient TR jet to calculate RVSP. Pulmonic Valve Mild pulmonic regurgitation. Pericardium Pleural effusion seen Aorta Normal in size IVC Appears to be dilated CONCLUSIONS Technically limited quality echocardiogram because of poor ultrasonic windows. LV systolic function is normal with EF of 55-60%. Mild mitral regurgitation. Mild pulmonic regurgitation. Pleural effusion seen. IVC appears to be dilated. Zaid Ayala MD (Electronically Signed) Final Date: 04 October 2024 11:44 S
[2024-10-03 09:22] LABS: Hematocrit 33.3 % (36-47); Hemoglobin 10.40 g/dL (11.27-16.99); Mean Corpuscular HGB Conc 31.2 g/dL (30-55); Mean Corpuscular Hemoglobin 32.8 pg (27-33); Mean Corpuscular Volume 105.0 fl (85-98); Nucleated Red Blood Cells % 0 %; Platelet Count 409 10^3/cmm (157-399); Red Blood Count 3.17 10^6/uL (3.85-5.65); White Blood Count 10.73 10^3/uL (3.29-11.43)
[2024-10-03 09:35] LABS: Alanine Aminotransferase 23 U/L (0-33); Albumin Level 3.1 g/dL (3.5-5.2); Alkaline Phosphatase 126 U/L (35-105); Anion Gap 14.9 (5-19); Aspartate Amino Transferase 26 U/L (0-32); Blood Urea Nitrogen 23 mg/dL (8-23); Calcium 9.0 mg/dL (8.5-10.5); Carbon Dioxide 24 mmol/L (22-29); Chloride 103 mmol/L (98-107); Creatinine Clr Calc Pharmacy 53.0187; Globulin 4.1 g/dL (1.3-4.6); Glucose 107 mg/dL (65-115); Osmolality Calculated 290 mOsm/kg (285-295); Potassium 3.9 mmol/L (3.5-5.1); Sodium 138 mmol/L (136-145); Total Protein 7.2 g/dL (6.6-8.7)
[2024-10-03] MEDS: dexamethasone 4 mg/mL INJ 5 mL 12 MG IVP (11:35)
[2024-10-03] MEDS: cyanocobalamin 1,000 mcg/mL SDV 1000 MCG IM (11:43)
[2024-10-03] MEDS: SODIUM CHLORIDE 0.9% IV (12:18)
[2024-10-03] MEDS: PEMETREXED DISODIUM IV (12:18)
[2024-10-03] MEDS: pegfilgrastim 6 mg/0.6 mL Kit (onpro) SUBCUT (12:48)
[2024-10-03 12:57] VITALS: BP 128/77; PULSE 76; RESP 17; TEMP 37.1; O2SAT 93
--- NOTE | 2024-10-03 12:58 | XR_ITS ---
WS: [id number] XR chest 2V* [id number] REASON FOR EXAM: cough, SOB FINDINGS: Chest is essentially unchanged compared to 09/04/2024. Chemotherapy port in place over the right chest with trans right internal jugular infusion catheter to the distal SVC level. Bilateral pleural effusions, larger on the left. Bilateral diffuse coarse reticular interstitial lung opacities. Ill-defined mass in the left upper lung. XR/XR chest 2V* [id number] IMPRESSION: Stable abnormal chest.
--- NOTE | 2024-10-13 08:45 | US_ITS ---
WS: [id number] ULTRASOUND SOFT TISSUES LEFT lateral abdomen. HISTORY: LOCALIZED EDEMA COMPARISON: None available. TECHNIQUE: 2-D and color Doppler imaging is submitted. Ultrasound directed of the LEFT lateral abdomen in the area of palpable concern. No mass identified. There is soft tissue edema but no mass. No fluid collection which is well loculated. No increased vascularity. US/US soft tissue/extremity [id number] IMPRESSION: Subcutaneous edema LEFT lateral abdominal wall. No mass.
== END 2024-10-19 23:59 | disposition home or self-care (01) ==
PROVIDERS: Nurse Practitioner Family; PCP Family Medicine; Visit Provider Internal Medicine Medical Oncology
DX: R60.0 Localized edema; Z53.9 Procedure and treatment not carried out, unspecified reason
CPT/HCPCS: 71046; 76882; 80053; 85025; 93306; 96372; 96375; 96377; 96413; 99214; J1100; J2506; J3420; J7050; J9305; J9999

== ENCOUNTER → 2024-10-17 11:12 | Day surgery (SDC) | payer MEDICARE, SELFPAY ==
--- NOTE | 2024-10-17 11:19 | US_ITS ---
WS: [id number] ULTRASOUND-GUIDED THORACENTESIS, LEFT HISTORY: pleural effusion, increasing SOB Procedure, risks, and complications were explained to the patient. With the patient in an upright position, the skin over the LEFT posterior thorax was cleansed with ChloraPrep and anesthetized with 1% buffered lidocaine. A 5 Filipino Yueh needle is inserted into the pleural fluid without complication. A pproximately 1000 cc of clear pleural fluid is removed without difficulty. / thoracentesis [id number] IMPRESSION: 1. LEFT thoracentesis yielding 1000 cc of fluid. 2. Chest radiograph to follow to evaluate for pneumothorax.
[2024-10-17 11:27] VITALS: BP 156/83; PULSE 78; RESP 16; TEMP 36.1; O2SAT 94; BMI 23.9
--- NOTE | 2024-10-17 12:26 | XR_ITS ---
WS: [id number] PORTABLE CHEST HISTORY: Post LEFT thoracentesis. COMPARISON: 10/03/2024 No pneumothorax status post LEFT thoracentesis. Better aeration of the LEFT lung. There is continued bilateral interstitial thickening and pulmonary nodules throughout both lungs. Small residual pleural effusions or pleural thickening as there is blunting of the costophrenic angles. Cardiac size: Normal. Mediastinum/Aorta: Mild atherosclerosis aorta. Osteopenia. RIGHT rotator cuff calcific tendinitis. RIGHT IJ Mediport. XR/XR chest 1V portable [id number] IMPRESSION: 1. No pneumothorax status post LEFT thoracentesis. 2. Small residual bilateral pleural effusions versus pleural thickening. 3. Diffuse chronic interstitial thickening and nodularity. Numerous pulmonary nodules were described on 09/13/2024 CT.
[2024-10-17 12:30] VITALS: BP 140/66; PULSE 78; RESP 16; O2SAT 97
== END ==
LOC: GILAB 11:12
PROVIDERS: Radiology Diagnostic Radiology; PCP Family Medicine; Visit Provider Nurse Practitioner Family
PROC: (CPT 32554; principal; 2024-10-17 12:00)
DX: J90 Pleural effusion, not elsewhere classified (principal); R06.02 Shortness of breath
CPT/HCPCS: 32555; 71045

== ENCOUNTER 2024-10-30 09:53 | Emergency (ER) | payer MEDICARE, SELFPAY ==
[2024-10-30] VITALS (17 sets, daily range): BP systolic 113–171; BP diastolic 59–93; PULSE 82–98; RESP 15–36; TEMP 36.8; O2SAT 91–98; BMI 23.9
--- NOTE | 2024-10-30 09:55 | XRR_ITS ---
PROCEDURE INFORMATION: Exam: XR Chest Exam date and time: 10/30/2024 10:20 AM Age: 74 years old Clinical indication: Shortness of breath; Additional info: SOB TECHNIQUE: Imaging protocol: Radiologic exam of the chest. Views: 1 view. COMPARISON: CR XR chest 1V portable [id number] 10/17/2024 12:28 PM FINDINGS: Tubes, catheters and devices: A MediPort is placed via the right internal jugular vein with its tip at the level of the right atrium. Lungs: There is a background of emphysema and pulmonary fibrosis. Pleural spaces: There are bilateral pleural effusions obscure the hemidiaphragms, left more prominent than right. The left pleural effusion appears slightly larger today compared with 10/17/2024. Heart/Mediastinum: Unremarkable. No cardiomegaly. Bones/joints: Unremarkable. XR/XR chest 1V portable [id number] IMPRESSION: 1. Bilateral pleural effusions, left larger than right. The left pleural effusion appears slightly larger today compared with 10/17/2024. 2. Background of emphysema and pulmonary fibrosis. 3. Stable MediPort placement.
--- NOTE | 2024-10-30 09:55 | ECG_ITS ---
[facility]24[facility]30 Pat Name: Hannah BarrigaDepartment: Room: Gender: Female Operations Project Manager: : 1950 Requested By: Soila Urbina Order Number: [id number] Reading MD: Lucy Alanis M.D. Measurements Intervals Blount Rate: 82 P: 40 FL: 158 QRS: -3 QRSD: 77 T: 12 QT: 336 QTc: 394 Interpretive Statements SINUS RHYTHM LOW QRS VOLTAGE [QRS DEFLECTION < 0.5/1.0 mV IN LIMB/CHEST LEADS] POSSIBLE RIGHT VENTRICULAR CONDUCTION DELAY [RSR (QR) IN V1/V2] ANTEROSEPTAL MYOCARDIAL INFARCTION , OF INDETERMINATE AGE [40+ ms Q WAVE IN V1-V4] No previous ECG available for comparison Electronically Signed On 10-30-2024 22:45:12 CDT by Lucy Alanis M.D. [id number] [id number]
--- NOTE | 2024-10-30 10:08 | ED_ITS ---
HPI - SOB/Dyspnea 2 General: Chief Complaint: Shortness of Breath/Dyspnea Stated Complaint: gina Hall Time Seen by Provider: 10/30/24 09:55 Source: patient Mode of arrival: ambulatory Limitations: no limitations History of Present Illness: HPI Narrative: 74-year-old female has a history of non- small cell lung cancer currently on chemo she states that been having some shortness of breath over the last week worsening with exertion. She had some mild bilateral leg swelling as well. She has no history of CHF does have a history of a left pleural effusion she had drained she states 2 weeks ago. She denies any chest pain or fevers. Has had a mild cough Associated symptoms: Deny abdominal pain, chest pain, fever(s), nausea or vomiting Related Data Home Medications ?Medication ?Instructions ?Recorded ?Confirmed calcium carbonate 500 mg PO DAILY PRN Heartbur n 12/10/21 10/24/24 cholecalciferol (vitamin D3) 75 75 mcg PO DAILY 10/24/24 mcg (3,000 unit) tablet esomeprazole magnesium 20 mg 20 mg PO DAILY 12/10/21 0 10/24/24 capsule,delayed release (Nexium) denosumab 60 mg/mL subcutaneous 60 mg SUBCUT .[id number] 02/18/24 10/24/24 syringe (Prolia) ondansetron 8 mg disintegrating 8 mg PO Q8H PRN Nausea And Vomiting 02/22/24 10/24/24 tablet anastrozole 1 mg tablet 1 mg PO DAILY 03/24/2410/24 Previous Rx's ?Medication ?Instructions ?Recorded albuterol sulfate 2.5 mg/3 mL 2.5 mg (3 mL) inhalation QID PRN 02/18/24 (0.083 %) solution for nebulization shortness of breat h or wheezing #1,080 mL albuterol sulfate 90 mcg/actuation 2 puff inhalation Q ID PRN 02/18/24 aerosol inhaler shortness of breath or wheez ing #8.5 grams lorazepam 0.5 mg tablet 0.5 mg PO TID PRN severe hermelindo sea 02/22/24 #30 tabs prochlorperazine maleate 10 mg 10 mg PO Q6H PRN nausea and 02/22/24 tablet (Compazine) vomiting #60 tabs triamcinolone acetonide 0.1 % 1 applic topical TID PRN itching 08/22/24 topical cream #15 grams folic acid 1 mg tablet 1 mg PO DAILY #30 tabs 09/12 megestrol 800 mg/20 mL (20 mL) 800 mg (20 mL) PO DAILY #600 mL 10/24/24 oral suspension Allergies Allergy/AdvReac Type Severity Reaction Status Date / Time No Known Allergies Allergy Verified 10/24/24 10:56 Review of Systems 2 Const: Denies: fever(s), chills, body aches or change in appetite ENMT: Denies: throat pain or dental pain Card: Denies: chest pain Resp: Reports: dyspnea GI: Denies: abdominal pain, nausea, vomiting or diarrhea : Denies: dysuria Musc: Denies: neck pain or back pain Skin/Breast: Denies: rash Neuro: Denies: headache(s) PFSH ED 2 PFSH: Medical History Pericarditis noted on CT Osteoporosis osteoporosis on DEXA in past, treated w/ Prolia Metastatic primary lung cancer adenocarcinoma; mets to liver, omentum, supraclavicular lymph nodes; Dr. Arnold at [facility] for onc and Dr. Brown/Kwabena for local onc--on chemo Osteopenia Breast cancer L breast--just had radiation and anastrazole GERD (gastroesophageal reflux disease) Vitamin D deficiency Surgical History History of lung biopsy bronchoscopy bx IDRIS 11.6.24 H/O vein stripping bilateral History of lumpectomy of left breast (05/04/19) Left breast lumpectomy with axillary sentinel lymph node biopsy History of bunionectomy of right great toe Family History Sister Cancer breast Family/Other Cancer Breast, brain Mother Dementia Hypertension Other Diabetes Suicide Denies family history of CAD (coronary artery disease) Clotting disorder Hyperlipidemia Psychiatric illness Chronic kidney disease (CKD) Anesthesia complication Bleeding disorder Lung disease Stroke Social History Smoking and tobacco/nicotine status: never used tobacco/nicotine Quit status (tobacco/nicotine): has quit using Year quit tobacco: 1976 Former quit date comment: approx. 7 years Alcohol intake: current Alcohol intake frequency: holidays/special occasions only Substance/Drug Use: never Household members: spouse Marital status: Number of children: 3 Highest education level completed: Master's Degree Current occupational status: retired Previous occupational history: teacher and still teaches Physical Exam 2 Const: COMMON NORMALS: patient oriented x3 HENMT: COMMON NORMALS: normocephalic and atraumatic HEAD & SCALP: n ormocephalic and atraumatic Eye: COMMON NORMALS: conjunctivae normal CONJUNCTIVA: Yes conjunctivae normal Neck/C-Spine: COMMON NORMALS: full ROM and supple Chest: COMMONS NORMALS: normal inspection of the chest Resp: COMMON NORMALS: normal respiratory effort, No retractions, No use of accessory muscles and clear to auscultation bilaterally AUSCULTATION: clear to auscultation bilaterally Cardio: COMMON NORMALS: regular rate, regular rhythm and No murmurs present (Cardio) RATE: regular rate RHYTHM: regular rhythm Extremity: COMMON NORMALS: normal to inspection and full ROM Neuro: COMMON NORMALS: patient oriented x3, moves all extremities and no focal motor deficits Psych: COMMON NORMALS: mental status grossly normal, Normal thought process present and cooperative THOUGHT PROCESS: Normal thought process present Skin: COMMON NORMALS: no rashes or lesions noted and no wounds GENERAL SKIN EXAM: no rashes or lesions noted Course 2 Vital Signs: Vital signs: Vital Signs Temperature 98.2 F 10/30/24 09:57 Pulse Rate 91 10/30/24 11:35 Respiratory Rate 18 10/30/24 11:35 Blood Pressure 130/60 10/30/24 11:35 Pulse Oximetry 91 10/30/24 11:35 MDM - SOB/Dyspnea Medical Decision Making Patient presents here with shortness of breath does have a history of lung cancer that is increased in size patient does have pleural effusions as well but she does not have any hypoxia is here I feel she is stable for discharge she has to follow-up with her oncologist return if worsening she has no signs of PE or pneumonia. Medical Records I reviewed the patient's medical records. Lab Data I reviewed the patient's lab results. 10/30/24 10:20 10/30/24 10:20 Labs/Radiology: Radiology Impressions Chest X-Ray 10/30/24 09:55 IMPRESSION: 1. Bilateral pleural effusions, left larger than right. The left pleural effusion appears slightly larger today compared with 10/17/2024. 2. Background of emphysema and pulmonary fibrosis. 3. Stable MediPort placement. Chest CTA 10/30/24 10:29 IMPRESSION: 1. No evidence of pulmonary embolus. 2. Progressed LEFT left upper lobe spiculated neoplasm 3. Smaller progressed bilateral pulmonary nodules suspicious for progressive metastatic disease 4. Progressed bilateral moderate pleural effusions. 5. Large esophageal hiatal hernia. Laboratory Results WBC 2.32 10^3/uL (3.29-11.43) L 10/30/24 10:20 RBC 2.72 10^6/uL (3.85-5.65) L 10/30/24 10:20 Hgb 9.10 g/dL (11.27-16.99) L 10/30/24 10:20 Hct 29.1 % (36-47) L 10/30/24 10:20 MCV 107.0 fl (85-98) H 10/30/24 10:20 MCH 33.5 pg (27-33) H 10/30/24 10:20 MCHC 31.3 g/dL (30-55) 10/30/24 10:20 RDW 17.6 % (12.1-15.1) H 10/30/24 10:20 Plt Count 200 10^3/cmm (157-399) 10/30/24 10:20 MPV 9.4 fL (7.4-10.4) 10/30/24 10:20 Neut % (Auto) 45.3 % 10/30/24 10:20 Lymph % (Auto) 26.3 % 10/30/24 10:20 Lyman % (Auto) 1.7 % 10/30/24 10:20 Eos % (Auto) 3.0 % 10/30/24 10:20 Baso % (Auto) 1.3 % 10/30/24 10:20 Neut # (Auto) 1.05 10^3/uL (1.8-7.7) L 10/30/24 10:20 Lymph # (Auto) 0.6 10^3/uL (0.8-4.8) L 10/30/24 10:20 Lyman # (Auto) 0.0 10^3/uL (0.2-0.9) L 10/30/24 10:20 Eos # (Auto) 0.1 10^3/uL (0.0-0.8) 10/30/24 10:20 Baso # (Auto) 0.0 10^3/uL (0.0-0.1) 10/30/24 10:20 Nucleated RBC % (auto) 0 % 10/30/24 10:20 Nucleated RBCs # 0.0 /100WBC 10/30/24 10:20 Sodium 138 mmol/L (136-145) 10/30/24 10:20 Potassium 3.6 mmol/L (3.5-5.1) 10/30/24 10:20 Chloride 106 mmol/L (98-107) 10/30/24 10:20 Carbon Dioxide 24 mmol/L (22-29) 10/30/24 10:20 Anion Gap 11.6 (5-19) 10/30/24 10:20 BUN 24 mg/dL (8-23) H 10/30/24 10:20 Creatinine 0.7 mg/dL (0.5-0.9) 10/30/24 10:20 GFR Calculation Not Reportable 10/30/24 10:20 Glucose 109 mg/dL (65-115) 10/30/24 10:20 Calculated Osmolality 291 mOsm/kg (285-295) 10/30/24 10:20 Calcium 8.6 mg/dL (8.5-10.5) 10/30/24 10:20 NT-Pro-B Natriuret Pep 108 pg/mL (0-125) 10/30/24 10:20 All radiology interpretation(s) finalized by discharge EKG Data EKG 1: I personally reviewed and interpreted this EKG as follows: EKG Interpretation Date: 10/30/24 EKG interpretation time: 10:10 Interpretation: nsr hr [address] elevation qrs 77 qtc 375 Discharge Plan Discharge Patient Disposition: Home Clinical Impression: Metastatic primary lung cancer, Pleural effusion, left Condition: Stable Prescriptions: No Action cholecalciferol (vitamin D3) 75 mcg (3,000 unit) tablet 75 mcg PO DAILY esomeprazole magnesium [Nexium] 20 mg capsule,delayed release(DR/EC) 20 mg PO DAILY calcium carbonate 500 mg calcium (1,250 mg) tablet,chewable 500 mg PO DAILY PRN (Reason: Heartburn) albuterol sulfate 2.5 mg /3 mL (0.083 %) solution for nebulization 2.5 mg inhalation QID PRN (Reason: shortness of breath or wheezing) Qty: 1080 3RF albuterol sulfate 90 mcg/actuation HFA aerosol inhaler 2 puff inhalation QID PRN (Reason: shortness of breath or wheezing) Qty: 8.5 5RF Prolia 60 mg/mL syringe 60 mg SUBCUT .[id number] folic acid 1 mg tablet 1 mg PO DAILY Qty: 30 2RF ondansetron 8 mg tablet,disintegrating 8 mg PO Q8H PRN (Reason: Nausea And Vomiting) prochlorperazine maleate [Compazine] 10 mg tablet 10 mg PO Q6H PRN (Reason: nausea and vomiting) Qty: 60 2RF lorazepam 0.5 mg tablet 0.5 mg PO TID PRN (Reason: severe nausea) Qty: 30 3RF Rx Instructions: 1/2 to 1 tablet as needed for severe nausea. megestrol 800 mg/20 mL (20 mL) suspension 800 mg PO DAILY Qty: 600 2RF triamcinolone acetonide 0.1 % cream 1 applic topical TID PRN (Reason: itching) Qty: 15 0RF anastrozole 1 mg tablet 1 mg PO DAILY Rx Instructions: TAKE 1 TABLET BY MOUTH EVERY DAY Discharge Orders: Discharge ED (Routine); Ordered 10/30/24 Ordered By: Soila Urbina Referrals: Angelina Neely MD [Primary Care Provider, Family Practice] - 4-7 days Discharge Diet: Advance as tolerated Discharge Activity: Resume usual activity Patient Instructions: Pleural Effusion (DC) Print Language: Croatian Coding Level of Care Code ED Forensic Social Worker for Yamila Rodríguez
--- NOTE | 2024-10-30 10:29 | CT_ITS ---
WS: [id number] CTA OF THE CHEST WITH PULMONARY EMBOLISM PROTOCOL TECHNIQUE: High-resolution contrast enhanced CTA of the chest with coronal and sagittal reformatted images with pulmonary embolism protocol. MIP images are also reviewed. CLINICAL INFORMATION: sob COMPARISON: None. DLP: 311.[address] scans at [facility] use at least one of these dose optimization techniques: automated exposure control; mA and/or kV adjustment per patient size (includes targeted exams where dose is matched to clinical indication); or iterative reconstruction. FINDINGS: LEFT upper lobe spiculated mass compatible with known neoplasm increased in size today compared to 09/14/2024. Today this measures approximately 3.5 x 2.5 cm this extends to the LEFT upper lobe anteriorly. Increasing moderate bilateral pleural effusions. Small pericardial effusion. Additional numerous smaller nodules in both lungs some of which appear progressed suspicious for progressive disease. Interstitial thickening in both lungs. Proximal main pulmonary arteries are normal. Normal segmental and subsegmental pulmonary arteries. No evidence of pulmonary embolus. Moderate to large esophageal hiatal hernia. CT/CT angio chest PE protcl [id number] IMPRESSION: 1. No evidence of pulmonary embolus. 2. Progressed LEFT left upper lobe spiculated neoplasm 3. Smaller progressed bilateral pulmonary nodules suspicious for progressive m etastatic disease 4. Progressed bilateral moderate pleural effusions. 5. Large esophageal hiatal hernia.
[2024-10-30 10:42] LABS: Hematocrit 29.1 % (36-47); Hemoglobin 9.10 g/dL (11.27-16.99); Mean Corpuscular HGB Conc 31.3 g/dL (30-55); Mean Corpuscular Hemoglobin 33.5 pg (27-33); Mean Corpuscular Volume 107.0 fl (85-98); Nucleated Red Blood Cells % 0 %; Platelet Count 200 10^3/cmm (157-399); Red Blood Count 2.72 10^6/uL (3.85-5.65); White Blood Count 2.32 10^3/uL (3.29-11.43)
[2024-10-30] MEDS: iohexol 350 mg/mL 500 mL Btl (per mL) IV (10:56)
[2024-10-30 11:09] LABS: Slide Review Slide Review Perform
[2024-10-30 11:17] LABS: Anion Gap 11.6 (5-19); Blood Urea Nitrogen 24 mg/dL (8-23); Calcium 8.6 mg/dL (8.5-10.5); Carbon Dioxide 24 mmol/L (22-29); Chloride 106 mmol/L (98-107); Creatinine Clr Calc Pharmacy 59.6460; Glucose 109 mg/dL (65-115); NT Pro B Type Natriuretic Pept 108 pg/mL (0-125); Osmolality Calculated 291 mOsm/kg (285-295); Potassium 3.6 mmol/L (3.5-5.1); Sodium 138 mmol/L (136-145)
== END 2024-10-30 11:50 | disposition home or self-care (01) ==
PROVIDERS: Emergency Provider Emergency Medicine; PCP Family Medicine
DX: J90 Pleural effusion, not elsewhere classified (principal); Z85.118 Personal history of other malignant neoplasm of bronchus and lung; C78.7 Secondary malignant neoplasm of liver and intrahepatic bile duct; Z85.3 Personal history of malignant neoplasm of breast
CPT/HCPCS: 71045; 71275; 80048; 83880; 85025; 93005; 99285

== ENCOUNTER 2024-11-09 11:23 | Day surgery (SDC) | payer MEDICARE, SELFPAY ==
[2024-11-09 11:45] VITALS: BP 164/75; PULSE 92; RESP 20; TEMP 36.8; O2SAT 94
--- NOTE | 2024-11-09 11:57 | US_ITS ---
WS: [email or web address] ULTRASOUND-GUIDED THORACENTESIS CLINICAL INFORMATION: bilateral pleural effusion COMPARISON: 10/17/2024 PROCEDURE: Informed consent: The risks, benefits, and alternatives of the procedure were discussed with the patient. Verbal and written consent was obtained. Timeout: A timeout was performed to confirm the correct patient, procedure, and site. Site: RIGHT chest Preparation: A suitable skin site was identified. The patient was prepped and draped in usual sterile fashion. Lidocaine 1% was used for local anesthesia. Catheter: 4 Salvadorean One-Step catheter. Fluid Volume: 900 ml Color: Clear yellow Complications: None. Patient disposition: Discharged from the department in stable condition. / thoracentesis [id number] IMPRESSION: 1. Uncomplicated ultrasound-guided thoracentesis RIGHT chest with removal of 9 00 cc. 2. No pneumothorax on the postthoracentesis chest
[2024-11-09 12:01] VITALS: BMI 25.0
--- NOTE | 2024-11-09 13:01 | XRR_ITS ---
PROCEDURE INFORMATION: Exam: XR Chest Exam date and time: 11/09/2024 1:03 PM Age: 74 years old Clinical indication: Other: Post thoracentesis TECHNIQUE: Imaging protocol: Radiologic exam of the chest. Views: 1 view. COMPARISON: CT angio chest PE protcl [id number] 10/30/2024 10:52 AM FINDINGS: Tubes, catheters and devices: A right-sided VAD is in good position with the catheter tip in the lower SVC. Lungs: There is diffuse nodular interstitial lung disease involving both lungs. A 3 cm mass is noted in the left apex. Pleural spaces: Minimal left-sided pleural effusion is noted. Heart/Mediastinum: Unremarkable. No cardiomegaly. Bones/joints: Unremarkable. XR/XR chest 1V portable [id number] IMPRESSION: 1. Successful thoracentesis with no evidence of pneumothorax 2. Stable metastatic lung disease
[2024-11-09 13:20] VITALS: BP 136/61; PULSE 81; RESP 18; O2SAT 97
== END 2024-11-09 13:50 | disposition home or self-care (01) ==
PROVIDERS: Radiology Neuroradiology; PCP Family Medicine; Visit Provider Internal Medicine Medical Oncology
PROC: (CPT 32554; principal; 2024-11-09 13:00)
DX: J90 Pleural effusion, not elsewhere classified (principal)
CPT/HCPCS: 32555; 71045

== ENCOUNTER → 2024-11-13 11:31 | Day surgery (SDC) | payer MEDICARE, SELFPAY ==
--- NOTE | 2024-11-13 11:48 | US_ITS ---
WS: [email or web address] ULTRASOUND-GUIDED THORACENTESIS, LEFT HISTORY: LEFT pleural effusion. Procedure, risks, and complications were explained to the patient. With the patient in an upright position, the skin over the left posterior thorax was cleansed with ChloraPrep and anesthetized with 1% buffered lidocaine. A 5 Filipino Yueh needle is inserted into the pleural fluid without complication. Approximately 1000 cc of light yellow pleural fluid is removed without difficulty. / thoracentesis [id number] IMPRESSION: 1. LEFT thoracentesis yielding 1000 cc of fluid. 2. Chest radiograph to follow to evaluate for pneumothorax.
[2024-11-13 11:55] VITALS: BP 152/80; PULSE 89; RESP 16; TEMP 36.4; O2SAT 96; BMI 25.0
--- NOTE | 2024-11-13 12:53 | XR_ITS ---
WS: [email or web address] PORTABLE CHEST HISTORY: post thoracentesis, LEFT COMPARISON: 11/09/2024 Status post LEFT thoracentesis. Very small residual blunting of the LEFT costophrenic angle. No pneumothorax. Slight blunting of the RIGHT costophrenic angle. Scattered nodular interstitial thickening throughout both lungs similar to prior studies. Reidentified is a mass at the LEFT apex. There are several scattered masslike opacifications which have been previously described. Cardiac size: Normal. Mediastinum/Aorta: Normal mediastinum. No osseous abnormality seen. Right-sided Mediport. XR/XR chest 1V portable [id number] IMPRESSION: No pneumothorax status post LEFT thoracentesis.
== END ==
PROVIDERS: Radiology Diagnostic Radiology; PCP Family Medicine; Visit Provider Internal Medicine Medical Oncology
PROC: (CPT 32554; principal; 2024-11-13 13:30)
DX: J90 Pleural effusion, not elsewhere classified (principal)
CPT/HCPCS: 32555; 71045

== ENCOUNTER 2024-11-13 15:45 | Oncology outpatient (recurring) (ONCR) | payer MEDICARE, SELFPAY ==
[2024-10-24 10:49] LABS: Hematocrit 34.3 % (36-47); Hemoglobin 10.60 g/dL (11.27-16.99); Mean Corpuscular HGB Conc 30.9 g/dL (30-55); Mean Corpuscular Hemoglobin 33.0 pg (27-33); Mean Corpuscular Volume 106.9 fl (85-98); Nucleated Red Blood Cells % 0 %; Platelet Count 455 10^3/cmm (157-399); Red Blood Count 3.21 10^6/uL (3.85-5.65); White Blood Count 9.76 10^3/uL (3.29-11.43)
[2024-10-24 11:02] LABS: Alanine Aminotransferase 18 U/L (0-33); Albumin Level 3.0 g/dL (3.5-5.2); Alkaline Phosphatase 166 U/L (35-105); Anion Gap 14.6 (5-19); Aspartate Amino Transferase 27 U/L (0-32); Blood Urea Nitrogen 15 mg/dL (8-23); Calcium 8.6 mg/dL (8.5-10.5); Carbon Dioxide 25 mmol/L (22-29); Chloride 106 mmol/L (98-107); Creatinine Clr Calc Pharmacy 48.2911; Globulin 4.4 g/dL (1.3-4.6); Glucose 110 mg/dL (65-115); Osmolality Calculated 293 mOsm/kg (285-295); Potassium 4.6 mmol/L (3.5-5.1); Sodium 141 mmol/L (136-145); Total Protein 7.4 g/dL (6.6-8.7)
[2024-10-24] MEDS: dexamethasone 4 mg/mL INJ 5 mL 12 MG IVP (11:50)
[2024-10-24 11:59] VITALS: BP 123/72; PULSE 76; TEMP 36.5; O2SAT 94
[2024-10-24] MEDS: SODIUM CHLORIDE 0.9% IV (12:26)
[2024-10-24] MEDS: PEMETREXED DISODIUM IV (12:26)
[2024-10-24] MEDS: pegfilgrastim 6 mg/0.6 mL Kit (onpro) SUBCUT (12:46)
[2024-10-24 12:51] VITALS: BP 119/76; PULSE 71; RESP 18; TEMP 36.3; O2SAT 94
--- NOTE | 2024-11-13 15:45 | USCV_ITS ---
Hannah Khoury Age: 74 Gender: F : 1950 Exam Date: 11/13/2024 13:26 Ordering Phys: Celine Yuan MD Technologist: NUBIA [place] [facility] [place] UE Swelling HISTORY: Upper extremity edema. PROCEDURES: Venous duplex imaging was performed in bilateral upper extremities. The following venous structures were evaluated: internal jugular vein, subclavian vein, axillary vein, and brachial veins. In addition, the basilic vein and cephalic vein. Serial compression, augmentation maneuvers, and spectral Doppler flow evaluation were performed. FINDINGS: No evidence of deep vein thrombosis or superficial thrombophlebitis in the left upper extremity. No evidence of deep vein thrombosis or superficial thrombophlebitis in the right upper extremity. CONCLUSIONS No evidence of thrombus of the bilateral upper extremity veins. Uriel Robb MD (Electronically Signed) Final Date: 13 November 2024 15:31 S
== END 2024-11-19 23:59 | disposition home or self-care (01) ==
LOC: ONCMED 11-14 09:03
PROVIDERS: Nurse Practitioner Family; PCP Family Medicine; Visit Provider Internal Medicine Medical Oncology
DX: C50.312 Malignant neoplasm of lower-inner quadrant of left female breast; Z17.0 Estrogen receptor positive status [ER+]; R60.0 Localized edema; M85.80 Other specified disorders of bone density and structure, unspecified site; R60.9 Edema, unspecified; Z53.9 Procedure and treatment not carried out, unspecified reason
CPT/HCPCS: 80053; 85025; 93970; 96372; 96375; 96377; 96413; 99214; J1100; J2506; J7050; J9305; J9999

== ENCOUNTER → 2024-11-14 08:08 | Outpatient (BNVA) | payer MEDICARE, SELFPAY | PROVIDERS: PCP Family Medicine; Visit Provider Nurse Practitioner Family | DX: L27.0 Generalized skin eruption due to drugs and medicaments taken internally (principal) | CPT/HCPCS: 99214 ==

== ENCOUNTER 2024-12-18 11:00 | Oncology outpatient (recurring) (ONCR) | payer MEDICARE, SELFPAY ==
[2024-11-24 09:54] LABS: Hematocrit 32.2 % (36-47); Hemoglobin 10.30 g/dL (11.27-16.99); Mean Corpuscular HGB Conc 32.0 g/dL (30-55); Mean Corpuscular Hemoglobin 34.1 pg (27-33); Mean Corpuscular Volume 106.6 fl (85-98); Nucleated Red Blood Cells % 0 %; Platelet Count 271 10^3/cmm (157-399); Red Blood Count 3.02 10^6/uL (3.85-5.65); White Blood Count 10.61 10^3/uL (3.29-11.43)
[2024-11-24 10:10] LABS: Alanine Aminotransferase 14 U/L (0-33); Albumin Level 2.9 g/dL (3.5-5.2); Alkaline Phosphatase 105 U/L (35-105); Anion Gap 14.0 (5-19); Aspartate Amino Transferase 18 U/L (0-32); Blood Urea Nitrogen 25 mg/dL (8-23); Calcium 8.9 mg/dL (8.5-10.5); Carbon Dioxide 26 mmol/L (22-29); Chloride 100 mmol/L (98-107); Globulin 4.7 g/dL (1.3-4.6); Glucose 105 mg/dL (65-115); Osmolality Calculated 289 mOsm/kg (285-295); Potassium 3.0 mmol/L (3.5-5.1); Sodium 137 mmol/L (136-145); Total Protein 7.6 g/dL (6.6-8.7)
[2024-11-27 10:30] LABS: Cholesterol 178 mg/dL (0-200); HDL Cholesterol 36 mg/dL (60-100); Triglycerides 89 mg/dL (0-150)
[2024-11-27 10:50] LABS: Hepatitis B Surface Antigen Non-Reactive (Nonreactive)
[2024-11-27 11:17] LABS: Hepatitis A Antibody IgM Non-Reactive (Nonreactive)
[2024-12-06 10:00] LABS: Hematocrit 34.1 % (36-47); Hemoglobin 11.10 g/dL (11.27-16.99); Mean Corpuscular HGB Conc 32.6 g/dL (30-55); Mean Corpuscular Hemoglobin 34.7 pg (27-33); Mean Corpuscular Volume 106.6 fl (85-98); Nucleated Red Blood Cells % 0 %; Platelet Count 295 10^3/cmm (157-399); Red Blood Count 3.20 10^6/uL (3.85-5.65); White Blood Count 8.23 10^3/uL (3.29-11.43)
[2024-12-06 10:25] LABS: Alanine Aminotransferase 42 U/L (0-33); Albumin Level 3.3 g/dL (3.5-5.2); Alkaline Phosphatase 92 U/L (35-105); Anion Gap 14.0 (5-19); Aspartate Amino Transferase 31 U/L (0-32); Blood Urea Nitrogen 29 mg/dL (8-23); Calcium 9.0 mg/dL (8.5-10.5); Carbon Dioxide 26 mmol/L (22-29); Chloride 98 mmol/L (98-107); Creatinine Clr Calc Pharmacy 43.7704; Globulin 4.9 g/dL (1.3-4.6); Glucose 110 mg/dL (65-115); Osmolality Calculated 286 mOsm/kg (285-295); Potassium 3.0 mmol/L (3.5-5.1); Sodium 135 mmol/L (136-145); Total Protein 8.2 g/dL (6.6-8.7)
[2024-12-11 12:46] LABS: Hematocrit 34.2 % (36-47); Hemoglobin 11.00 g/dL (11.27-16.99); Mean Corpuscular HGB Conc 32.2 g/dL (30-55); Mean Corpuscular Hemoglobin 34.6 pg (27-33); Mean Corpuscular Volume 107.5 fl (85-98); Nucleated Red Blood Cells % 0 %; Platelet Count 254 10^3/cmm (157-399); Red Blood Count 3.18 10^6/uL (3.85-5.65); White Blood Count 7.02 10^3/uL (3.29-11.43)
[2024-12-11 13:01] LABS: Alanine Aminotransferase 39 U/L (0-33); Albumin Level 3.2 g/dL (3.5-5.2); Alkaline Phosphatase 85 U/L (35-105); Anion Gap 15.4 (5-19); Aspartate Amino Transferase 29 U/L (0-32); Blood Urea Nitrogen 33 mg/dL (8-23); Calcium 9.0 mg/dL (8.5-10.5); Carbon Dioxide 24 mmol/L (22-29); Chloride 100 mmol/L (98-107); Creatinine Clr Calc Pharmacy 47.4299; Globulin 5.0 g/dL (1.3-4.6); Glucose 131 mg/dL (65-115); Osmolality Calculated 291 mOsm/kg (285-295); Potassium 3.4 mmol/L (3.5-5.1); Sodium 136 mmol/L (136-145); Total Protein 8.2 g/dL (6.6-8.7)
[2024-12-18 11:35] LABS: Anion Gap 12.9 (5-19); Blood Urea Nitrogen 32 mg/dL (8-23); Calcium 9.2 mg/dL (8.5-10.5); Carbon Dioxide 24 mmol/L (22-29); Chloride 105 mmol/L (98-107); Creatinine Clr Calc Pharmacy 47.4299; Glucose 149 mg/dL (65-115); Osmolality Calculated 296 mOsm/kg (285-295); Potassium 3.9 mmol/L (3.5-5.1); Sodium 138 mmol/L (136-145)
== END 2024-12-19 23:59 | disposition home or self-care (01) ==
PROVIDERS: Internal Medicine Medical Oncology; PCP Family Medicine; Visit Provider Nurse Practitioner Family
DX: Z53.9 Procedure and treatment not carried out, unspecified reason; E87.6 Hypokalemia
CPT/HCPCS: 36591; 80048; 80053; 80061; 83615; 85025; 86705; 86706; 86709; 86803; 87340; 99214; 99215

== ENCOUNTER 2024-12-29 10:02 | Outpatient (CLI) | payer MEDICARE, SELFPAY ==
--- NOTE | 2024-12-29 11:00 | CTR_ITS ---
PROCEDURE INFORMATION: Exam: CT Chest With Contrast; Diagnostic Exam date and time: 12/29/2024 10:54 AM Age: 74 years old Clinical indication: Condition or disease; Other: Breast and lung cancer; Prior surgery; Surgery date: 6+ months; Surgery type: Lumpectomy; Additional info: Restaging TECHNIQUE: Imaging protocol: Diagnostic computed tomography of the chest with contrast. Radiation optimization: All CT scans at this facility use at least one of these dose optimization techniques: automated exposure control; mA and/or kV adjustment per patient size (includes targeted exams where dose is matched to clinical indication); or iterative reconstruction. Contrast material: 350 OMNI; Contrast volume: 100 ml; Contrast route: INTRAVENOUS (IV); COMPARISON: CT chest abdpel w/*[id number] 09/14/2024 2:57 PM RADIATION DOSE METRICS: Total DLP (mGy-cm): 620.47 FINDINGS: Tubes, catheters and devices: Right anterior chest wall port catheter with tip at the superior cavoatrial junction. Thyroid: Unremarkable. Trachea: Trachea and central airways are patent. Lungs: No consolidation. Passive atelectasis of the lung bases. Lung nodules: Interval decrease in size of the dominant left upper lobe nodule, measuring 2.5 x 1.9 x 2.5 cm, previously 3.2 x 2.9 x 3.4 cm on 10/30/2024 when remeasured similarly. Numerous additional nodules scattered throughout the bilateral lungs demonstrate interval decrease in size and appear less solid. For example a 9 x 5 mm subsolid nodule in the posterior right upper lobe (series 4, image 34) was previously solid and measured 1.1 x 0.8 cm on 10/30/2024. Pleural spaces: No pneumothorax. Large bilateral pleural effusions, right greater than left, similar to prior. Heart: No cardiomegaly. No pericardial effusion. Esophagus: Moderate hiatal hernia. Mediastinal space: Unremarkable. Lymph nodes: No mediastinal, hilar, or axillary lymphadenopathy. Vasculature: No aortic aneurysm or dissection. Moderate atherosclerotic calcification of the aortic arch. No central or lobar pulmonary embolism. Bones/joints: No acute fracture. No suspicious lesion. Soft tissues: Metallic clips in the left breast and left axilla. PROCEDURE INFORMATION: Exam: CT Abdomen And Pelvis With Contrast Exam date and time: 12/29/2024 10:54 AM Age: 74 years old Clinical indication: Condition or disease; Other: Breast and lung cancer; Prior surgery; Surgery date: 6+ months; Surgery type: Lumpectomy; Additional info: Restaging TECHNIQUE: Imaging protocol: Computed tomography of the abdomen and pelvis with contrast. Radiation optimization: All CT scans at this facility use at least one of these dose optimization techniques: automated exposure control; mA and/or kV adjustment per patient size (includes targeted exams where dose is matched to clinical indication); or iterative reconstruction. Contrast material: 350 OMNI; Contrast volume: 100 ml; Contrast route: INTRAVENOUS (IV); COMPARISON: CT chest abdpel w/*[id number] 09/14/2024 2:57 PM RADIATION DOSE METRICS: Total DLP (mGy-cm): 620.47 FINDINGS: Lungs: Please see separate CT chest report from the same date. Liver: Normal. Gallbladder and biliary ducts: Mildly distended gallbladder. No radiodense gallstones. No biliary ductal dilation. Pancreas: Normal. Spleen: A couple of benign punctate calcified granulomas. Adrenal glands: Normal. Kidneys and ureters: Symmetrically enhanced kidneys. No hydronephrosis. No obstructing urolithiasis. Bilateral simple cysts and subcentimeter presumed cysts. Stomach and bowel: No bowel obstruction. Colonic diverticulosis. Mild concentric wall thickening of the ascending and transverse colon. Appendix: Not visualized. Intraperitoneal space: No free air. Trace free fluid in the rectouterine pouch. Vasculature: Moderate atherosclerotic calcifications of the normal-caliber abdominal aorta. Lymph nodes: No lymphadenopathy. Urinary bladder: Unremarkable as visualized. Reproductive: Unremarkable uterus. No adnexal mass. Bones/joints: No suspicious lesion. No acute osseous abnormality. Soft tissues: Mild diastasis recti. Mild body wall anasarca. CT/CT chest abdpel w/*[id number] IMPRESSION: 1. Overall, positive treatment response in the chest. 2. Interval decrease in size of the dominant left upper lobe nodule, measuring 2.5 x 1.9 x 2.5 cm, previously 3.2 x 2.9 x 3.4 cm on 10/30/2024 when remeasured similarly. 3. Numerous additional nodules scattered throughout the bilateral lungs demonstrate interval decrease in size and appear less solid. 4. Large bilateral pleural effusions, right greater than left, similar to prior. IMPRESSION: 1. No evidence of metastatic disease in the abdomen or pelvis. 2. Mild concentric wall thickening of the ascending and transverse colon, suspicious for a nonspecific colitis. COMMENTS: Consistent with the [employer]'s Incidental Findings Committee white paper (J Am Pavel Radiol 2018): Any incidental renal lesion less than 1 cm or classified as too small to characterize, or any incidental cystic renal lesion characterized as simple-appearing, is likely benign. No follow-up imaging is recommended for these lesions per consensus recommendations based on imaging criteria.
[2024-12-29] MEDS: iohexol 350 mg/mL 500 mL Btl (per mL) IV (11:04)
[2024-12-29] MEDS: iohexol 350 mg/mL 500 mL Btl (per mL) PO (11:04)
== END 2024-12-29 10:03 | disposition home or self-care (01) ==
PROVIDERS: PCP Family Medicine; Visit Provider Nurse Practitioner Family
DX: C34.90 Malignant neoplasm of unspecified part of unspecified bronchus or lung (principal); J98.11 Atelectasis; Z95.820 Peripheral vascular angioplasty status with implants and grafts; R91.8 Other nonspecific abnormal finding of lung field; K44.9 Diaphragmatic hernia without obstruction or gangrene; I70.0 Atherosclerosis of aorta; M62.08 Separation of muscle (nontraumatic), other site; R60.1 Generalized edema; J90 Pleural effusion, not elsewhere classified; Z96.89 Presence of other specified functional implants; K57.90 Diverticulosis of intestine, part unspecified, without perforation or abscess without bleeding; K63.89 Other specified diseases of intestine
CPT/HCPCS: 71260; 74177

== ENCOUNTER 2025-01-15 09:30 | Oncology outpatient (recurring) (ONCR) | payer MEDICARE, SELFPAY ==
--- NOTE | 2024-12-22 07:15 | USCV_ITS ---
Hannah Khoury Age: 74 Gender: F : 1950 Exam Date: 12/22/2024 07:18 Ordering Phys: Adriana Malloy APRN Technologist: NUBIA [place] [facility] [place]: high risk med use BP: 145 / 81 HR: 75 Rhythm: Sinus Technical Quality: Adequate MEASUREMENTS (Male / Female) Normal Values 2D ECHO LV Diastolic Diameter PLAX 3.9 cm 4.2 - 5.9 / 3.9 - 5.3 cm IVS Diastolic Thickness 1.0 cm 0.6 - 1.0 / 0.6 - 0.9 cm IVS Systolic Thickness 1.3 cm LVPW Diastolic Thickness 1.3 cm 0.6 - 1.0 / 0.6 - 0.9 cm LVPW Systolic Thickness 1.5 cm LVOT Diameter 2.0 cm LV Ejection Fraction 2D Teich 60.3 % LV Ejection Fraction MOD 4C 59.5 % LV Ejection Fraction MOD 2C 47.8 % LV Ejection Fraction 2C AL 50.3 % LA Diameter 2.7 cm RA Systolic Volume 4C AL 14.8 ml RA Systolic Volume 4C MOD 13.3 ml LA Sys Volume AL 28.3 cm cubed LA Sys Volume Index AL 16.4 cm cubed/m squared Aorta at Sinotubular Diameter 2.1 cm IVC Diameter 1.7 cm M-MODE LA Ao Ratio MM 1.2 AV Cusp Separation MM 1.7 cm DOPPLER AV Peak Velocity 144.0 cm/s LVOT Peak Velocity 129.0 cm/s AV Area Cont Eq vti 2.8 cm squared AV Area Cont Eq pk 2.8 cm squared MV Peak Velocity 107.0 cm/s MV Area PHT 3.7 cm squared Mitral E to A Ratio 0.6 TR Peak Velocity 140.0 cm/s TR Peak Gradient 7.8 mmHg TV Peak E Velocity 69.0 cm/s PV Peak Velocity 133.0 cm/s FINDINGS Left Ventricle Normal left ventricular size and systolic function, EF . 65% (visual).mild left ventricular hypertrophy. No regional wall motion abnormalities. Grade I/IV diastolic dysfunction (abnormal relaxation filling pattern), normal to mildly elevated filling pressures. Right Ventricle Normal right ventricular size and systolic function. Right Atrium Normal right atrial size. Left Atrium Normal left atrial size. IA Septum Normal appearance of the interatrial septum. Mitral Valve No gross abnormalities Aortic Valve No gross abnormalities Tricuspid Valve No gross abnormalities noted Pulmonic Valve Mild pulmonary valve regurgitation. Pericardium No pericardial effusion. Aorta Normal diameter of the aortic root and ascending thoracic aorta. IVC Normal inferior vena cava. CONCLUSIONS Normal left ventricular size and systolic function, EF . 65% (visual).mild left ventricular hypertrophy. No regional wall motion abnormalities. Grade I/IV diastolic dysfunction (abnormal relaxation filling pattern), normal to mildly elevated filling pressures. Normal cardiac chamber sizes. No gross valvular abnormalities No intracardiac masses No pericardial effusion Comparison with the previous study is difficult because of the difference in the technical quality. Possibly no significant change Dr Lucy Alanis MD FACC (Electronically Signed) Final Date: 23 December 2024 20:16 S
[2024-12-25 11:08] LABS: Hematocrit 34.6 % (36-47); Hemoglobin 11.10 g/dL (11.27-16.99); Mean Corpuscular HGB Conc 32.1 g/dL (30-55); Mean Corpuscular Hemoglobin 35.2 pg (27-33); Mean Corpuscular Volume 109.8 fl (85-98); Nucleated Red Blood Cells % 0 %; Platelet Count 248 10^3/cmm (157-399); Red Blood Count 3.15 10^6/uL (3.85-5.65); White Blood Count 4.29 10^3/uL (3.29-11.43)
[2024-12-25 11:29] LABS: Alanine Aminotransferase 11 U/L (0-33); Albumin Level 3.4 g/dL (3.5-5.2); Alkaline Phosphatase 67 U/L (35-105); Anion Gap 14.8 (5-19); Aspartate Amino Transferase 13 U/L (0-32); Blood Urea Nitrogen 28 mg/dL (8-23); Calcium 8.9 mg/dL (8.5-10.5); Carbon Dioxide 22 mmol/L (22-29); Chloride 104 mmol/L (98-107); Globulin 4.5 g/dL (1.3-4.6); Glucose 119 mg/dL (65-115); Osmolality Calculated 291 mOsm/kg (285-295); Potassium 3.8 mmol/L (3.5-5.1); Sodium 137 mmol/L (136-145); Total Protein 7.9 g/dL (6.6-8.7)
[2025-01-01 13:29] LABS: Hematocrit 36.8 % (36-47); Hemoglobin 11.80 g/dL (11.27-16.99); Mean Corpuscular HGB Conc 32.1 g/dL (30-55); Mean Corpuscular Hemoglobin 34.7 pg (27-33); Mean Corpuscular Volume 108.2 fl (85-98); Nucleated Red Blood Cells % 0 %; Platelet Count 250 10^3/cmm (157-399); Red Blood Count 3.40 10^6/uL (3.85-5.65); White Blood Count 3.05 10^3/uL (3.29-11.43)
[2025-01-01] MEDS: alteplase 1 mg/mL SDV 2 mL 2 MG INTRACATH (13:42)
[2025-01-01 13:46] LABS: Alanine Aminotransferase 10 U/L (0-33); Albumin Level 3.4 g/dL (3.5-5.2); Alkaline Phosphatase 64 U/L (35-105); Anion Gap 13.6 (5-19); Aspartate Amino Transferase 15 U/L (0-32); Blood Urea Nitrogen 25 mg/dL (8-23); Calcium 8.7 mg/dL (8.5-10.5); Carbon Dioxide 24 mmol/L (22-29); Chloride 103 mmol/L (98-107); Creatinine Clr Calc Pharmacy 59.1082; Globulin 4.6 g/dL (1.3-4.6); Glucose 79 mg/dL (65-115); Osmolality Calculated 287 mOsm/kg (285-295); Potassium 3.6 mmol/L (3.5-5.1); Sodium 137 mmol/L (136-145); Total Protein 8.0 g/dL (6.6-8.7)
[2025-01-15 09:35] LABS: Hematocrit 36.2 % (36-47); Hemoglobin 11.40 g/dL (11.27-16.99); Mean Corpuscular HGB Conc 31.5 g/dL (30-55); Mean Corpuscular Hemoglobin 32.9 pg (27-33); Mean Corpuscular Volume 104.3 fl (85-98); Nucleated Red Blood Cells % 0 %; Platelet Count 232 10^3/cmm (157-399); Red Blood Count 3.47 10^6/uL (3.85-5.65); White Blood Count 3.16 10^3/uL (3.29-11.43)
[2025-01-15 09:55] LABS: Alanine Aminotransferase 8 U/L (0-33); Albumin Level 3.4 g/dL (3.5-5.2); Alkaline Phosphatase 65 U/L (35-105); Anion Gap 12.5 (5-19); Aspartate Amino Transferase 12 U/L (0-32); Blood Urea Nitrogen 25 mg/dL (8-23); Calcium 8.9 mg/dL (8.5-10.5); Carbon Dioxide 25 mmol/L (22-29); Chloride 102 mmol/L (98-107); Creatinine Clr Calc Pharmacy 42.9878; Globulin 4.9 g/dL (1.3-4.6); Glucose 112 mg/dL (65-115); Osmolality Calculated 287 mOsm/kg (285-295); Potassium 3.5 mmol/L (3.5-5.1); Sodium 136 mmol/L (136-145); Total Protein 8.3 g/dL (6.6-8.7)
== END 2025-01-19 23:59 | disposition home or self-care (01) ==
PROVIDERS: Internal Medicine Medical Oncology; PCP Family Medicine; Visit Provider Nurse Practitioner Family
DX: C50.312 Malignant neoplasm of lower-inner quadrant of left female breast; Z17.0 Estrogen receptor positive status [ER+]; C34.90 Malignant neoplasm of unspecified part of unspecified bronchus or lung; C78.7 Secondary malignant neoplasm of liver and intrahepatic bile duct; C78.6 Secondary malignant neoplasm of retroperitoneum and peritoneum; R03.0 Elevated blood-pressure reading, without diagnosis of hypertension; L27.0 Generalized skin eruption due to drugs and medicaments taken internally; L85.3 Xerosis cutis; L81.4 Other melanin hyperpigmentation; Z87.891 Personal history of nicotine dependence; Z92.3 Personal history of irradiation; Z79.811 Long term (current) use of aromatase inhibitors; Z79.899 Other long term (current) drug therapy; Z53.9 Procedure and treatment not carried out, unspecified reason
CPT/HCPCS: 36415; 36591; 36593; 80053; 83615; 85025; 93306; 99213; 99214; J2997

== ENCOUNTER 2025-01-18 08:38 | Outpatient (RCR) | payer MEDICARE, SELFPAY | END 2025-01-19 23:59 | disposition home or self-care (01) | LOC: SPT 08:38 | PROVIDERS: Visit Provider Internal Medicine Medical Oncology | DX: C34.90 Malignant neoplasm of unspecified part of unspecified bronchus or lung (principal); C50.312 Malignant neoplasm of lower-inner quadrant of left female breast; Z17.0 Estrogen receptor positive status [ER+] | CPT/HCPCS: 97161 ==

== ENCOUNTER → 2025-01-18 11:21 | Day surgery (SDC) | payer MEDICARE, SELFPAY ==
--- NOTE | 2025-01-18 11:27 | US_ITS ---
WS: [email or web address] ULTRASOUND-GUIDED THORACENTESIS CLINICAL INFORMATION: Malignant neoplasm of unspecified bronchus or lung, pleural PROCEDURE: Informed consent: The risks, benefits, and alternatives of the procedure were discussed with the patient. Verbal and written consent was obtained. Timeout: A timeout was performed to confirm the correct patient, procedure, and site. Site: RIGHT chest Preparation: A suitable skin site was identified. The patient was prepped and draped in usual sterile fashion. Lidocaine 1% was used for local anesthesia. Catheter: 4 Beninese One-Step catheter. Fluid Volume: 1000 ml Color: Clear yellow Complications: None. Patient disposition: Discharged from the department in stable condition. / thoracentesis [id number] IMPRESSION: Uncomplicated ultrasound-guided RIGHT thoracentesis.
[2025-01-18 11:35] VITALS: BP 155/79; PULSE 83; RESP 17; TEMP 36.7; O2SAT 96; BMI 21.9
[2025-01-18 12:54] VITALS: BP 124/66; PULSE 82; RESP 17; O2SAT 98
--- NOTE | 2025-01-18 13:04 | XR_ITS ---
WS: [id number] CHEST XRAY TECHNIQUE: Portable chest. CLINICAL INFORMATION: POST-THORA IN GI COMPARISON: 11/13/2024 FINDINGS: Heart: Normal cardiac silhouette. Esophageal hiatal hernia better visualized on the prior chest CT. Lungs: Hyperinflation. Nodular interstitial thickening throughout both lungs similar to the prior studies. RIGHT pleural effusion has essentially resolved post thoracentesis. Small to moderate LEFT pleural effusion. Surgical clips LEFT axilla. Masslike opacity LEFT lung apex better visualized on the recent chest CT. This appears decreased in size since the radiograph 11/13/2024 Bones: Osteopenia. XR/XR chest 1V portable [id number] IMPRESSION: Improved RIGHT pleural effusion postthoracentesis. No pneumothorax.
[2025-01-18 13:14] VITALS: BP 134/7; PULSE 76; RESP 16; O2SAT 100
[2025-01-18 13:31] VITALS: O2SAT 97
--- NOTE | 2025-01-18 13:53 | PC.NURSE ---
Cleared for departure per Dr. Robb
== END ==
PROVIDERS: Radiology Neuroradiology; Visit Provider Nurse Practitioner Family
PROC: (CPT 32554; principal; 2025-01-18 12:30)
DX: C34.90 Malignant neoplasm of unspecified part of unspecified bronchus or lung (principal)
CPT/HCPCS: 32555; 71045

== ENCOUNTER 2025-01-20 05:00 | Outpatient (RCR) | payer MEDICARE, SELFPAY | END 2025-02-18 23:59 | disposition home or self-care (01) | LOC: SPT 05:00 | PROVIDERS: PCP Family Medicine; Visit Provider Internal Medicine Medical Oncology | DX: C34.90 Malignant neoplasm of unspecified part of unspecified bronchus or lung (principal); C50.312 Malignant neoplasm of lower-inner quadrant of left female breast; Z17.0 Estrogen receptor positive status [ER+] | CPT/HCPCS: 97110 ==

== ENCOUNTER 2025-01-23 11:21 | Day surgery (SDC) | payer MEDICARE, SELFPAY ==
[2025-01-23 11:35] VITALS: BP 145/76; PULSE 87; RESP 16; TEMP 36.4; O2SAT 93
--- NOTE | 2025-01-23 11:41 | US_ITS ---
WS: [id number] ULTRASOUND-GUIDED THORACENTESIS, LEFT HISTORY: Pleural effusion Procedure, risks, and complications were explained to the patient. With the patient in an upright position, the skin over the LEFT posterior thorax was cleansed with ChloraPrep and anesthetized with 1% buffered lidocaine. A 5 Welsh Yueh needle is inserted into the pleural fluid without complication. A pproximately 1000 cc of red-tinged pleural fluid is removed without difficulty. / thoracentesis [id number] IMPRESSION: 1. LEFT thoracentesis yielding 1000 cc of fluid. 2. Chest radiograph to follow to evaluate for pneumothorax.
--- NOTE | 2025-01-23 12:28 | XR_ITS ---
WS: [id number] PORTABLE CHEST HISTORY: Post thoracentesis, LEFT COMPARISON: 02/18/2025 Status post LEFT thoracentesis. No pneumothorax is identified. Mild blunting of the costophrenic angles from small bilateral pleural effusions. Scattered pulmonary nodules are reidentified throughout both lungs. Mild fullness overlying the RIGHT hilum is identified. Right-sided Mediport. Cardiac size: Normal. Mediastinum/Aorta: Mild atherosclerosis aorta. No osseous abnormality seen. XR/XR chest 1V portable [id number] IMPRESSION: 1. No pneumothorax status post LEFT thoracentesis. 2. Mild blunting of the costophrenic angles. Small effusions versus pleural th ickening.
--- NOTE | 2025-01-23 12:40 | PC.NURSE ---
CXR read per Dr. Brooks. Ok for pt to be discharged. Pt educated to return to ED for SOB, pain, or bleeding from site. Verbalized understanding.
[2025-01-23 12:42] VITALS: BP 136/66; PULSE 82; RESP 18; O2SAT 93
== END 2025-01-23 12:42 | disposition home or self-care (01) ==
LOC: GILAB 11:22
PROVIDERS: Radiology Diagnostic Radiology; PCP Family Medicine; Visit Provider Nurse Practitioner Family
PROC: (CPT 32554; principal; 2025-01-23 12:30)
DX: J90 Pleural effusion, not elsewhere classified (principal)
CPT/HCPCS: 32555; 71045

== ENCOUNTER 2025-02-06 15:00 | Oncology outpatient (recurring) (ONCR) | payer MEDICARE, SELFPAY ==
[2025-01-29 09:45] LABS: Hematocrit 37.3 % (36-47); Hemoglobin 11.90 g/dL (11.27-16.99); Mean Corpuscular HGB Conc 31.9 g/dL (30-55); Mean Corpuscular Hemoglobin 32.2 pg (27-33); Mean Corpuscular Volume 101.1 fl (85-98); Nucleated Red Blood Cells % 0 %; Platelet Count 287 10^3/cmm (157-399); Red Blood Count 3.69 10^6/uL (3.85-5.65); White Blood Count 5.34 10^3/uL (3.29-11.43)
[2025-01-29 10:03] LABS: Alanine Aminotransferase 10 U/L (0-33); Albumin Level 3.2 g/dL (3.5-5.2); Alkaline Phosphatase 60 U/L (35-105); Anion Gap 13.7 (5-19); Aspartate Amino Transferase 11 U/L (0-32); Blood Urea Nitrogen 26 mg/dL (8-23); Calcium 8.9 mg/dL (8.5-10.5); Carbon Dioxide 22 mmol/L (22-29); Chloride 104 mmol/L (98-107); Globulin 4.4 g/dL (1.3-4.6); Glucose 146 mg/dL (65-115); Osmolality Calculated 289 mOsm/kg (285-295); Potassium 3.7 mmol/L (3.5-5.1); Sodium 136 mmol/L (136-145); Total Protein 7.6 g/dL (6.6-8.7)
--- NOTE | 2025-02-06 15:00 | USCV_ITS ---
Hannah Khoury Age: 74 Gender: F : 1950 Exam Date: 02/06/2025 15:24 Ordering Phys: Adriana Malloy APRN Technologist: [place] [facility] [place]: high risk meds BP: / HR: Rhythm: Sinus Technical Quality: MEASUREMENTS (Male / Female) Normal Values FINDINGS Left Ventricle Normal left ventricular size and systolic function, EF 70%.mild left ventricular hypertrophy. No regional wall motion abnormalities. Right Ventricle Normal right ventricular size and systolic function. Right Atrium Normal right atrial size. Left Atrium Normal left atrial size. IA Septum Normal appearance of the interatrial septum. Mitral Valve No gross abnormalities noted Aortic Valve No gross abnormalities noted Tricuspid Valve No gross abnormalities noted Pulmonic Valve No gross abnormalities noted Pericardium No pericardial effusion. Aorta Normal aortic annulus size. IVC Inferior vena cava not visualized. CONCLUSIONS Normal left ventricular size and systolic function, EF 70%.mild left ventricular hypertrophy. No regional wall motion abnormalities. Normal cardiac chamber sizes. No gross valvular abnormalities There is no pericardial effusion. There are no intracardiac masses. Compared to the study from 12/22/2024, no significant change in the 2D findings Dr Lucy Alanis MD FACC (Electronically Signed) Final Date: 09 February 2025 15:33 S
== END 2025-02-18 23:59 | disposition home or self-care (01) ==
LOC: RAD 02-07 → ONCMED 02-07 09:13
PROVIDERS: PCP Family Medicine; Visit Provider Nurse Practitioner Family
DX: C34.90 Malignant neoplasm of unspecified part of unspecified bronchus or lung; J90 Pleural effusion, not elsewhere classified; I51.7 Cardiomegaly; Z53.9 Procedure and treatment not carried out, unspecified reason
CPT/HCPCS: 36591; 80053; 85025; 93308; 99214

== ENCOUNTER 2025-02-19 05:00 | Outpatient (RCR) | payer MEDICARE, SELFPAY | END 2025-03-21 23:59 | disposition home or self-care (01) | LOC: SPT 05:00 | PROVIDERS: PCP Family Medicine; Visit Provider Internal Medicine Medical Oncology | DX: C34.90 Malignant neoplasm of unspecified part of unspecified bronchus or lung (principal); C50.312 Malignant neoplasm of lower-inner quadrant of left female breast | CPT/HCPCS: 97110 ==

== ENCOUNTER 2025-02-19 05:00 | Outpatient (RCR) | payer MEDICARE, SELFPAY | END 2025-03-21 23:59 | disposition home or self-care (01) | LOC: SPT 05:00 | PROVIDERS: Visit Provider Nurse Practitioner Family | DX: R42 Dizziness and giddiness (principal) | CPT/HCPCS: 95992; 97161 ==

== ENCOUNTER 2025-02-27 13:29 | Outpatient (CLI) | payer MEDICARE, SELFPAY ==
--- NOTE | 2025-02-27 13:45 | MR_ITS ---
WS: [id number] MRI HEAD WITH CONTRAST TECHNIQUE: Sagittal T1, T2 axial, T2 axial FLAIR, axial susceptibility weighted imaging, axial diffusion weighted images, and coronal T2 images were obtained. Pre and post-T1 axial and post T1 coronal images. ADC and FSPGR images. CLINICAL INFORMATION: vertigo, difficulty walking, fever, weight loss COMPARISON: MRI 09/14/2024 FINDINGS: No evidence of enhancing intracranial metastatic disease. No evidence of intracranial mass or mass effect. Normal dural venous sinuses. Normal vascular flow voids at the skull base. Mild mucosal thickening paranasal sinuses. Mastoid air cells are well aerated. Normal posterior nasopharynx. No restricted diffusion to suggest acute ischemia. Mild small vessel changes. Mild parenchymal volume loss. Normal posterior fossa. Normal vascular flow voids at the skull base. No extra-axial fluid collections. No hemosiderin on the susceptibility weighted images. MR/MR head wo/w con [id number] IMPRESSION: 1. No evidence of enhancing intracranial metastatic disease 2. Mild small vessel changes with mild parenchymal volume loss. 3. No evidence of restricted diffusion to suggest acute ischemia. 4. No hemosiderin. 5. No significant interval changes.
[2025-02-27] MEDS: gadobenate dimeglumine 20 mL vial 12 ML IV (14:25)
== END 2025-02-27 13:30 | disposition home or self-care (01) ==
LOC: RAD 13:30
PROVIDERS: PCP Family Medicine; Visit Provider Nurse Practitioner Family
DX: C34.90 Malignant neoplasm of unspecified part of unspecified bronchus or lung (principal); J34.89 Other specified disorders of nose and nasal sinuses; I67.89 Other cerebrovascular disease; R63.4 Abnormal weight loss; R42 Dizziness and giddiness; R26.2 Difficulty in walking, not elsewhere classified
CPT/HCPCS: 70553

== ENCOUNTER 2025-03-06 09:58 | Oncology outpatient (recurring) (ONCR) | payer MEDICARE, SELFPAY ==
--- NOTE | 2025-03-06 11:00 | CTR_ITS ---
PROCEDURE INFORMATION: Exam: CT Chest With Contrast; Diagnostic Exam date and time: 03/06/2025 11:17 AM Age: 74 years old Clinical indication: Condition or disease; Other: Lung and breast cancer; Prior surgery; Surgery date: 6+ months; Surgery type: Port, left breast lumpectomy; Additional info: Surveillance TECHNIQUE: Imaging protocol: Diagnostic computed tomography of the chest with contrast. Radiation optimization: All CT scans at this facility use at least one of these dose optimization techniques: automated exposure control; mA and/or kV adjustment per patient size (includes targeted exams where dose is matched to clinical indication); or iterative reconstruction. Contrast material: OMNI 350; Contrast volume: 100 ml; Contrast route: INTRAVENOUS (IV); COMPARISON: 1. CT chest abdpel w/*[id number] 12/29/2024 10:[address] chest abdpel w/*[id number] 09/14/2024 2:57 PM RADIATION DOSE METRICS: Total DLP (mGy-cm): 565.84 FINDINGS: Tubes, catheters and devices: Right chest port with catheter tip at superior vena cava-right atrial junction level again noted. Thyroid: Visualized thyroid gland appears grossly unremarkable. Lungs: 17 x 17 mm nodule left upper lobe image 18 series 4, 20 x [address] 2 months ago. This corresponds with the patient's history of lung and breast cancer. Multiple patchy nodular densities in the lungs again noted without marked change compared to previous exam 2 months ago. Small amount of compressive atelectasis inferior aspect left lower lobe increased compared to previous exam. Small amount of compressive atelectasis right lower lobe again noted. Pleural spaces: Moderate to large sized bilateral pleural effusions appear mildly decreased in size compared to chest CT 2 months ago. No pneumothorax. Heart: No pericardial effusion. No right heart strain noted. RV/LV ratio approximately 0.94. Pulmonary artery nonenlarged. Mediastinal space: No anterior mediastinal mass. Lymph nodes: No axillary adenopathy. No mediastinal adenopathy noted. No hilar adenopathy noted. Vasculature: Atherosclerotic calcification thoracic aorta. No aneurysm or dissection thoracic aorta. Pulmonary arteries are nonenlarged. No saddle embolus. Filling defects involving some right upper lobe and right lower lobe segmental artery branches not present on chest CT 2 months ago. No filling defects noted in the left pulmonary artery branches. Diaphragm: Lwetbzeq-uo-dvawq size hiatal hernia again noted. Small amount of contrast in distal esophagus may represent some esophageal dysmotility and/or some gastroesophageal reflux. Esophagus otherwise appears grossly unremarkable. Bones/joints: Some osteopenia. No lytic or blastic process noted. Soft tissues: Surgical clips left axillary region again noted. Some diffuse prominence involving skin of each breast with similar finding on previous CT. No distinct chest wall mass noted. Some anasarca appears present slightly greater on left. Dr. Soto at time of dictation on 03/06/2025 at approximately 6:40 p.m.. 2. Minimal decreased size of nodule left upper lobe lung compared to previous chest CT exam 2 months ago. No marked change in bilateral pulmonary findings compared to previous exam 2 months ago. 3. Brxeubth-sn-bvpdq bilateral pleural effusions again noted. 4. Hiatal hernia again noted. PROCEDURE INFORMATION: Exam: CT Abdomen And Pelvis With Contrast Exam date and time: 03/06/2025 11:17 AM Age: 74 years old Clinical indication: Condition or disease; Other: Lung and breast cancer; Prior surgery; Surgery date: 6+ months; Surgery type: Port, left breast lumpectomy; Additional info: Surveillance TECHNIQUE: Imaging protocol: Computed tomography of the abdomen and pelvis with contrast. Radiation optimization: All CT scans at this facility use at least one of these dose optimization techniques: automated exposure control; mA and/or kV adjustment per patient size (includes targeted exams where dose is matched to clinical indication); or iterative reconstruction. Contrast material: OMNI 350; Contrast volume: 100 ml; Contrast route: INTRAVENOUS (IV); COMPARISON: CT chest abdpel w/*[id number] 12/29/2024 10:54 AM RADIATION DOSE METRICS: Total DLP (mGy-cm): 565.84 FINDINGS: Diaphragm: Ucpxuyir-wf-rndyc size hiatal hernia again noted. Liver: No focal liver lesion noted. Gallbladder and biliary ducts: Gallbladder distended with transverse diameter 4.1 cm. No calcified stones noted in the gallbladder. No obvious biliary ductal dilatation. Pancreas: Pancreas appears unremarkable. No pancreatic ductal dilatation. Spleen: Small calcified granulomas of the spleen. Spleen appears unremarkable. Adrenal glands: Adrenal glands appear unremarkable. Kidneys and ureters: No nephrolithiasis noted. No hydronephrosis. 11 mm and smaller hypodensities of right kidney probably representing cysts. 8 mm and smaller hypodensities of left kidney probably representing cysts. No renal neoplasm noted. Ureters appear grossly unremarkable. Stomach and bowel: Oral contrast in stomach and majority of the small bowel. Faint amount of oral contrast in the most distal ileum. Terminal ileum appears grossly unremarkable. Appendix: Appendix not definitely visualized; 13 mm diameter enhancing structure posterior to right colon image 52 series 5 possibly representing appendicitis when compared to previous CT 6 months ago. Some wall thickening suggested of right colon just superior to the ileocecal valve extending to midportion of right colon. Minimal adjacent fat stranding. This may represent colitis, nonspecific etiology. Intraperitoneal space: No pneumoperitoneum. No obvious ascites. Vasculature: Portal vein appears grossly patent. Hepatic veins appear patent. Atherosclerotic calcification. No aneurysm. Inferior vena cava appears grossly unremarkable. Deep venous thrombosis appears present in right common femoral vein and right superficial femoral vein. Lymph nodes: No adenopathy noted. Urinary bladder: Bladder appears grossly unremarkable. Reproductive: Small uterus with small calcifications appears present similar to previous exam. Bilateral ovaries suggested. No adnexal mass noted. Bones/joints: Some hypertrophic changes of the spine. Mild osteopenia. No lytic or blastic process noted. Soft tissues: Anasarca appears present. Surgical clips left breast. No mass noted in the abdominal wall. CT/CT chest abdpel w/*[id number] IMPRESSION: 1. Interval development of pulmonary thromboembolism involving right upper and right lower lobes compared to CT exam 2 months ago. No obvious right heart strain noted. Critical call result made and findings discussed with IMPRESSION: 1. Deep venous thrombosis right common femoral and right superficial femoral veins. 2. Appendicitis can not be excluded; please correlate with surgical history. Findings suggest right colitis of uncertain etiology. This may represent infectious or inflammatory process. 3. Distended gallbladder. Gallbladder ultrasound may be helpful for further evaluation when patient's condition permits. 4. Bilateral renal cysts again noted. 5. No adenopathy noted. 6. Critical call result made and findings discussed with Dr. Soto at time of dictation on 03/06/2025 at approximately 6:40 p.m..
[2025-03-06] MEDS: iohexol 350 mg/mL 500 mL Btl (per mL) PO (11:23)
[2025-03-06] MEDS: iohexol 350 mg/mL 500 mL Btl (per mL) IV (11:23)
== END 2025-03-12 10:07 | disposition home or self-care (01) ==
LOC: ONCMED 10:19 → RAD 10:20 → ONCMED 03-07 10:28
PROVIDERS: PCP Family Medicine; Visit Provider Internal Medicine Medical Oncology
DX: C34.90 Malignant neoplasm of unspecified part of unspecified bronchus or lung (principal); Z95.828 Presence of other vascular implants and grafts; N28.1 Cyst of kidney, acquired; K82.9 Disease of gallbladder, unspecified; I82.411 Acute embolism and thrombosis of right femoral vein; I26.99 Other pulmonary embolism without acute cor pulmonale; K44.9 Diaphragmatic hernia without obstruction or gangrene; M85.80 Other specified disorders of bone density and structure, unspecified site
CPT/HCPCS: 71260; 74177; 96523

== ENCOUNTER 2025-03-06 19:09 | Emergency (ER) | payer MEDICARE, SELFPAY ==
[2025-03-06 19:28] VITALS: BP 164/69; PULSE 89; RESP 18; TEMP 36.4; O2SAT 96; BMI 21.1
--- NOTE | 2025-03-06 19:34 | ECG_ITS ---
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 Measurements Intervals [place] Rate: 80 P: 64 PA: 174 QRS: 24 QRSD: 83 T: 33 QT: 277 QTc: 320 Interpretive Statements SINUS RHYTHM LOW QRS VOLTAGE IN PRECORDIAL LEADS [QRS DEFLECTION < 1.0 mV IN CHEST LEADS] POSSIBLE RIGHT VENTRICULAR CONDUCTION DELAY [RSR (QR) IN V1/V2] MODERATE ST DEPRESSION [0.05+ mV ST DEPRESSION] Compared to ECG 10/30/2024 10:10:59 ST (T wave) deviation now present Myocardial infarct finding no longer present Electronically Signed On 03-06-2025 21:21:17 MONORAIL HOOKER by Lucy Alanis M.D. [id number]
[2025-03-06 20:31] LABS: INR 0.92 (0.8-1.2); Prothrombin Time 13.00 SECONDS (12.1-14.9)
[2025-03-06 20:32] LABS: Partial Thromboplastin Time 25.7 SECONDS (23.9-36.7)
[2025-03-06 20:38] LABS: Troponin(5th) Baseline 14 ng/L (0-10)
[2025-03-06 20:44] LABS: Hematocrit 35.5 % (36-47); Hemoglobin 11.20 g/dL (11.27-16.99); Mean Corpuscular HGB Conc 31.5 g/dL (30-55); Mean Corpuscular Hemoglobin 30.4 pg (27-33); Mean Corpuscular Volume 96.2 fl (85-98); Nucleated Red Blood Cells % 0 %; Platelet Count 242 10^3/cmm (157-399); Red Blood Count 3.69 10^6/uL (3.85-5.65); White Blood Count 2.90 10^3/uL (3.29-11.43)
[2025-03-06 20:48] LABS: Alanine Aminotransferase 8 U/L (0-33); Albumin Level 3.1 g/dL (3.5-5.2); Alkaline Phosphatase 86 U/L (35-105); Anion Gap 14.7 (5-19); Aspartate Amino Transferase 12 U/L (0-32); Blood Urea Nitrogen 21 mg/dL (8-23); Calcium 8.9 mg/dL (8.5-10.5); Carbon Dioxide 27 mmol/L (22-29); Chloride 101 mmol/L (98-107); Globulin 3.2 g/dL (1.3-4.6); Glucose 117 mg/dL (65-115); NT Pro B Type Natriuretic Pept 49 pg/mL (0-125); Osmolality Calculated 292 mOsm/kg (285-295); Potassium 3.7 mmol/L (3.5-5.1); Sodium 139 mmol/L (136-145); Total Protein 6.3 g/dL (6.6-8.7)
--- NOTE | 2025-03-06 20:52 | ECG_ITS ---
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 Measurements Intervals [place] Rate: 76 P: 60 ID: [id number] QRS: -1 QRSD: 86 T: -17 QT: 362 QTc: 407 Interpretive Statements SINUS RHYTHM LOW QRS VOLTAGE IN PRECORDIAL LEADS [QRS DEFLECTION < 1.0 mV IN CHEST LEADS] POSSIBLE RIGHT VENTRICULAR CONDUCTION DELAY [RSR (QR) IN V1/V2] MODERATE ST DEPRESSION [0.05+ mV ST DEPRESSION] Compared to ECG 03/06/2025 19:34:21 No significant changes Electronically Signed On 03-06-2025 21:40:08 ADAPTED PHYSICAL EDUCATION TEACHER by Lucy Alanis M.D. [email or web address]
--- NOTE | 2025-03-06 22:10 | W.ED.RECABL ---
HPI - Recheck/Abnormal Lab/Rx General: Chief Complaint: Recheck/Abnormal Lab/Rx Stated Complaint: Sent in from doctor for Blood clots Time Seen by Provider: 03/06/25 19:20 Source: patient and old records reviewed Mode of arrival: ambulatory Limitations: no limitations History of Present Illness: This patient is a 74-year-old female with pertinent medical history of metastatic primary lung cancer who presents to the emergency department as directed by primary care. Patient earlier today had routine CTA chest abdomen pelvis, of which revealed a right sided pulmonary embolism and the patient was called to present to the ED. To me, patient is denying any symptoms, states that chronically she is short of breath secondary to her lung cancer history but this is not worsening. She has SpO2 monitor at home of which she uses regularly and has not noted any discrepancies on this, and her O2 is normal on room air at this time with her not appearing in any respiratory distress. She is not endorsing any chest pain, hemoptysis, palpitations, or any other concerning symptoms. She is not on any blood thinner. The CT did comment on a possible early appendicitis to the right lower quadrant, but she has no complaints of abdominal pain, no fevers, no diarrhea, and no other symptoms in regards to this at this time. She notes that she has chronic vertigo, but recently had a head MRI, days ago that ruled out any intracranial metastasis. On the CT it was commented on it there was no concerning findings for right heart strain, patient has no other complaints at this time. MD complaint: other (Sent by PCP due to pulmonary embolism on CTA earlier today) Related Data Home Medications ?Medication ?Instructions ?Recorded ?Confirmed calcium carbonate 500 mg PO DAILY PRN Heartburn 12/10/21 02/26/25 cholecalciferol (vitamin D3) 75 75 mcg PO DAILY 12/10/21 02/26/25 mcg (3,000 unit) tablet esomeprazole magnesium 20 mg 20 mg PO DAILY 12/10/21 02/26/25 capsule,delayed release (Nexium) denosumab 60 mg/mL subcutaneous 60 mg SUBCUT .[id number] 02/18/24 02/26/25 syringe (Prolia) folic acid 1 mg tablet 1 mg PO DAILY 01/17/25 02/26/25 Previous Rx's ?Medication ?Instructions ?Recorded albuterol sulfate 2.5 mg/3 mL 2.5 mg (3 mL) inhalation QID PRN 02/18/24 (0.083 %) solution for nebulization shortness of breath or wheezing #1,080 mL albuterol sulfate 90 mcg/actuation 2 puff inhalation QID PRN 02/18/24 aerosol inhaler shortness of breath or wheezing #8.5 grams lorazepam 0.5 mg tablet 0.5 mg PO TID PRN severe nausea 02/22/24 #30 tabs prochlorperazine maleate 10 mg 10 mg PO Q6H PRN nausea and 02/22/24 tablet (Compazine) vomiting #60 tabs triamcinolone acetonide 0.1 % 1 applic topical TID PRN itching 08/22/24 topical cream #15 grams megestrol 800 mg/20 mL (20 mL) 800 mg (20 mL) PO DAILY #600 mL 10/24/24 oral suspension anastrozole 1 mg tablet 1 mg PO DAILY #60 tabs 12/21/24 potassium chloride 20 mEq 20 meq PO TID #90 tabs 12/29/24 tablet,extended release (K-Tab) zongertinib 60 mg tablet 120 mg (2 x 60 mg) PO DAILY #60 02/05/25 tabs furosemide 20 mg tablet (Lasix) 20 mg PO DAILY #30 tabs 02/12/25 ondansetron 8 mg disintegrating 8 mg PO Q8H PRN Nausea And 02/26/25 tablet Vomiting #90 tabs apixaban 5 mg tablet (Eliquis) 5 mg PO BID #60 tabs 03/06/25 Allergies Allergy/AdvReac Type Severity Reaction Status Date / Time No Known Allergies Allergy Verified 03/06/25 19:33 Review of Systems General: Reports: 10 or more systems reviewed and unremarkable except in HPI and below Const: Reports: other (Abnormal CTA); Denies: fever(s), chills or fatigue Eyes: Denies: change in vision ENMT: Denies: throat pain, ear or mastoid pain or nasal discharge Card: Denies: chest pain, palpitations, swelling of feet/ankles or lightheadedness Resp: Reports: dyspnea (Chronic); Denies: productive cough, wheezing or hemoptysis GI: Denies: abdominal pain, nausea, vomiting, diarrhea or constipation : Denies: flank pain, difficulty voiding, dysuria or urinary frequency Musc: Denies: neck pain, back pain or joint pain Skin/Breast: Denies: rash Neuro: Denies: headache(s), numbness in extremities or weakness in extremities PFSH ED PFSH: Medical History Pericarditis noted on CT Osteoporosis osteoporosis on DEXA in past, treated w/ Prolia Metastatic primary lung cancer adenocarcinoma; mets to liver, omentum, supraclavicular lymph nodes; Dr. Chambers at for onc and Dr. Brown/Kwabena for local onc--on chemo Osteopenia Breast cancer L breast--just had radiation and anastrazole GERD (gastroesophageal reflux disease) Vitamin D deficiency Surgical History History of lung biopsy bronchoscopy bx IDRIS 11.6.24 H/O vein stripping bilateral History of lumpectomy of left breast (05/04/19) Left breast lumpectomy with axillary sentinel lymph node biopsy History of bunionectomy of right great toe Family History Sister Cancer breast Family/Other Cancer Breast, brain Mother Dementia Hypertension Other Diabetes Suicide Denies family history of CAD (coronary artery disease) Clotting disorder Hyperlipidemia Psychiatric illness Chronic kidney disease (CKD) Anesthesia complication Bleeding disorder Lung disease Stroke Social History Smoking and tobacco/nicotine status: never used tobacco/nicotine Quit status (tobacco/nicotine): has quit using Year quit tobacco: 1976 Former quit date comment: approx. 7 years Alcohol intake: current Alcohol intake frequency: holidays/special occasions only Substance/Drug Use: never Household members: spouse Marital status: Number of children: 3 Highest education level completed: Master's Degree Current occupational status: retired Previous occupational history: teacher and still teaches Physical Exam Const: COMMON NORMALS: no acute distress, patient oriented x3 and no limitations GENERAL APPEARANCE: cooperative, comfortable and well developed ORIENTATION/CONSCIOUSNESS: Yes awake, Yes oriented to person, Yes oriented to place and Yes oriented to time HENMT: COMMON NORMALS: normocephalic, atraumatic and hearing grossly normal bilaterally HEAD & SCALP: normocephalic and atraumatic Eye: COMMON NORMALS: Equal, round and reactive pupils present, EOMs intact bilaterally and conjunctivae normal CONJUNCTIVA: Yes conjunctivae normal PUPIL: Yes Equal, round and reactive pupils present Neck/C-Spine: COMMON NORMALS: full ROM, supple and no JVD Resp: COMMON NORMALS: normal respiratory effort, No retractions, No use of accessory muscles and clear to auscultation bilaterally AUSCULTATION: clear to auscultation bilaterally Cardio: COMMON NORMALS: no JVD, regular rate, regular rhythm, No clicks present (Cardio), No murmurs present (Cardio) and No rub (Cardio) RATE: regular rate RHYTHM: regular rhythm GI: COMMON NORMALS: Normal to inspection, nondistended, normoactive bowel sounds present, Soft to palpation and non-tender AUSCULTATION: Yes normoactive bowel sounds PALPATION: Yes Soft to palpation RECTAL EXAM: deferred Extremity: COMMON NORMALS: normal to inspection, full ROM and capillary refill normal Neuro: COMMON NORMALS: patient oriented x3, moves all extremities, no focal motor deficits and no sensory deficits noted SENSORIUM/ORIENTATION: Yes oriented to person, Yes oriented to place and Yes oriented to time Psych: COMMON NORMALS: mental status grossly normal and Normal thought process present THOUGHT PROCESS: Normal thought process present Skin: COMMON NORMALS: no rashes or lesions noted GENERAL SKIN EXAM: no rashes or lesions noted Course Vital Signs: Vital signs: Vital Signs Temperature 97.6 F 03/06/25 19:28 Pulse Rate 78 03/06/25 22:11 Respiratory Rate 18 03/06/25 19:28 Blood Pressure 117/50 03/06/25 22:11 Pulse Oximetry 92 03/06/25 22:11 Oxygen Delivery Me thod Room Air 03/06/25 19:28 MDM - Recheck/Abnormal Lab/Rx Medical Decision Making Patient presented for evaluation, after being told by PCP that she was diagnosed with pulmonary embolism on a CTA performed earlier today. She arrives with normal vitals, specifically is oxygenating well on room air and no complaints of acute shortness of breath. Positive history of adenocarcinoma of lung, of which has been very stable and she is no longer on any chemotherapy. The CTA was reviewed in its entirety, showing a new filling defect to the right upper and lower lobe that was concerning for thromboembolism but no evidence of right heart strain. This is supported by a negative delta troponin here in the emergency department, stable CBC and CMP, and a negative BNP. Clinically at this time this patient appears well enough for outpatient initiation of Eliquis as opposed to hospitalization, and this is discussed with Dr. Stephens, hospitalist, who agrees with this disposition at this time. Family in the room also agrees with this, including the patient who knows to return if she starts having worsening shortness of breath, oxygen saturations below 90% on room air, or chest pain. She has a follow-up appointment on Wednesday and we will start her on Eliquis here in the ED. For her reports of dizziness and being that we are starting her on Eliquis, DME order will be placed for a walker for ambulation assistance. Lab Data 03/06/25 20:11 03/06/25 20:11 Laboratory Results WBC 2.90 10^3/uL (3.29-11.43) L 03/06/25 20:11 RBC 3.69 10^6/uL (3.85-5.65) L 03/06/25 20:11 Hgb 11.20 g/dL (11.27-16.99) L 03/06/25 20:11 Hct 35.5 % (36-47) L 03/06/25 20:11 MCV 96.2 fl (85-98) 03/06/25 20:11 MCH 30.4 pg (27-33) 03/06/25 20:11 MCHC 31.5 g/dL (30-55) 03/06/25 20:11 RDW 13.4 % (12.1-15.1) 03/06/25 20:11 Plt Count 242 10^3/cmm (157-399) 03/06/25 20:11 MPV 9.1 fL (7.4-10.4) 03/06/25 20:11 Neut % (Auto) 65.8 % 03/06/25 20:11 Lymph % (Auto) 21.4 % 03/06/25 20:11 Alcorn % (Auto) 9.0 % 03/06/25 20:11 Eos % (Auto) 2.8 % 03/06/25 20:11 Baso % (Auto) 0.7 % 03/06/25 20:11 Neut # (Auto) 1.91 10^3/uL (1.8-7.7) 03/06/25 20:11 Lymph # (Auto) 0.6 10^3/uL (0.8-4.8) L 03/06/25 20:11 Alcorn # (Auto) 0.3 10^3/uL (0.2-0.9) 03/06/25 20:11 Eos # (Auto) 0.1 10^3/uL (0.0-0.8) 03/06/25 20:11 Baso # (Auto) 0.0 10^3/uL (0.0-0.1) 03/06/25 20:11 Nucleated RBC % (auto) 0 % 03/06/25 20:11 Nucleated RBCs # 0.0 /100WBC 03/06/25 20:11 PT 13.00 SECONDS (12.1-14.9) 03/06/25 20:11 INR 0.92 (0.8-1.2) 03/06/25 20:11 APTT 25.7 SECONDS (23.9-36.7) 03/06/25 20:11 Sodium 139 mmol/L (136-145) 03/06/25 20:11 Potassium 3.7 mmol/L (3.5-5.1) 03/06/25 20:11 Chloride 101 mmol/L (98-107) 03/06/25 20:11 Carbon Dioxide 27 mmol/L (22-29) 03/06/25 20:11 Anion Gap 14.7 (5-19) 03/06/25 20:11 BUN 21 mg/dL (8-23) 03/06/25 20:11 Creatinine 1.1 mg/dL (0.5-0.9) H 03/06/25 20:11 GFR Calculation Not Reportable 03/06/25 20:11 Glucose 117 mg/dL (65-115) H 03/06/25 20:11 Calculated Osmolality 292 mOsm/kg (285-295) 03/06/25 20:11 Calcium 8.9 mg/dL (8.5-10.5) 03/06/25 20:11 Total Bilirubin 0.2 mg/dL (0.15-1.2) 03/06/25 20:11 AST 12 U/L (0-32) 03/06/25 20:11 ALT 8 U/L (0-33) 03/06/25 20:11 Alkaline Phosphatase 86 U/L (35-105) 03/06/25 20:11 Troponin T Baseline 14 ng/L (0-10) H 03/06/25 20:11 Troponin T 60 Minute 12.29 ng/L (0-10) H 03/06/25 21:03 Delta Troponin T -1.71 ABS# (0-10) L 03/06/25 21:03 NT-Pro-B Natriuret Pep 49 pg/mL (0-125) 03/06/25 20:11 Total Protein 6.3 g/dL (6.6-8.7) L 03/06/25 20:11 Albumin 3.1 g/dL (3.5-5.2) L 03/06/25 20:11 Globulin 3.2 g/dL (1.3-4.6) 03/06/25 20:11 No radiology studies performed this visit Discharge Plan Discharge Patient Disposition: Home Clinical Impression: Pulmonary embolism Condition: Stable Prescriptions: New Eliquis 5 mg tablet 5 mg PO BID Qty: 60 0RF Rx Instructions: Take 10mg (2 tabs) PO BID for 10 days, then take 5mg (1 tab) PO BID from then on until through with treatment No Action cholecalciferol (vitamin D3) 75 mcg (3,000 unit) tablet 75 mcg PO DAILY esomeprazole magnesium [Nexium] 20 mg capsule,delayed release(DR/EC) 20 mg PO DAILY calcium carbonate 500 mg calcium (1,250 mg) tablet,chewable 500 mg PO DAILY PRN (Reason: Heartburn) albuterol sulfate 2.5 mg /3 mL (0.083 %) solution for nebulization 2.5 mg inhalation QID PRN (Reason: shortness of breath or wheezing) Qty: 1080 3RF albuterol sulfate 90 mcg/actuation HFA aerosol inhaler 2 puff inhalation QID PRN (Reason: shortness of breath or wheezing) Qty: 8.5 5RF Prolia 60 mg/mL syringe 60 mg SUBCUT .[id number] prochlorperazine maleate [Compazine] 10 mg tablet 10 mg PO Q6H PRN (Reason: nausea and vomiting) Qty: 60 2RF lorazepam 0.5 mg tablet 0.5 mg PO TID PRN (Reason: severe nausea) Qty: 30 3RF Rx Instructions: 1/2 to 1 tablet as needed for severe nausea. megestrol 800 mg/20 mL (20 mL) suspension 800 mg PO DAILY Qty: 600 2RF ondansetron 8 mg tablet,disintegrating 8 mg PO Q8H PRN (Reason: Nausea And Vomiting) Qty: 90 0RF triamcinolone acetonide 0.1 % cream 1 applic topical TID PRN (Reason: itching) Qty: 15 0RF anastrozole 1 mg tablet 1 mg PO DAILY Qty: 60 3RF Rx Instructions: TAKE 1 TABLET BY MOUTH EVERY DAY potassium chloride [K-Tab] 20 mEq tablet extended release 20 meq PO TID Qty: 90 0RF zongertinib 60 mg tablet 120 mg PO DAILY Qty: 60 0RF furosemide [Lasix] 20 mg tablet 20 mg PO DAILY Qty: 30 0RF folic acid 1 mg tablet 1 mg PO DAILY Rx Instructions: TAKE 1 TABLET BY MOUTH EVERY DAY Discharge Orders: Discharge ED (Routine); Ordered 03/06/25 Ordered By: Gabino Foster Other Ambulatory Orders: DME: Andrae (Order) Location: None Selected Ordered By: Gabino Foster Referrals: Angelina Neely MD [Primary Care Provider, Family Practice] Patient Instructions: Patient Portal & Neda Instructions Activity Restrictions/Additional Instructions: Pulmonary Embolism Discharge Instructions Diagnosis: You have been diagnosed with pulmonary embolism (blood clots in the lungs) affecting your right upper and lower lung lobes. Your Condition: You are stable for discharge home. Your heart function is normal, and you do not require supplemental oxygen. Medication Instructions: You will be started on apixaban (Eliquis) to prevent the blood clots from getting larger and to reduce the risk of new clots forming: - First 7 days: Take 10 mg by mouth twice daily (morning and evening) - After 7 days: Take 5 mg by mouth twice daily (morning and evening) Important medication guidelines: - Take apixaban exactly as prescribed?do not skip doses, as missing doses increases your risk of developing new blood clots - If you miss a dose, take it as soon as you remember on the same day, then resume your regular twice-daily schedule. Do not double the dose - Continue taking this medication until instructed otherwise by your primary care provider - Avoid [id number] pain medications like ibuprofen, naproxen, or aspirin unless specifically approved by your doctor, as these increase bleeding risk Home Monitoring: - Check your oxygen saturation at home using a pulse oximeter - Your oxygen level should remain above 90-92% at rest - If your oxygen level drops below 90% persistently or you feel short of breath, contact your doctor or seek emergency care Activity: - You may resume normal daily activities as tolerated - Avoid contact sports or activities with high risk of injury while on blood thinners - Limit alcohol consumption, as excessive alcohol increases bleeding risk Follow-Up Care: - Schedule an appointment with your primary care provider within 1-2 weeks for further management and to discuss the duration of anticoagulation therapy WHEN TO SEEK EMERGENCY CARE (Call 911 or go to the nearest emergency room immediately if you experience): Signs of worsening or new blood clots: - New or worsening chest pain - New or worsening shortness of breath - Rapid heart rate or feeling like your heart is racing - Coughing up blood - Sudden severe leg pain, swelling, or warmth Signs of serious bleeding: - Vomiting blood or material that looks like coffee grounds - Coughing up blood - Blood in urine (pink, red, or cola-colored) - Black, tarry, or bloody stools - Severe headache or dizziness - Any head injury or significant trauma, even if minor - Unusual bruising or bleeding that won't stop - Bleeding from gums or nose that doesn't stop with pressure - Heavier than normal menstrual bleeding (if applicable) Other warning signs: - Severe abdominal pain - Weakness or numbness on one side of your body - Difficulty speaking or understanding speech - Vision changes - Confusion or altered mental status General Precautions: - Inform all healthcare providers (including dentists) that you are taking a blood thinner - Contact your primary care provider before starting any new medications, including [id number] drugs or supplements - Use a soft toothbrush and electric razor to minimize bleeding risk - Be careful with sharp objects (knives, scissors, razors) - Wear shoes to protect your feet Questions? Contact your primary care provider's office if you have any questions or concerns about your condition or medications. Print Language: Kenyan Coding Level of Care Code ED [employer]ic for Yamila Rodríguez
[2025-03-06 22:11] VITALS: BP 117/50; PULSE 78; O2SAT 92
== END 2025-03-06 22:12 | disposition home or self-care (01) ==
PROVIDERS: Emergency Provider Physician Assistant; PCP Family Medicine
DX: I26.99 Other pulmonary embolism without acute cor pulmonale (principal); Z87.891 Personal history of nicotine dependence; Z85.3 Personal history of malignant neoplasm of breast; Z85.118 Personal history of other malignant neoplasm of bronchus and lung
CPT/HCPCS: 36415; 80053; 83880; 84484; 85025; 85610; 85730; 93005; 99284; J9999

== ENCOUNTER 2025-03-12 09:47 | Oncology outpatient (recurring) (ONCR) | payer MEDICARE, SELFPAY ==
[2025-02-19 09:17] LABS: Hematocrit 39.0 % (36-47); Hemoglobin 12.60 g/dL (11.27-16.99); Mean Corpuscular HGB Conc 32.3 g/dL (30-55); Mean Corpuscular Hemoglobin 30.6 pg (27-33); Mean Corpuscular Volume 94.7 fl (85-98); Nucleated Red Blood Cells % 0 %; Platelet Count 161 10^3/cmm (157-399); Red Blood Count 4.12 10^6/uL (3.85-5.65); White Blood Count 5.05 10^3/uL (3.29-11.43)
[2025-02-19 09:34] LABS: Alanine Aminotransferase 16 U/L (0-33); Albumin Level 3.1 g/dL (3.5-5.2); Alkaline Phosphatase 70 U/L (35-105); Anion Gap 14.2 (5-19); Aspartate Amino Transferase 15 U/L (0-32); Blood Urea Nitrogen 22 mg/dL (8-23); Calcium 9.1 mg/dL (8.5-10.5); Carbon Dioxide 24 mmol/L (22-29); Chloride 101 mmol/L (98-107); Globulin 4.5 g/dL (1.3-4.6); Glucose 114 mg/dL (65-115); Osmolality Calculated 286 mOsm/kg (285-295); Potassium 3.2 mmol/L (3.5-5.1); Sodium 136 mmol/L (136-145); Total Protein 7.6 g/dL (6.6-8.7)
[2025-02-19 11:11] VITALS: BP 126/74; PULSE 75; RESP 17; TEMP 36.4
[2025-02-26 09:19] LABS: Hematocrit 36.2 % (36-47); Hemoglobin 11.60 g/dL (11.27-16.99); Mean Corpuscular HGB Conc 32.0 g/dL (30-55); Mean Corpuscular Hemoglobin 30.7 pg (27-33); Mean Corpuscular Volume 95.8 fl (85-98); Nucleated Red Blood Cells % 0 %; Platelet Count 215 10^3/cmm (157-399); Red Blood Count 3.78 10^6/uL (3.85-5.65); White Blood Count 4.25 10^3/uL (3.29-11.43)
[2025-02-26 09:39] LABS: Alanine Aminotransferase 10 U/L (0-33); Albumin Level 3.1 g/dL (3.5-5.2); Alkaline Phosphatase 81 U/L (35-105); Anion Gap 12.8 (5-19); Aspartate Amino Transferase 12 U/L (0-32); Blood Urea Nitrogen 17 mg/dL (8-23); Calcium 9.1 mg/dL (8.5-10.5); Carbon Dioxide 24 mmol/L (22-29); Chloride 102 mmol/L (98-107); Globulin 3.9 g/dL (1.3-4.6); Glucose 101 mg/dL (65-115); Magnesium 1.8 mg/dL (1.7-2.3); Osmolality Calculated 282 mOsm/kg (285-295); Potassium 3.8 mmol/L (3.5-5.1); Sodium 135 mmol/L (136-145); Total Protein 7.0 g/dL (6.6-8.7)
[2025-03-12 10:41] LABS: Hematocrit 38.0 % (36-47); Hemoglobin 12.10 g/dL (11.27-16.99); Mean Corpuscular HGB Conc 31.8 g/dL (30-55); Mean Corpuscular Hemoglobin 30.7 pg (27-33); Mean Corpuscular Volume 96.4 fl (85-98); Nucleated Red Blood Cells % 0 %; Platelet Count 307 10^3/cmm (157-399); Red Blood Count 3.94 10^6/uL (3.85-5.65); White Blood Count 6.26 10^3/uL (3.29-11.43)
[2025-03-12 11:08] LABS: Alanine Aminotransferase 7 U/L (0-33); Albumin Level 3.2 g/dL (3.5-5.2); Alkaline Phosphatase 88 U/L (35-105); Anion Gap 15.0 (5-19); Aspartate Amino Transferase 13 U/L (0-32); Blood Urea Nitrogen 20 mg/dL (8-23); Calcium 9.2 mg/dL (8.5-10.5); Carbon Dioxide 22 mmol/L (22-29); Chloride 105 mmol/L (98-107); Globulin 4.0 g/dL (1.3-4.6); Glucose 156 mg/dL (65-115); Osmolality Calculated 292 mOsm/kg (285-295); Potassium 4.0 mmol/L (3.5-5.1); Sodium 138 mmol/L (136-145); Total Protein 7.2 g/dL (6.6-8.7)
== END 2025-03-21 23:59 | disposition home or self-care (01) ==
PROVIDERS: Internal Medicine Medical Oncology; PCP Family Medicine; Visit Provider Nurse Practitioner Family
DX: C34.12 Malignant neoplasm of upper lobe, left bronchus or lung; C50.312 Malignant neoplasm of lower-inner quadrant of left female breast; Z17.0 Estrogen receptor positive status [ER+]; R03.0 Elevated blood-pressure reading, without diagnosis of hypertension; I26.99 Other pulmonary embolism without acute cor pulmonale; J90 Pleural effusion, not elsewhere classified; Z87.891 Personal history of nicotine dependence; Z79.899 Other long term (current) drug therapy; Z53.9 Procedure and treatment not carried out, unspecified reason
CPT/HCPCS: 36591; 80053; 83615; 83735; 85025; 85378; 96360; 96375; 96523; 99214; 99215; J1100; J7050